=== PATIENT | male | born 1970 | race Caucasian/White ===

== ENCOUNTER 2018-11-18 14:13 | Day surgery (SDC) | payer BC, SELFPAY ==
[2018-11-18 14:53] VITALS: BP 128/82; PULSE 77; RESP 16; TEMP 37; O2SAT 99; BMI 25.4
[2018-11-18] MEDS: Cefazolin 2 GM in 0.9% Normal Saline 100 ML IV (17:15)
--- NOTE | 2018-11-18 17:17 | DCINST_ITS ---
Discharge Diet: Light diet - advance as tolerated Discharge Activity: Return to Normal Activity Call your doctor if your incision/area has: Sudden Increased Bleeding, Increased Pain/ Swelling, Increased Redness, Foul Smelling Discharge Call your doctor if you observe: Fever of 101 or Higher, Uncontrolled pain Suture Line Care: Avoid Pulling/Pushing, Avoid Pinching/Bending Allergies/Adverse Reactions: Allergies No Known Allergies Allergy (Verified 11/18/18 14:52) Medications to take at Discharge Ciprofloxacin [Cipro] 500 mg PO BID #6 tab 11/18/18 Hydrocodone/Acetaminophen [[place] 5-325 Tablet] 1 ea PO Q6H PRN PRN #20 tab 11/18/18 The following prescriptions were given: Ciprofloxacin [Cipro] 500 mg PO BID #6 tab Prescription Printed Hydrocodone/Acetaminophen [[place] 5-325 Tablet] 1 ea PO Q6H PRN PRN #20 tab PRN Reason: Pain Prescription Printed Primary Care Physician: Bob Dominique MD [Primary Care Provider] - Test Results: Test results from this visit will be discussed in further detail at your follow- up appointment, if applicable. Please Follow Up With: Dallin Mayers MD When: in 2 weeks, please call to make an appointment.
--- NOTE | 2018-11-18 17:37 | OP.PCM_ITS ---
Report of Operation Date of Procedure: 11/18/18 Pre-Operative Diagnosis: Right ureteral calculi with obstruction hydronephrosis Post-Operative Diagnosis: The same Surgery/Procedure Performed:: Cystoscopy, right retrograde, right stent placement interpretation fluoroscopic images, urine sent for culture. Description of Surgical Findings:: 48-year-old male who normally passes stones quite easily recently has had a stone in the right kidney is not passed for quite some time since the office for evaluation of then having some pain on the right side CAT scan was done that demonstrated a stone in the right kidney in the right proximal ureter right hydronephrosis. He did not appear ill or septic or sick but we decided to proceed with ureteroscopy and laser lithotripsy of the stone since he is not been able to pass it on his own he understands that he may need a stent if there is an injury to the ureter trauma perforation infection or any issues that require stent he requested not to have a stent but he understands it might be certain issues that would require a stent. 48-year-old male taken back to the operating room after smooth induction of anesthesia he is placed in dorsolithotomy position I went into the bladder with a 21 Portuguese rigid cystourethroscope he had a prior ureteral advancement surgery when he was a child he could tell that the both ureters were angulated very unusual fashion towards the mid trigone area probably from the ureteral reimplantation as a child, tried to cannulate the right ureteral orifice with a Glidewire but it was too difficult straight angle very gently try this a few times but could not get in so then I had to use a angle-tip 0.35 Glidewire with this I was able to fortunately get into the ureter advanced angle-tip wire up to the kidney once a wire and passed a stone that immediately I had pus coming down from the kidney purulent urine, I collected this urine was sent off as a culture could be sterile possibly given the fact that he had purulent infected looking urine decided that could not proceed with any treatment of the stone and will place a stent at this point. So over the wire advance a stent is a 6 Portuguese by 28 cm stent advanced a stent when he reached a stone that was quite difficult to get this then passed a stone a little bit of force of the views but then once able to get the stent past the stone that I pulled the wire the stent: Kidney bladder good position during the bladder well our plan is to bring him back for ESWL and blasto stones and then remove the stent at a later setting. Ago until his the findings of the reason why we could not proceed with laser the stone today. Type of Anesthesia:: General Drains: stent. - Admit VTE Documentation VTE Present on Admission: No VTE Mechan Device Prophylaxis: SCD's
[2018-11-18 17:49] VITALS: BP 127/98; BP 128/82; PULSE 82; RESP 16; TEMP 36.7; O2SAT 98
[2018-11-18 18:00] VITALS: BP 128/82; BP 129/96; PULSE 75; RESP 16; O2SAT 99
[2018-11-18] MEDS: Ketorolac 15 MG/ML Vial IV (18:04)
[2018-11-18 18:12] VITALS: BP 127/93; BP 128/82; PULSE 70; RESP 16; TEMP 36.7; O2SAT 97
[2018-11-18 18:42] VITALS: BP 128/82
== END 2018-11-18 18:44 | disposition home or self-care (01) ==
LOC: SDC 14:14 → AC 14:18
PROVIDERS: Family Provider Family Medicine; PCP Family Medicine; Referring Provider Urology; Visit Provider Urology
PROC: (CPT 52353; principal; 2018-11-18 16:10)
DX: N13.2 Hydronephrosis with renal and ureteral calculous obstruction (principal); Z87.442 Personal history of urinary calculi
CPT/HCPCS: 52332; 76000; 87070; 87075; 87205; J7120; C1769; J2405

== ENCOUNTER 2018-11-25 12:29 | Day surgery (SDC) | payer BC, SELFPAY ==
[2018-11-25 12:50] VITALS: BP 127/84; PULSE 55; RESP 16; TEMP 36.7; O2SAT 98; BMI 24.4
[2018-11-25] MEDS: Cefazolin 2 GM in 0.9% Normal Saline 100 ML IV (14:50)
--- NOTE | 2018-11-25 14:52 | DCINST_ITS ---
Discharge Diet: Light diet - advance as tolerated Discharge Activity: Return to Normal Activity Call your doctor if your incision/area has: Sudden Increased Bleeding Call your doctor if you observe: Fever of 101 or Higher Suture Line Care: Avoid Pulling/Pushing, Avoid Pinching/Bending Allergies/Adverse Reactions: Allergies No Known Allergies Allergy (Verified 11/25/18 12:49) Medications to take at Discharge NK 11/25/18 Primary Care Physician: Bob Dominique MD [Primary Care Provider] - Test Results: Test results from this visit will be discussed in further detail at your follow- up appointment, if applicable. Please Follow Up With: Dallin Mayers MD When: in 2 weeks, please call to make an appointment.
--- NOTE | 2018-11-25 16:01 | PCM.OPRPT ---
Report of Operation Date of Procedure: 11/25/18 Pre-Operative Diagnosis: right proximal ureteral calculi right renal calculi Post-Operative Diagnosis: Same Surgery/Procedure Performed:: Cystoscopy and stent removal right ESWL 2 ureter and kidney stone. Description of Surgical Findings:: 48-year-old male underwent stent placement last week presents today for shockwave lithotripsy he is placed supine on the table we then proceeded with shockwave lithotripsy first of the proximal stone around 3500 shockwaves were delivered to the stone in the proximal ureter we were then up to the kidney delivered another 8-700 shockwaves to the kidney this will broke up really quickly the one in the ureter did fragment several times performed a cystoscopy and stent removal look back up in the kidney still has some fragments in the proximal ureter with another 500 shockwaves was given to the stones in the ureter we went at a rate of 90 power ranged between 7 and 9 depending the location. At the end of the procedure the stone the broken up quite well but not completely cleared we will remove the stent hopefully can pass the stone was seen in a few weeks with a KUB. Type of Anesthesia:: General Drains: removed. - Admit VTE Documentation VTE Present on Admission: No VTE Mechan Device Prophylaxis: SCD's
[2018-11-25 16:12] VITALS: BP 120/93; BP 127/84; PULSE 97; RESP 18; TEMP 36.1; O2SAT 95
[2018-11-25 16:15] VITALS: BP 127/84; BP 127/91; PULSE 87; RESP 18; O2SAT 97
[2018-11-25 16:30] VITALS: BP 124/84; BP 127/84; PULSE 81; RESP 18; TEMP 36.3; O2SAT 100
[2018-11-25 18:01] VITALS: BP 127/84; BP 135/79; PULSE 80; RESP 16; TEMP 36.4; O2SAT 100
== END 2018-11-25 18:03 | disposition home or self-care (01) ==
LOC: SDC 12:30 → AC 12:39
PROVIDERS: Family Provider Family Medicine; PCP Family Medicine; Referring Provider Urology; Visit Provider Urology
PROC: (CPT 50590; principal; 2018-11-25 14:15)
DX: N20.2 Calculus of kidney with calculus of ureter (principal); R31.9 Hematuria, unspecified; Z87.442 Personal history of urinary calculi
CPT/HCPCS: 50590; J7120; J2405

== ENCOUNTER → 2018-12-13 15:04 | Outpatient (CLI) | payer BC, SELFPAY ==
[2018-11-25 12:50] VITALS: BMI 24.4
--- NOTE | 2018-12-13 15:25 | RAD_ITS ---
STUDY: X-RAY - ABDOMEN/PELVIS REASON FOR EXAM: Male, 48 years old. Kidney stone TECHNIQUE: Two AP supine views of the abdomen and pelvis. COMPARISON: Prior comparison studies are not available for review at this time. FINDINGS: There is a gassy appearance of the colon and small bowel. There is no demonstrated free abdominal air. The liver kidneys and spleen are mostly obscured on this study. There is abundant gas within the colon. On one image there is a suggestion that there may be a 3 mm stone overlying the left kidney versus artifact. Normal soft tissue structures. Normal visualized osseous structures. RAD/Abdomen Single View IMPRESSION: The kidneys are mostly obscured on this study. There is a suggestion of possible 3 mm stone in the left kidney possible 3 mm stone right kidney this is allowing for overlying gas within the colon and small bowel. Electronically Signed: Zo Loza MD at 17:03 EDT Tel , Service support ,
== END ==
PROVIDERS: Family Provider Family Medicine; PCP Family Medicine; Referring Provider Urology; Visit Provider Urology
DX: N20.0 Calculus of kidney (principal)
CPT/HCPCS: 74018

== ENCOUNTER → 2019-12-12 14:57 | Outpatient (CLI) | payer BC, SELFPAY ==
--- NOTE | 2019-12-12 15:00 | RAD_ITS ---
STUDY: X-RAY - ABDOMEN/PELVIS REASON FOR EXAM: Male, 49 years old. F/U FOR HX OF KIDNEY STONES. MOST RECENT WAS A YEAR AGO ON BOTH SIDES. TECHNIQUE: AP supine and upright views of the abdomen and pelvis. COMPARISON: None. FINDINGS: Normal visualized lung bases. There is an unremarkable bowel gas pattern. There is no demonstrated free abdominal air. The visualized liver, spleen and kidneys are grossly normal in size and morphology. No demonstrate calcifications overlying either renal shadow, or along the expected course of either ureter. However, one could be obscured by the overlying bowel gas and stool Normal soft tissue structures. There are diffuse degenerative changes of the visualized lumbar spine. RAD/Abdomen Single View IMPRESSION: No acute findings, retained stool Electronically Signed: Stephen Hines MD at 15:24 EDT , Service support ,
== END ==
PROVIDERS: PCP Family Medicine; Referring Provider Nurse Practitioner Adult Health; Visit Provider Nurse Practitioner Adult Health
DX: N20.9 Urinary calculus, unspecified (principal)
CPT/HCPCS: 74018

== ENCOUNTER 2020-08-09 15:19 | Outpatient (RCR) | payer BC, SELFPAY | END 2020-10-22 23:59 | LOC: IMMUN 15:19 | PROVIDERS: Visit Provider Family Medicine | DX: Z23 Encounter for immunization (principal) | CPT/HCPCS: 0001A; 0002A; 91300 ==

== ENCOUNTER 2024-05-04 02:15 | Emergency (ER) | payer BC, SELFPAY ==
[2024-05-04 02:16] VITALS: BP 148/97; PULSE 73; RESP 16; TEMP 36.4; O2SAT 99; BMI 23.8
[2024-05-04 02:18] VITALS: BP 148/97; PULSE 73; RESP 16; TEMP 36.4; O2SAT 99
--- NOTE | 2024-05-04 02:21 | CT_ITS ---
INDICATION: left flank pain EXAMINATION: CT ABDOMEN AND PELVIS WITHOUT CONTRAST - CT Abdomen And Pelvis W/O Contrast Injection TECHNIQUE: Helically acquired images were obtained of the abdomen and pelvis without oral or IV contrast. A radiation dose optimization technique was used for this scan. IV Contrast dosage and agent: None. Oral contrast: None. RADIATION DOSAGE (If Supplied By Facility): CTDIvol = ( 6.88 ) mGy, DLP = ( 383.25 ) mGycm COMPARISON: No relevant prior comparison study available FINDINGS: LOWER CHEST: Lung bases are clear. No cardiomegaly or pericardial effusion. LIVER: The liver is normal in size, shape, and attenuation. No focal mass. GALLBLADDER AND BILIARY TREE: The gallbladder is normally distended. No gallstones. No gallbladder wall thickening or edema. No intra- or extrahepatic biliary ductal dilation. PANCREAS: No focal cystic or solid mass. SPLEEN: Normal size without focal cystic or solid mass. ADRENAL GLANDS: No nodules. KIDNEYS AND URETERS: Normal renal size and position. Mild left hydroureteronephrosis. There is a 0.6 cm mid ureteral calculus at the L3-L4 level. Additional nonobstructing bilateral renal calculi. On the left at least 3 calculi are seen, measuring up to 0.4 cm at the midpole. On the right at least 4 calculi are present measuring up to 0.5 cm at the upper pole. PERITONEUM: No ascites or free air. No other fluid collection. BOWEL: The stomach is unremarkable. Normal caliber small bowel. No obstruction. No colonic wall thickening or inflammatory changes. Appendix not seen. Colonic diverticulosis without diverticulitis. LYMPH NODES: No enlarged mesenteric or retroperitoneal lymph nodes. VESSELS: Aorta is non-dilated. URINARY BLADDER: Unremarkable. REPRODUCTIVE ORGANS: No pelvic masses. ABDOMINAL WALL: No discrete abdominal or pelvic wall hernia. BONES: No acute or suspicious osseous abnormality. CT/Abdomen/Pelvis without Cont IMPRESSION: Mild left hydroureteronephrosis with a 0.6 cm mid ureteral obstructing calculus. Additional bilateral nonobstructing renal calculi. Electronically Signed: Ulises Valera MD at 4:04 EST ,
--- NOTE | 2024-05-04 02:25 | ED.VIS.GI ---
HPI HPI - GI History of Present Illness Chief Complaint: Flank Pain Informant: patient Narrative Narrative: Patient with sudden onset of pain in the left flank radiating down into the left lower quadrant an hour or so ago feels similar to kidney stone pain he has had in the past. Pain is colicky. Nausea but no vomiting. No problems urinating or gross hematuria. Has had lithotripsy and procedures to remove stones in the past. No syncope or other systemic symptoms prior to this. Drink a lot of water and took acetaminophen prior to coming. PFSH PFSH Medical History Kidney stones Home Medications ?Medication ?Instructions ?Recorded ?Last Taken ?Type ondansetron 8 mg disintegrating 8 mg PO Q8H PRN nausea and 05/04/24 Unknown Rx tablet vomiting #20 tabs oxycodone-acetaminophen 5 mg-325 1 tab PO Q6H PRN PRN Pain 3 days 05/04/24 Unknown Rx mg tablet #12 TABLETS Allergy/AdvReac Type Severity Reaction Status Date / Time No Known Allergies Allergy Verified 05/04/24 02:16 Surgical History S/P ACL repair History of appendectomy H/O lithotripsy Social History Smoking Status: Never smoker ROS ROS ED Constitutional Constitutional ED: Denies chills or fever(s) Eyes Eyes: Denies change in vision or diplopia ENT ENT ED: Denies rhinorrhea or sore throat Cardiovascular Cardiovascular: Denies chest pain or palpitations Respiratory/Chest Respiratory/Chest: Denies cough or dyspnea Gastrointestinal Gastrointestinal: Reports abdominal pain and nausea; Denies diarrhea or vomiting Genitourinary Genitourinary ED: Reports flank pain; Denies dysuria or hematuria Musculoskeletal Musculoskeletal: Denies back pain or neck pain Integumentary Denies abscess or rash Neurologic Neurologic: Denies headache(s), paresthesias or weakness Psychiatric Psychiatric: Denies anxiety or suicidal thoughts EXAM Physical Exam Const Vital Signs: 05/04/24 02:16 05/04/24 02:18 05/04/24 03:30 Temperature 97.5 F L 97.5 F L 97.8 F Temperature Source Oral Oral Oral Pulse Rate 73 73 70 Respiratory Rate 16 16 18 Blood Pressure 148/97 H 148/97 H 136/91 H Blood Pressure Mean 114 114 106 Pulse Ox 99 99 96 Oxygen Delivery Method Room Air Room Air Room Air 05/04/24 04:00 05/04/24 04:08 Temperature 98.1 F 98.1 F Temperature Source Oral Pulse Rate 68 67 Respiratory Rate 18 18 Blood Pressure 127/86 H 127/86 H Blood Pressure Mean 99 99 Pulse Ox 96 97 Oxygen Delivery Method Room Air Positive well nourished and well developed General Appearance ED: well developed and NAD HEENT Reports moist mucous membranes normocephalic and atraumatic Eyes PERRL and EOMs intact bilaterally Neck full ROM and supple Resp normal respiratory effort and clear to auscultation bilaterally Cardio regular rate, regular rhythm and no murmurs GI non-tender and non-distended Auscultation: normoactive bowel sounds Palpation: soft Back/Spine no CVA tenderness General Back: other FROM Extremity normal to inspection General Extremety ED: Negative for edema, pulses abnormal or tenderness General Extremity: Negative for edema or pulses abnormal Neuro oriented x3, CN's II-XII intact bilaterally and no sensory deficits noted Sensorium / Orientation: awake and alert Motor Exam: strength 5/5 throughout Skin no rashes or lesions noted and no wounds MDM MDM MDM Narrative Medical decision making narrative: Patient doing much better after Toradol, Zofran, morphine. Urine shows no sign of infection. There are calcium oxalate crystals present. Given his history of needing procedures to get stone out, obtained a CT to obtain more details about the stone he has now. I reviewed the images and the report which I agree with, there is a mid ureteral stone that is approximately 6 mm in diameter. Several other nephroliths bilaterally also noted which I discussed with him. Flomax not indicated at this time given its position. Patient symptoms are well-controlled here with single dosing of the above medications and he is stable for outpatient expectant management and follow-up as needed, we discussed reasons to return he is comfortable with that plan given prescriptions for analgesics and antiemetics. Lab Data Attestation: I reviewed the patient's lab results. Labs: Laboratory Results - last 24 hr 05/04/24 03:10 Urine Color Yellow Urine Clarity Clear Urine pH 6.0 Ur Specific [place] 1.015 Urine Protein 15 H Urine Glucose (UA) Normal Urine Ketones 5 H Urine Occult Blood 150 H Urine Nitrite Negative Urine Bilirubin Negative Urine Urobilinogen Normal Ur Leukocyte Esterase 25 H Urine RBC 10-25 SEEN Urine WBC 0-5 SEEN Ur Squamous Epith Cells 0-5 SEEN Calcium Oxalate Crystal 3+ Urine Bacteria 0 SEEN Urine Mucus 0 SEEN Radiography Diagnostic Testing: Clinical Impression(s) from Imaging Studies Abdomen/Pelvis CT 05/04/24 02:21 IMPRESSION: Mild left hydroureteronephrosis with a 0.6 cm mid ureteral obstructing calculus. Additional bilateral nonobstructing renal calculi. Electronically Signed: Ulises Valera MD at 4:04 EST Reading Location ID and State: [facility] / [place] Tel , Service support , Discharge Plan Triage Chief Complaint: Flank Pain ED Provider: Kristian Styles Dx/Rx/DC Orders Clinical Impression: Ureteral colic, Ureterolithiasis, Bilateral nephrolithiasis Instructions: ED Kidney Stone with Pain Prescriptions: New ondansetron 8 mg tablet,disintegrating 8 mg PO Q8H PRN (Reason: nausea and vomiting) Qty: 20 0RF oxycodone-acetaminophen 5-325 mg tablet 1 tab PO Q6H PRN PRN (Reason: Pain) 3 Days Qty: 12 0RF Primary Care Provider: Bob Dominique Referrals: Dallin Mayers MD [Med Staff - Active Staff] - 1 Week if not improving Bob Dominique MD [Primary Care Provider] - Activity Restrictions/Additional Instructions: For uncontrollable symptoms despite the prescriptions, return to the ER Print Language: Indonesian Disposition Disposition: Home, Self Care
[2024-05-04] MEDS: Ondansetron 4 MG/2 ML Vial IV (02:28)
[2024-05-04] MEDS: Morphine 4 MG/ML Syringe IV (02:28)
[2024-05-04] MEDS: Ketorolac 30 MG/ML Syringe IV (02:28)
[2024-05-04 03:15] LABS: Bacteria 0 SEEN /hpf (None Seen); Mucous, Urine 0 SEEN /hpf (<or=2+)
[2024-05-04 03:16] LABS: Color, Urine Yellow (Yellow); Glucose, Dipstick Normal (Normal); Ketone-Dipstick 5 mg/dl (Negative); Leukocyte Esterase-Dipstick 25 /ul (Negative); Nitrite-Dipstick Negative (Negative); Occult Blood-Urine 150 /ul (Negative); Protein-Dipstick 15 mg/dl (Negative); Specific Gravity, Urine 1.015 (1.002-1.030); Urine Bilirubin Dipstick Negative (Negative); Urine Clarity Clear (Clear); Urine Urobilinogen Normal (Normal)
[2024-05-04 03:30] VITALS: BP 136/91; PULSE 70; RESP 18; TEMP 36.6; O2SAT 96
[2024-05-04 03:51] LABS: Red Blood Cells-Urine 10-25 SEEN /hpf (0-5); White Blood Cells 0-5 SEEN /hpf (0-5)
[2024-05-04 03:52] LABS: Calcium Oxalate Crystals Ur 3+ /hpf (<or=2+); Squamous Epithelial Cells - UA 0-5 SEEN /hpf (0-5)
[2024-05-04 04:00] VITALS: BP 127/86; PULSE 68; RESP 18; TEMP 36.7; O2SAT 96
[2024-05-04 04:08] VITALS: BP 127/86; PULSE 67; RESP 18; TEMP 36.7; O2SAT 97
[2024-05-04] MEDS: oxyCODONE 5 MG Tablet PO (04:16)
== END 2024-05-04 04:33 | disposition home or self-care (01) ==
PROVIDERS: Emergency Provider Emergency Medicine; PCP Family Medicine; Visit Provider Emergency Medicine
DX: N13.2 Hydronephrosis with renal and ureteral calculous obstruction (principal); N23 Unspecified renal colic
CPT/HCPCS: 74176; 81001; 96374; 96375; 99283; A4216; J2405

== ENCOUNTER → 2025-02-26 | Outpatient (CLI) | payer OTHER, SELFPAY ==
--- NOTE | 2025-02-26 10:55 | RAD_ITS ---
PROCEDURE: ABDOMEN SINGLE VIEW 02/26/2025 REASON FOR EXAM: KIDNEY STONE. Recently passed a stone. Gets frequent stones. No pain today. TECHNIQUE: Procedure Code: RADABD Modality: DX Procedure: ABDOMEN SINGLE VIEW COMPARISON: None. FINDINGS: LUNG BASES: Lung bases clear where seen. BOWEL: The bowel gas pattern is unremarkable. No bowel obstruction. PERITONEUM/SOFT TISSUES: No appreciable free air. Few calcifications projected over the left kidney, the largest is 3.3 mm. BONES: No acute osseous abnormality. RAD/Abdomen Single View IMPRESSION: Left-sided nephrolithiasis. Reading Location: [id number]
== END | disposition home or self-care (01) ==
LOC: RAD 10:50
PROVIDERS: PCP Family Medicine; Referring Provider Urology; Visit Provider Urology
DX: N20.2 Calculus of kidney with calculus of ureter (principal)
CPT/HCPCS: 74018

== ENCOUNTER → 2025-03-07 | Outpatient (CLI) | payer OTHER, SELFPAY ==
--- NOTE | 2025-03-07 07:49 | EKG12_ITS ---
Test Reason : PRE OP Blood Pressure : */* mmHG Vent. Rate : 67 BPM Atrial Rate : 67 BPM P-R Int : 166 ms QRS Dur : 86 ms QT Int : 406 ms P-R-T Axes : 59 85 71 degrees QTcB Int : 429 ms Normal sinus rhythm Normal ECG Confirmed by Robin Doe ([id number]), senior technical editor TERENCE WHITT ([id number]) on 03/07/2025 1:26:12 PM Referred By: Dallin Mayers Confirmed By: Robin Doe
--- OUTSIDE RECORDS SUMMARY | 2025-03-07 08:06 | XMS RPT_ITS | CCD ---
Author Organization [facility] Care Team Providers Care Dry Mixer Name Role Phone Jacques Avery MD Primary Care Provider PARTH STONE Attending Unavailable SALLIE BRADFORD Primary Care Unavailable Jacques Avery MD Primary Care Provider Jacques Avery MD Primary Care Provider [phone] Monique REGISTERED REPRESENTATIVE.Gilbert ROBLEDO Unavailable Esperanza Perez PA-C Unavailable Jacques Avery MD Primary Care Provider Monique REGISTERED REPRESENTATIVE.QUALITY ASSURANCE ASSISTANTGilbert Unavailable Esperanza Perez PA-C [facility]available [facility] Primary [facility] Unavailable Kristian Styles Attending Unavailable Dallin Mayers Attending Unavailable RianaDallin minaya Referring Unavailable ElderBob moreira Primary Care Unavailable RianaDallin minaya Attending Unavailable RianaDallin Referring Unavailable Elderbroriki, Bob Primary Care Unavailable JACQUES AVERY Primary Care Unavailable JACQUES AVERY Primary Care Unavailable GILBERT LEMONS Attending Unavailable JACQUES AVERY Primary Care Unavailable ESPERANZA PEREZ Referring Unavailable JACQUES AVERY Primary Care Unavailable JACQUES AVERY Primary Care Unavailable JACQUES AVERY Primary Care Unavailable ESPERANZA PEREZ Attending Unavailable JACQUES AVERY Primary Care Unavailable ESPERANZA PEREZ Attending Unavailable JACQUES AVERY Primary Care Unavailable Allergies Allergy Classification Reported Allergen(s) Allergy Type Date of Onset Reaction(s) Facility (4 sources) beta-Blocking agent Propensity to adverse reactions to drug 1 Contraindicatio n-[facility] Work Phone: (20 sources) Seasonal allergy; Translations: [SEASONAL ALLERGIES] Allergy to substance 3 Other: See Comments [facility] (3 sources) beta-Blocking agent Propensity to adverse reactions to drug 1 Contraindicatio n-[facility] Work Phone: (1 source) ALLERGIES NOT ON FILE; Translations: [ALLERGIES NOT ON FILE] Propensity to adverse reactions (disorder) [facility] 3 Repository Medications Current Medications Medication Drug Class(es) Dates Sig (Normalized) Sig (Original) [id number] 200 actuat albuterol 0.09 mg/actuat metered dose inhaler (20 sources) beta2-Adrenergic Agonist Start: 02-15-2024 End: 12-05-2024 take 2 puff(s) by inhalation every four hours as needed for wheezing albuterol HFA (VENTOLIN HFA) 90 mcg/actuation inhaler Indications: Acute cough Inhale 2 Puffs as instructed every 4 hours as needed for wheezing/shortness of breath. 1 Each 08/11/2024 12/05/2024 Discontinued Start: 02-02-2022 End: 12-31-2023 take 2 puff(s) by inhalation every four hours as needed for wheezing albuterol HFA (VENTOLIN HFA) 90 mcg/actuation inhaler Inhale 2 Puffs as instructed every 4 hours as needed for wheezing/shortness of breath. 1 Each 0 02/02/2022 12/31/2023 Discontinued Comment on above: Inhale 2 Puffs as in structed every 4 hours as needed for wheezing/shortness of breath. amoxicillin 875 mg / clavulanate 125 mg oral tablet (1 source) Penicillin-class Antibacterial Start: 025 End: 025 take 1 tablet by mouth twice daily amoxicillin-clavula jorgito potassium (AUGMENTIN) 875-125 mg per tablet Indications: Bacterial sinusitis Take 1 tablet by mouth two times a day for 5 days. 10 tablet 07/23/2024 07/28/2024 Active azithromycin 250 mg oral tablet (1 source) Macrolide Antimicrobial Start: 024 End: azithromycin (ZITHROMAX Z-DARRYL) 250 mg tablet Take 2 tablets day one, then, 1 tablet daily until gone. 6 tablet 0 12/31/2023 01/05/2024 Active benzonatate 100 mg oral capsule (20 sources) Non-narcotic Antitussive Start: End: take 1 capsule by mouth three times daily as needed for cough benzonatate (TESSALON PERLE) 100 mg capsule Indications: Acute cough Take 1 capsule by mouth three times a day as needed for cough. 20 capsule 08/11/2024 12/05/2024 Discontinued Start: 02-02-2022 End: 12-31-2023 take 1 capsule by mouth every eight hours as needed benzonatate (TESSALON PERLE) 100 mg capsule Take 1 capsule by mouth three times daily as needed for cough. 20 capsule 0 02/02/2022 12/31/2023 Discontinued Comment on above: Take 1 capsule by [facility] three times daily as needed for cough. cyclobenzaprine hydrochloride 10 mg oral tablet (4 sources) Muscle Relaxant Start: 2024 take 1 tablet by mouth every eight hours as needed cyclobenzaprine (FLEXERIL) 10 mg tablet Take 1 tablet by mouth three times a day as needed for muscle spasm. 15 tablet 12/05/2024 Active [id number] 0.3 ml EPINEPHrine 1 mg/ml auto-injector (5 sources) alpha-Adrenergic Agonist, beta-Adrenergic Agonist, Catecholamine Start: 2020 End: 2021 EPINEPHrine (EPIPEN 2-DARRYL) 0.3 mg/0.3 mL auto-injector Inject 0.3 mL intramuscularly as needed. For allergic reaction.Seek emergent medical care immediately after use.Disp:1 2-pakw/system trainer 1 Each 2 02/12/2021 02/02/2022 Discontinued Comment on above: Inject 0.3 mL intram uscularly as needed. For allergic reaction.Seek emergent medical care immediately after use.Disp:1 2-pakw/system trainer methylPREDNISolone (3 sources) Corticosteroid Start: 2024 End: 2024 methylPREDNISolone (MEDROL, DARRYL,) 4 mg Dose-Pack Follow dosing instructions, take with food. 21 tablet 12/25/2024 12/31/2024 Active Start: 02-02-2022 End: 02-08-2022 methylPREDNISolone (MEDROL, DARRYL,) 4 mg Dose-Pack Follow dosing instructions, take with food. 21 tablet 0 02/02/2022 02/08/2022 Active Comment on above: Follow dosing instru ctions, take with food. naproxen 500 mg oral tablet (4 sources) Nonsteroidal Anti-inflammatory Drug Start: 12-05-2024 take 1 tablet by mouth every twelve hours as needed naproxen (NAPROSYN) 500 mg tablet Take 1 tablet by mouth two times a day as needed (for pain/inflammation) . Take with food. 30 tablet 12/05/2024 Active Completed/Discontinued Medications Medication Drug Class(es) Dates Sig (Normalized) Sig (Original) fluticasone propionate 0.05 mg/actuat metered dose nasal spray (17 sources) Corticosteroid Start: 01-13-2021 End: 12-31-2023 take 2 spray(s) by mouth once daily fluticasone (FLONASE) 50 mcg/actuation nasal spray Use 2 Sprays in each nostril once daily. Rinse mouth after use. 1 Bottle 2 01/13/2021 12/31/2023 Discontinued Comment on above: Use 2 Sprays in each nostril once daily. Rinse mouth after use. sertraline 50 mg oral tablet (17 sources) Serotonin Reuptake Inhibitor Start: 09-22-2021 End: 12-31-2023 sertraline (ZOLOFT) 50 mg tablet Take 1/2 tablet daily x6 days then go up to 1 tablet daily. 30 tablet 2 09/22/2021 12/31/2023 Discontinued Start: 01-13-2021 sertraline (ZO LOFT) 50 mg tablet Take 1/2 tablet daily x6 days then go up to 1 tablet daily. 30 tablet 2 01/13/2021 Active Comment on above: Take 1/2 tablet iftikhar y x6 days then go up to 1 tablet daily. sod sulf-pot chloride-mag sulf (SUTAB) 1.479-0.188- 0.225 gram tab (1 source) Start: 02-09-2022 End: 02-11-2022 sod sulf-pot chloride-mag sulf (SUTAB) 1.479-0.188- 0.225 gram tab Indications: Screening for colon cancer Take 12 tablets by mouth as directed for 2 days. Follow instructions that have been given to you by your provider's office. (Part 1, take 12 tablets. Part 2, take 12 tablets). 24 tablet 0 02/09/2022 02/11/2022 Comment on above: Take 12 tablets by tamiko heidi as directed for 2 days. Follow instructions that have been given to you by your provider's office. (Part 1, take 12 tablets. Part 2, take 12 tablets). Problems Active Problems Problem Classification Problem Date Documented Da te Episodic/Chronic Anxiety disorders (20 sources) Acute stress disorder; Translations: [Acute stress reaction] Onset: 02-11-2021 02-11-2021 Chronic Asthma (20 sources) Reactive airway disease; Translations: [Unspecified asthma, uncomplicated] Onset: 10-15-2012 05-12-2021 Chronic Calculus of urinary tract (20 sources) Kidney stone; Translations: [Calculus of kidney] Onset: 04-29-2006 03-18-2009 Episodic E Codes: Natural/environment (1 source) Dog bite - wound; Translations: [Bitten by dog, initial encounter] 10-05-2023 Episodic Immunizations and screening for infectious disease (1 source) Viral screening status; Translations: [Encounter for screening for other viral diseases] 01-06-2024 Episodic Other connective tissue disease (2 sources) Plantar fasciitis; Translations: [Plantar fascial fibromatosis] 12-25-2024 Episodic Other connective tissue disease (1 source) Plantar fascial fibromatosis; Translations: [Plantar fasciitis] Onset: 12-25-2024 Episodic Other lower respiratory disease (2 sources) Cough; 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] Episodic Other screening for suspected conditions (not mental disorders or infectious disease) (6 sources) Patient encounter status; Translations: [Encounter for screening for malignant neoplasm of colon] Episodic Other skin disorders (1 source) Keloid scar; Translations: [Hypertrophic scar] 11-24-2024 Episodic Other upper respiratory disease (20 sources) Seasonal allergy; Translations: [Other seasonal allergic rhinitis] Onset: 08-09-2015 08-09-2015 Chronic Other upper respiratory disease (20 sources) Allergic rhinitis due to animals; Translations: [Allergic rhinitis due to animal (cat) (dog) hair and dander] Onset: 02-12-2021 02-12-2021 Chronic Other upper respiratory disease (20 sources) Allergic rhinitis due to pollen; Translations: [Allergic rhinitis due to pollen] Onset: 02-12-2021 02-12-2021 Chronic Other upper respiratory infections (1 source) Bacterial sinusitis; Translations: [Chronic sinusitis, unspecified] 07-23-2024 Chronic Other upper respiratory infections (1 source) Acute upper respiratory infection; Translations: [Acute upper respiratory infection, unspecified] 12-31-2023 Episodic Screening and history of mental health and substance abuse codes (1 source) Encounter for screening for depression; Translations: [Screening for depression] Onset: 12-05-2024 Episodic Spondylosis; intervertebral disc disorders; other back problems (3 sources) Low back pain; Translations: [Lumbar back pain] 12-05-2024 Episodic Sprains and strains (3 sources) Low back strain; Translations: [Strain of muscle, fascia and tendon of lower back, subsequent encounter] Onset: 12-25-2024 12-25-2024 Episodic Unclassified (1 source) Lumbar back pain; Translations: [Lumbar back pain] Onset: 12-05-2024 Past or Other Problems Problem Classification Problem Date Documented Da te Episodic/Chronic Abdominal pain (1 source) Unspecified abdominal pain; Translations: [Unspecified abdominal pain] Onset: 06-02-2024 Episodic Diabetes mellitus without complication (20 sources) High hemoglobin A1c level; Translations: [Other abnormal glucose] Onset: 01-13-2021 01-13-2021 Episodic Other skin disorders (1 source) Hypertrophic scar; Translations: [Keloid scar] Onset: 11-24-2024 Episodic Other upper respiratory disease (20 sources) Deviated nasal septum; Translations: [Deviated nasal septum] Onset: 12-28-2016 12-28-2016 Episodic Results Test Name Value Interpretation Reference Range Facility Abdomen Single Viewon 2024 Abdomen Single View [facility] Imaging Services [address] [place] [id number] Abdomen Single View MR#: [id number] Acct: [id number] Name: MATTHEW VIVAR Rep #: [id number] : 1970 M 54 From: Penny Tomlinson MD PCP: Dr. Bob Dominique MD Status: REG CLI Study: Abdomen Single View Date of Exam: 02/26/25 Exam# [id number] Ordering Dr: Dallin Mayers MD PROCEDURE: ABDOMEN SINGLE VIEW 02/26/2025 REASON FOR EXAM: KIDNEY STONE. Recently passed a stone. Gets frequent stones. No pain today. TECHNIQUE: Procedure Code: RADABD Modality: DX Procedure: ABDOMEN SINGLE VIEW COMPARISON: None. FINDINGS: LUNG BASES: Lung bases clear where seen. BOWEL: The bowel gas pattern is unremarkable. No bowel obstruction. PERITONEUM/SOFT TISSUES: No appreciable free air. Few calcifications projected over the left kidney, the largest is 3.3 mm. BONES: No acute osseous abnormality. RAD/Abdomen Single View IMPRESSION: Left-sided nephrolithiasis. Reading Location: [facility] CC: Dr. Dallin Mayers MD; Dr. Bob Dominique MD Staff Trainer: Signed Normal [facility] CNOVon 12-25-2024 [facility] Office Visit (FAMPWS ) ----- GHAZALAMATTHEW Riley ([id number]) 1970 M Date Time Provider Department 12/25/24 7:40 AM ESPERANZA PEREZ FAMPWS During your visit today, we recorded the following information about you: Temperature Pulse Respiration Blood pressure 96.4 degrees 70/minute 12/minute 120/86 Weight 78.9 kg Esperanza Perez PA-C 12/25/2024 8:15 AM Signed Chief Complaint Patient presents with: Follow Up HPI Matthew Vivar is a 54 year old male who presents here today for recheck. Back Pain: - Persistent back pain, described as "ebbing and flowing." - Saw me on 12/05/2024 for similiar symptoms - Worsened after a recent trip to [place]; unable to sit up in bed without rolling over. - Pain exacerbated after moving a dresser, felt a "pop" in the back. - Initially managed with naproxen and a muscle relaxant, but reports minimal relief. - Alternated naproxen with Tylenol and engaged in stretching exercises, noting improvement. - Pain improved with activity, such as hiking; worsened with prolonged rest. - Able to play pickleball vigorously last night, resulting in mild soreness this morning. - Denies radicular pain or paresthesia in the lower extremities. - Recent x-ray showed mild osteophytes; no significant spinal changes. Nephrolithiasis: - Passed a small stone (1-2 mm) during the trip to [place]. - Uncertain if some pain was related to nephrolithiasis. - History of passing stones 2-4 mm in size, usually asymptomatic. Plantar Fasciitis: - Left foot plantar fasciitis, initially improving but currently pretty sore. Past medical history, appointments, medications, allergies reviewed. Previous Medical History PAST MEDICAL HISTORY[1] Previous Surgical History PAST SURGICAL HISTORY Procedure Laterality Date APPENDECTOMY HX COLONOSCOPY 03/20/2022 repeat in 10 years PAST SURGICAL HISTORY OF 1992 2000 2003 rt. and left knee reconstruction PAST SURGICAL HISTORY OF 05/17/1977 reconstruction of ureters PAST SURGICAL HISTORY OF 05/17/1987 appendix PAST SURGICAL HISTORY OF ~2009,2010, 2018 lithotripsy Family History FAMILY HISTORY[2] Patient Allergies ALLERGIES[3] Current Medications Meds Previous to this Encounter[4] Social History SOCIAL HISTORY[5] Review of Symptoms REVIEW OF SYSTEMS Musculoskeletal: (+) low back pain, (+) morning back stiffness, (+) left foot pain Neurological: (-) radiating leg pain SEE HPI EXAM: BP 120/86 Pulse 70 Temp (!) 35.8 ?C (96.4 ?F) Resp 12 Wt 78.9 kg (174 lb) SpO2 98% BMI 24.04 kg/m? General Appearance: Well appearing, alert, in no acute distress, well-hydrated, well nourished.. Health Maintenance List Pneumococcal Vaccine: 50+(1 of 1 - PCV) Never done Influenza Vaccine(1) due on 01/15/2025 Depression Screening due on 12/05/2025 Diabetes Screening due on 01/05/2027 Lipid Screening due on 01/05/2029 Colorectal Cancer Screening due on 03/20/2032 DTaP,Tdap,Td Vaccine(4 - Td or Tdap) due on 10/04/2033 Hepatitis B Vaccine Completed Hepatitis C Screening Completed Shingrix Vaccine Completed HIV Screening Discontinued Data reviewed RESULT: Counting reference: Lumbosacral junction. For the purposes of this report, L4-5 is considered the level of the iliac crest and assume there are 5 lumbar-type vertebrae. Anatomic variant: None. Vertebral body heights and sagittal alignment are maintained. Disc spaces are preserved with tiny ventral endplate osteophytes at several levels. Sacroiliac joints are intact. Assessment and Plan 1. Lumbar strain, subsequent encounter (S39.097D) - Acute exacerbation following recent travel and physical activity; symptoms improving with movement and stretching. - X-ray showed very mild osteophytes, no significant spinal changes. - No radicular symptoms on exam. - Start medrol pack; discussed potential side effects (increased appetite, insomnia, adrenal effects, hyperglycemia) and rationale for short-term use. - Refer to physical therapy for back and core strengthening; home exercises encouraged. - MRI may be considered if symptoms persist after PT. 2. Plantar fasciitis (M72.2) - Left foot pain worsening; to be addressed concurrently in PT. - Start steroid taper as above. 3. Personal history of urinary calculi (Z87.442) - Recent passage of a small stone (1-2 mm) while in [place]; no acute concerns at this time. Esperanza Perez PA-C Recording using [employer] software for draft documentation of the visit was discussed with the patient/authorized group sales representative; all questions welcomed and answered. Patient/authorized group sales representative agreed to proceed [1] Past Medical History: 12/28/2016: Deviated septum Comment: To the right 01/13/2021: Elevated hemoglobin A1c 10/2012: Reactive airway disease (HCC) Comment: small airway response to bronchodilator on (more content not included)... Normal [facility] CNOVon 12-05-2024 [facility] Office Visit (FAMPWS ) ----- MATTHEW VIVAR ([id number]) 1970 M Date Time Provider Department 12/05/24 7:20 AM ESPERANZA PEREZ During your visit today, we recorded the following information about you: Temperature Pulse Respiration Blood pressure 97 degrees 71/minute 16/minute 106/86 Weight 78.9 kg Esperanza Perez PA-C 12/05/2024 7:51 AM Signed Chief Complaint Patient presents with: Pain, Back HPI Matthew Vivar is a 54 year old male who presents here today for Above Complaints.. Right Lower Back Pain: - Dull, aching pain in the right lower back x1 week. - Onset after playing softball and pickleball; no known trauma. - Pain is most noticeable at night when lying down and in the morning upon waking. - Aggravated by sitting up from a lying position. - Alleviated somewhat by stretching and yoga. - Pain is persistent but not severe; does not significantly improve with ibuprofen 400 mg or Aleve 440 mg. - Denies radiation of pain, numbness, or tingling in the legs. - No urinary symptoms. - History of cervical disc bulge; concerned about possible lumbar disc involvement. - Upcoming trip to [place] on Wednesday; concerned about managing pain during travel. Past medical history, appointments, medications, allergies reviewed. Previous Medical History PAST MEDICAL HISTORY Diagnosis Date Deviated septum 12/28/2016 To the right Elevated hemoglobin A1c 01/13/2021 Reactive airway disease (HCC) 10/2012 small airway response to bronchodilator on PFT Renal calculi Seasonal allergies 08/09/2015 Previous Surgical History PAST SURGICAL HISTORY Procedure Laterality Date APPENDECTOMY HX COLONOSCOPY 03/20/2022 repeat in 10 years PAST SURGICAL HISTORY OF 1992 2000 2003 rt. and left knee reconstruction PAST SURGICAL HISTORY OF 05/17/1977 reconstruction of ureters PAST SURGICAL HISTORY OF 05/17/1987 appendix PAST SURGICAL HISTORY OF ~2009,2010, 2018 lithotripsy Family History FAMILY HISTORY Problem Relation Age of Onset Lipids Mother Hypertension Father other (Parkinsons Disease [Other]) Father No Known Problems Sister Cancer Maternal Grandmother gastric Ischemic Heart Disease Maternal Grandfather Colon Cancer Paternal Grandmother age 70's. spread to liver Parkinson?s Disease Paternal Grandfather Breast Cancer Paternal Aunt Diabetes No Family History Stroke No Family History Bleeding disorder No Family History Patient Allergies ALLERGIES Allergen Reactions Seasonal Allergies Other: See Comments cats trees (July, August and September) molds (July through March) ragweed (December, January and February) Current Medications Current Outpatient Medications on File Prior to Visit Medication Sig albuterol HFA (VENTOLIN HFA) 90 mcg/actuation inhaler Inhale 2 Puffs as instructed every 4 hours as needed for wheezing/shortness of breath. benzonatate (TESSALON PERLE) 100 mg capsule Take 1 capsule by mouth three times a day as needed for cough. No current facility-administered medications on file prior to visit. Social History Social History Tobacco Use Smoking status: Never Smokeless tobacco: Never Vaping Use Vaping status: Never Used Substance Use Topics Alcohol use: Yes Comment: once a week Drug use: No Review of Symptoms REVIEW OF SYSTEMS SEE HPI EXAM: BP 106/86 (BP Site: Right Arm, BP Position: Sitting, BP Cuff Size: Regular Adult) Pulse 71 Temp 36.1 ?C (97 ?F) Resp 16 Wt 78.9 kg (174 lb) SpO2 98% BMI 24.04 kg/m? GENERAL: NAD, alert and oriented. EXTREMITIES: Normal, no deformities, no skin discoloration, no edema. BACK: Mild tightness noted with flexion and extension, no significant pain elicited. no pain to palp of spine or SI joint. neg SLR. pain of right side muscularture. NEURO: Awake, alert and oriented x3, cranial nerves II-XII grossly intact, normal gait, no involuntary motions. Health Maintenance List Depression Screening Never done Pneumococcal Vaccine: 50+(1 of 1 - PCV) Never done Influenza Vaccine(1) due on 01/15/2025 Diabetes Screening due on 01/05/2027 Lipid Screening due on 01/05/2029 Colorectal Cancer Screening due on 03/20/2032 DTaP,Tdap,Td Vaccine(4 - Td or Tdap) due on 10/04/2033 Hepatitis B Vaccine Completed Hepatitis C Screening Completed Shingrix Vaccine Completed Covid-19 Vaccine Completed HIV Screening Discontinued Data reviewed N/a Assessment and Plan 1. Lumbar back pain (M54.50) - Suspect lumbar strain - Ordered lumbar spine X-ray to evaluate for potential degenerative changes or other structural abnormalities. Patient informed that results may take 3-4 days. - Prescribed Naproxen 500 mg PO BID with food. - Prescribed a muscle relaxant to be taken at bedtime, with the option to take half a tablet during the day if needed. Discussed potential side effe (more content not included)... Normal [facility] XR LUMBAR 3V AP/LAT/L5-S1on 12-05-2024 XR LUMBAR 3V AP/LAT/L5-S1 * * *Final Report* * * DATE OF EXAM: Dec 05 2024 8:18AM [id number] - XR LUMBAR 3V AP/LAT/L5-S1 / PROCEDURE REASON: Lumbar back pain * * * * Physician Interpretation * * * * EXAMINATION / TECHNIQUE: XR LUMBAR 3V AP/LAT/L5-S1 HISTORY: Acute right sided low back pain, no known injury, Lumbar back pain COMPARISON: CT abdomen/pelvis dated 11/10/2018. RESULT: Counting reference: Lumbosacral junction. For the purposes of this report, L4-5 is considered the level of the iliac crest and assume there are 5 lumbar-type vertebrae. Anatomic variant: None. Vertebral body heights and sagittal alignment are maintained. Disc spaces are preserved with tiny ventral endplate osteophytes at several levels. Sacroiliac joints are intact. IMPRESSION: Minimal degenerative changes. Staff Trainer: PSCB Transcribe Date/Time: Dec 10 2024 9:57A Dictated by : NAKIA UMAÑA MD This examination was interpreted and the report reviewed and electronically signed by: NAKIA UMAÑA MD on Dec 10 2024 9:57AM EST [id number] Normal [facility] CNOVon 11-24-2024 [facility] Office Visit (FAMWS ) ----- MATTHEW VIVAR ([id number]) 1970 M Date Time Provider Department 11/24/24 8:40 AM GILBERT LEMONS During your visit today, we recorded the following information about you: Pulse Blood pressure Weight 60/minute 113/77 78 kg Gilbert Lemons APRN.QUALITY ASSURANCE ASSISTANT 11/24/2024 8:42 AM Signed Chief Complaint Patient presents with: Derm Problem: Check mole on back HPI Matthew Vivar is a 54 year old male who presents here today for Above Complaints.. Patient presents for concerning area on low left back. Patient reports his said he has a small raised area to his left lower back. Past medical history, appointments, medications, allergies reviewed. Previous Medical History PAST MEDICAL HISTORY Diagnosis Date Deviated septum 12/28/2016 To the right Elevated hemoglobin A1c 01/13/2021 Reactive airway disease 10/2012 small airway response to bronchodilator on PFT Renal calculi Seasonal allergies 08/09/2015 Previous Surgical History PAST SURGICAL HISTORY Procedure Laterality Date APPENDECTOMY HX COLONOSCOPY 03/20/2022 repeat in 10 years PAST SURGICAL HISTORY OF 1992 2000 2003 rt. and left knee reconstruction PAST SURGICAL HISTORY OF 05/17/1977 reconstruction of ureters PAST SURGICAL HISTORY OF 05/17/1987 appendix PAST SURGICAL HISTORY OF ~2009,2010, 2017 lithotripsy Family History FAMILY HISTORY Problem Relation Age of Onset Lipids Mother Hypertension Father other (Parkinsons Disease [Other]) Father No Known Problems Sister Cancer Maternal Grandmother gastric Ischemic Heart Disease Maternal Grandfather Colon Cancer Paternal Grandmother age 70's. spread to liver Parkinson?s Disease Paternal Grandfather Breast Cancer Paternal Aunt Diabetes No Family History Stroke No Family History Bleeding disorder No Family History Patient Allergies ALLERGIES Allergen Reactions Seasonal Allergies Other: See Comments cats trees (July, August and September) molds (July through March) ragweed (December, January and February) Current Medications Current Outpatient Medications on File Prior to Visit Medication Sig albuterol HFA (VENTOLIN HFA) 90 mcg/actuation inhaler Inhale 2 Puffs as instructed every 4 hours as needed for wheezing/shortness of breath. benzonatate (TESSALON PERLE) 100 mg capsule Take 1 capsule by mouth three times a day as needed for cough. No current facility-administered medications on file prior to visit. Social History Social History Tobacco Use Smoking status: Never Smokeless tobacco: Never Vaping Use Vaping status: Never Used Substance Use Topics Alcohol use: Yes Comment: once a week Drug use: No Review of Symptoms REVIEW OF SYSTEMS SEE HPI EXAM: BP 113/77 Pulse 60 Wt 78 kg (171 lb 15.3 oz) BMI 23.76 kg/m? General Appearance: Well appearing, alert, in no acute distress, well-hydrated, well nourished.. Skin: Positives: Keloid: back. Health Maintenance List Depression Screening Never done Pneumococcal Vaccine: 50+(1 of 1 - PCV) Never done Influenza Vaccine(1) due on 01/15/2025 Diabetes Screening due on 01/05/2027 Lipid Screening due on 01/05/2029 Colorectal Cancer Screening due on 03/20/2032 DTaP,Tdap,Td Vaccine(4 - Td or Tdap) due on 10/04/2033 Hepatitis B Vaccine Completed Hepatitis C Screening Completed Shingrix Vaccine Completed Covid-19 Vaccine Completed HIV Screening Discontinued ASSESSMENT/PLAN: 1. Keloid scar - ICD9: 701.4, ICD10: L91.0 -left lower back Gilbert Lemons APRN.QUALITY ASSURANCE ASSISTANT Allergies As of Date: 11/24/2024 Noted Allergy Reaction SEASONAL ALLERGIES 12/12/2012 14 - Other: See Comments Comments: cats trees (July, August and September) molds (July through March) ragweed (December, January and February) Date Reviewed: 11/24/2024 Reviewed by: Ana Garcia MA - Fully Assessed Reason for Visit: Derm Problem [33] Cmt: Check mole on back Primary Visit Diagnosis:Keloid scar [L91.0] Prescriptions as of 11/24/2024 - albuterol HFA (VENTOLIN HFA) 90 mcg/actuation inhaler Inhale 2 Puffs as instructed every 4 hours as needed for wheezing/shortness of breath. - benzonatate (TESSALON PERLE) 100 mg capsule Take 1 capsule by mouth three times a day as needed for cough. Problem List As Of Date 11/24/2024 Noted Resolved Calculus of Kidney [N20.0] 04/29/2006 Reactive airway disease [J45.909] 10/15/2012 Seasonal allergies [J30.2] 08/09/2015 Deviated septum [J34.2] 12/28/2016 History of renal stone [Z87.442] 11/09/2018 Elevated hemoglobin A1c [R73.09] 01/13/2021 Stress reaction [F43.0] 02/11/2021 Well adult exam [Z00.00] 02/11/2021 Allergic rhinitis due to cats [J30.81] 02/12/2021 Seasonal allergic rhinitis due to pollen [J30.1]02/12/2021 Disposition: Return if symptoms worsen or fail to improve. Follow-up and Disposition History for Encounter (more content not included)... Normal [facility] CNOVon 11-10-2024 CNOV Office Visit (NEUBSM ) ----- MATTHEW VIVAR ([id number]) 1970 M Date Time Provider Department 11/10/24 5:30 PM [facility] ([facility]) NEUBSM During your visit today, we recorded the following information about you: Shelbi Cruz APRN.QUALITY ASSURANCE ASSISTANT 11/10/2024 5:44 PM Signed DATE: November 10, 2024 PT. NAME: Matthew Vivar [facility]#: [id number] IRB [id number]. [facility] ([facility]) Centrifugal Operator: Carlee De La Cruz MD, , Von Karimi MD, [employer] Worker: Barbra Francis and Email: Time: 1701 EKG/ECG was performed on patient. Patient tolerated procedure well. BP: 123/84 BP Site: right arm BP Position: sitting Cuff size: regular Pulse: 67 Resp: 18 SPO2: 97 Weight: 173.8lb Height: 6'0 Have you received the Shingles Vaccine? Yes Age of first vaccination? 51 Year first vaccination was administered: 2021 Number of subsequent vaccinations: 1 Result of Physical Exam Body System Eyes: Normal Ears, Nose, Mouth and Throat: Normal Cardiovascular: Normal Respiratory: Normal Musculoskeletal: Normal Integumentary: Normal Handedness: Right hand Results of Mental Status Assessment Mental Assessments Attention: Abnormality Present: No Memory Working Memory: Abnormality Present: No Recent (Episodic) Memory: Abnormality Present: No Remote (Semantic) Memory: Abnormality Present: No Language Spontaneous Speech: Abnormality Present: No Comprehension: Abnormality Present: No Naming: Abnormality Present: No Repetition: Abnormality Present: No Reading: Abnormality Present: No Affect: Abnormality Present: No Craninal Nerve Assessment Visual Anderson: Normal EOM: Normal Nystagmus: Physiologic Pupils: Equal and reactive Ptosis: Absent Trigeminal: Normal CN VII: Normal CN VIII: Normal CN IX: Normal CN X: Normal CN XI: Normal CN XII: Normal Assessment of Motor and Bulk and Tones Motor Assessments Muscle bulk-global: Normal Muscle tone-global: Normal Motor Strength Assessment Shoulder flexion: Right 5 Left 5 Shoulder external rotation: Right 5 Left 5 Shoulder abduction: Right 5 Left 5 Elbow flexion: Right 5 Left 5 Elbow extension: Right 5 Left 5 Wrist flexion: Right 5 Left 5 Wrist extension: Right 5 Left 5 Finger flexion/sales agent casualty insurance: Right 5 Left 5 Flexor pollicis longus: Right 5 Left 5 Abductor pollicis brevis: Right 5 Left 5 Hip flexion: Right 5 Left 5 Hip extension: Right 5 Left 5 Hip abduction: Right 5 Left 5 Hip adduction: Right 5 Left 5 Knee flexion: Right 5 Left 5 Knee extension: Right 5 Left 5 Ankle eversion: Right 5 Left 5 Ankle inversion: Right 5 Left 5 Ankle plantar flexion: Right 5 Left 5 Ankle dorsiflexion: Right 5 Left 5 Extensor halluces longus: Right 5 Left 5 Flexor digitorum longus: Right 5 Left 5 Reflexes - MRC Grading Method Triceps: Right 2 Left 2 Biceps: Right 2 Left 2 Brachioradialis: Right 2 Left 2 Patellar: Right 2+ Left 2+ Achilles: Right 2+ Left 2+ Plantar: Right Downgoing Left Downgoing Weakness?: No Tremor: Yes Type of Tremor: Intention Tremor location: upper extremity Tremor Laterality: Both How long has the tremor been present? 30 year(s) Tremor diagnosis given? No Family history of tremor? Yes Tremor responds to alcohol? No REM sleep behavior disorder? No Change in smell? Yes Constipation? No Tremor Additional Details: Slight postural tremor noted to bilateral hands. Has had tremor for multiple years. Cerebellar/Coordination Assessment Hqnwsi-hw-Fdze: Abnormality present: No, Psja-dd-Lymo: Abnormality present: No, Finger Tapping - Abnormality present: No Fist Open/Close - Abnormality present: No Pronation/Supination of the Hand - Abnormality present: No Toe Tapping - Abnormality present: No Heel Tapping - Abnormality present: No Gait Gait-global assessment: Normal Toe Walk: Normal Heel Walk: Normal Tandem Walk: Normal Romberg: Pass Sensory/Sensation Sensory System-globlal assessment: Normal Shelbi Cruz APRN.QUALITY ASSURANCE ASSISTANT Allergies As of Date: 11/10/2024 Noted Allergy Reaction SEASONAL ALLERGIES 12/12/2012 14 - Other: See Comments Comments: cats trees (July, August and September) molds (July through March) ragweed (December, January and February) Date Reviewed: 07/23/2024 Reviewed by: Shea Damico MA - Fully Assessed Primary Visit Diagnosis:Examination of participant in clinical trial [Z00.6] Prescriptions as of 11/10/2024 - albuterol HFA (VENTOLIN HFA) 90 mcg/actuation inhaler Inhale 2 Puffs as instructed every 4 hours as needed for wheezing/shortness of breath. - benzonatate (TESSALON PERLE) 100 mg capsule Take 1 capsule by mouth three times a day as needed for cough. Problem List As Of Date (more content not included)... Normal [facility] CNOVon 07-23-2024 CNOV Office Visit (WSTR ) ----- VIVARMATTHEW MARQUEZ ([id number]) 1970 M Date Time Provider Department 07/23/24 12:15 PM GILBERT LEMONS [facility] During your visit today, we recorded the following information about you: Temperature Pulse Respiration Blood pressure 96.9 degrees 74/minute 16/minute 128/80 Weight 79.2 kg Gilbert Lemons APRN.CNP 07/23/2024 12:21 PM Signed [facility] Subjective Matthew Vivar is a 54 year old male. Presents for 7 day history of sinus congestion and pressure. Patient presents with: Sinus Problem: sinus pressure, drainage x 1 week 7 day history of sinus pain, pressure and drainage. Reports this am he coughed up a large amount of dark yellow sputum. The history is provided by the patient. Sinus Problem This is a new problem. The current episode started 1 to 4 weeks ago. The problem occurs constantly. The problem has been unchanged. Associated symptoms include congestion and fatigue. Pertinent negatives include no chest pain or coughing. Nothing aggravates the symptoms. The treatment provided no relief. Review of Systems Constitutional: Positive for fatigue. HENT: Positive for congestion, rhinorrhea, sinus pressure and sinus pain. Respiratory: Negative for cough and shortness of breath. Cardiovascular: Negative for chest pain. Objective BP 128/80 Pulse 74 Temp 36.1 ?C (96.9 ?F) Resp 16 Wt 79.2 kg (174 lb 9.7 oz) SpO2 97% BMI 24.12 kg/m? Physical Exam Constitutional: General: He is not in acute distress. Appearance: Normal appearance. He is normal weight. HENT: Head: Normocephalic. Nose: Congestion and rhinorrhea present. Mouth/Throat: Mouth: Mucous membranes are moist. Pharynx: No posterior oropharyngeal erythema. Cardiovascular: Rate and Rhythm: Normal rate and regular rhythm. Pulmonary: Effort: Pulmonary effort is normal. Breath sounds: Normal breath sounds. Musculoskeletal: Cervical back: Neck supple. No tenderness. Neurological: Mental Status: He is alert. ASSESSMENT/PLAN: 1. Bacterial sinusitis - ICD9: 473.9, 041.9, ICD10: J32.9, B96.89 - Will begin treatment with Amoxicillin for 7 days - The patient should also be given OTC decongestants prn, OTC cough and cold meds as needed, warm salt water gargles, throat lozenges and/or OTC throat spray as needed, and nasal saline gtts and suction prn for the first 5-7 days of treatment. - Supportive care with plenty of fluids, rest, and analgesia prn. - Follow up in 3-5 days if symptoms persist or worsen. - AMOXICILLIN 875 MG-POTASSIUM CLAVULANATE 125 MG TABLET Gilbert Lemons, REGISTERED REPRESENTATIVE.QUALITY ASSURANCE ASSISTANT Differential Diagnoses - Bacterial Sinusitis is more likely for the following reason(s): suggested by HANDP - Viral illness is less likely for the following reason(s): HANDP not suggestive Disposition The patient was discharged. Allergies As of Date: 07/23/2024 Noted Allergy Reaction SEASONAL ALLERGIES 12/12/2012 14 - Other: See Comments Comments: cats trees (July, August and September) molds (July through March) ragweed (December, January and February) Date Reviewed: 07/23/2024 Reviewed by: Shea Damico MA - Fully Assessed Reason for Visit: Sinus Problem [99] Cmt: sinus pressure, drainage x 1 week Primary Visit Diagnosis:Bacterial sinusitis [J32.9, B96.89] Order(s):amoxicillin-clav ulanate potassium (AUGMENTIN) 875-125 mg per tabletTake 1 tablet by mouth two times a day for 5 days.Disp: 10 tabletRfl: 0 Prescriptions as of 07/23/2024 - amoxicillin-clavulanate potassium (AUGMENTIN) 875-125 mg per tablet Take 1 tablet by mouth two times a day for 5 days. - benzonatate (TESSALON PERLE) 100 mg capsule Take 1 capsule by mouth three times a day as needed for cough. - albuterol HFA (VENTOLIN HFA) 90 mcg/actuation inhaler Inhale 2 Puffs as instructed every 4 hours as needed for wheezing/shortness of breath. Problem List As Of Date 07/23/2024 Noted Resolved Calculus of Kidney [N20.0] 04/29/2006 Reactive airway disease [J45.909] 10/15/2012 Seasonal allergies [J30.2] 08/09/2015 Deviated septum [J34.2] 12/28/2016 History of renal stone [Z87.442] 11/09/2018 Elevated hemoglobin A1c [R73.09] 01/13/2021 Stress reaction [F43.0] 02/11/2021 Well adult exam [Z00.00] 02/11/2021 Allergic rhinitis due to cats [J30.81] 02/12/2021 Seasonal allergic rhinitis due to pollen [J30.1]02/12/2021 Prescriptions ordered this encounter Disp Refills Start End AMOXICILLIN 875 MG-POTASSIUM CLAVULA* 10 t* 0 07/23/2024 07/28/2024 Route: ORAL Sig: Take 1 tablet by mouth two times a day for 5 days. Disposition: Return if symptoms worsen or fail to improve. Follow-up and Disposition History for Encounter Date Provider Department Center 07/23/2024 [id number] LEMONS [facility] Encounter Status:Closed by GILBERT LEMONS on 07/23/24 [facility] 07-07-2024 [facility] Telephone ([id number]) ----- MATTHEW VIVAR ([id number]) 1970 M Date Time Provider Department 07/07/24 AB GALICIA NE50MN During your visit today, we recorded the following information about you: Ab Galicia, Research Coordinator 07/07/2024 2:01 PM Signed IRB [id number]. Multidisciplinary lifestyle Interventions for Neurological Disorders during the Silent Phase (MINDS) Centrifugal Operator: Alo Rodrigez MD , Carlee De La Cruz MD, , Von Karimi MD, [employer] Worker: Ab Galicia, Research Coordinator and Email: [email or web address] Left voicemail message to discuss the MINDS Study. Provided phone number, for Matthew Vivar to contact Ab Galicia, Research Coordinator, to further discuss the study. Ab Galicia, Research Coordinator Allergies As of Date: 07/07/2024 Noted Allergy Reaction SEASONAL ALLERGIES 12/12/2012 14 - Other: See Comments Comments: cats trees (July, August and September) molds (July through March) ragweed (December, January and February) Date Reviewed: 01/06/2024 Reviewed by: Sharon Friedman MA - Fully Assessed Reason for Visit: Research [[id number]] Cmt: IRB [id number] Prescriptions as of 07/07/2024 - benzonatate (TESSALON PERLE) 100 mg capsule Take 1 capsule by mouth three times a day as needed for cough. - albuterol HFA (VENTOLIN HFA) 90 mcg/actuation inhaler Inhale 2 Puffs as instructed every 4 hours as needed for wheezing/shortness of breath. Problem List As Of Date 07/07/2024 Noted Resolved Calculus of Kidney [N20.0] 04/29/2006 Reactive airway disease [J45.909] 10/15/2012 Seasonal allergies [J30.2] 08/09/2015 Deviated septum [J34.2] 12/28/2016 History of renal stone [Z87.442] 11/09/2018 Elevated hemoglobin A1c [R73.09] 01/13/2021 Stress reaction [F43.0] 02/11/2021 Well adult exam [Z00.00] 02/11/2021 Allergic rhinitis due to cats [J30.81] 02/12/2021 Seasonal allergic rhinitis due to pollen [J30.1]02/12/2021 Encounter Status:Closed by AB GALICIA on 07/07/24 [facility] 06-30-2024 CNPN Telephone (NE50MN) ----- MATTHEW VIVAR ([id number]) 1970 M Date Time Provider Department 06/30/24 AB GALICIA NE50MN During your visit today, we recorded the following information about you: Ab Galicia, Research Coordinator 06/30/2024 2:06 PM Signed IRB [id number]. Multidisciplinary lifestyle Interventions for Neurological Disorders during the Silent Phase (MINDS) Centrifugal Operator: Alo Rodrigez MD , Carlee De La Cruz MD, , Von Kairmi MD, [employer] Worker: Ab Galicia Research Coordinator and Email: [email or web address] Left voicemail message to discuss the MINDS Study. Provided phone number, for Matthew Vivar to contact Ab Galicia Research Coordinator, to further discuss the study. Ab Lioi, Research Coordinator Allergies As of Date: 06/30/2024 Noted Allergy Reaction SEASONAL ALLERGIES 12/12/2012 14 - Other: See Comments Comments: cats trees (July, August and September) molds (July through March) ragweed (December, January and February) Date Reviewed: 01/06/2024 Reviewed by: Sharon Friedman MA - Fully Assessed Reason for Visit: Research [[id number]] Cmt: IRB [id number] Prescriptions as of 06/30/2024 - benzonatate (TESSALON PERLE) 100 mg capsule Take 1 capsule by mouth three times a day as needed for cough. - albuterol HFA (VENTOLIN HFA) 90 mcg/actuation inhaler Inhale 2 Puffs as instructed every 4 hours as needed for wheezing/shortness of breath. Problem List As Of Date 06/30/2024 Noted Resolved Calculus of Kidney [N20.0] 04/29/2006 Reactive airway disease [J45.909] 10/15/2012 Seasonal allergies [J30.2] 08/09/2015 Deviated septum [J34.2] 12/28/2016 History of renal stone [Z87.442] 11/09/2018 Elevated hemoglobin A1c [R73.09] 01/13/2021 Stress reaction [F43.0] 02/11/2021 Well adult exam [Z00.00] 02/11/2021 Allergic rhinitis due to cats [J30.81] 02/12/2021 Seasonal allergic rhinitis due to pollen [J30.1]02/12/2021 Encounter Status:Closed by AB GALICIA on 06/30/24 [facility] 06-21-2024 [facility] Telephone ([id number]) ----- MATTHEW VIVAR ([id number]) 1970 M Date Time Provider Department 06/21/24 AB GALICIA NE50MN During your visit today, we recorded the following information about you: Ab Galicia, Research Coordinator 06/21/2024 10:56 AM Signed IRB [id number]. Multidisciplinary lifestyle Interventions for Neurological Disorders during the Silent Phase (MINDS) Centrifugal Operator: Alo Rodrigez MD , Carlee De La Cruz MD, , Von Karimi MD, [employer] Worker: Ab Galicia Research Coordinator and Email: [email or web address] Left voicemail message to discuss the MINDS Study. Provided phone number, for Matthew Vivar to contact Ab Galicia, Research Coordinator, to further discuss the study. Ab Galicia Research Coordinator Allergies As of Date: 06/21/2024 Noted Allergy Reaction SEASONAL ALLERGIES 12/12/2012 14 - Other: See Comments Comments: cats trees (July, August and September) molds (July through March) ragweed (December, January and February) Date Reviewed: 01/06/2024 Reviewed by: Sharon Friedman MA - Fully Assessed Reason for Visit: Research [[id number]] Cmt: IRB [id number] Prescriptions as of 06/21/2024 - benzonatate (TESSALON PERLE) 100 mg capsule Take 1 capsule by mouth three times a day as needed for cough. - albuterol HFA (VENTOLIN HFA) 90 mcg/actuation inhaler Inhale 2 Puffs as instructed every 4 hours as needed for wheezing/shortness of breath. Problem List As Of Date 06/21/2024 Noted Resolved Calculus of Kidney [N20.0] 04/29/2006 Reactive airway disease [J45.909] 10/15/2012 Seasonal allergies [J30.2] 08/09/2015 Deviated septum [J34.2] 12/28/2016 History of renal stone [Z87.442] 11/09/2018 Elevated hemoglobin A1c [R73.09] 01/13/2021 Stress reaction [F43.0] 02/11/2021 Well adult exam [Z00.00] 02/11/2021 Allergic rhinitis due to cats [J30.81] 02/12/2021 Seasonal allergic rhinitis due to pollen [J30.1]02/12/2021 Encounter Status:Closed by AB GALICIA on 06/21/24 [facility] GHAZALAMATTHEW ([id number]) 1970 M Date Time Provider Department 06/12/24 AB GALICIA NE50MN During your visit today, we recorded the following information about you: Ab Galicia, Research Coordinator 06/12/2024 2:54 PM Signed IRB [id number]. Multidisciplinary lifestyle Interventions for Neurological Disorders during the Silent Phase (MINDS) Centrifugal Operator: Alo Rodrigez MD , Carlee De La Cruz MD, , Von Karimi MD, [employer] Worker: Ab Galicia Research Coordinator and Email: [email or web address] Ab Galicia Research Coordinator called Matthew Riley Ghazala to introduce the MINDS Study IRB 221. Matthew S Ghazala expressed interest in the study and requested more information. Ab Galicia Research Coordinator completed the pre-screen questionnaire with Matthew Osvaldo Ghazala. At this time, candidate is eligible and agreed to receive the PDF copy of the informed consent for review by email. Ab Galicia Research Coordinator will follow up with Matthew Osvaldo Ghazala in a few days to see if they have any questions and may be interested in enrolling. Date of pre-screen: June 12, 2024 Candidate: Matthew Vivar : 1970 Eligibility Criteria Answer Is the participant enrolled in the CC (IRB [id number])? (must be yes) Yes Was the participant referred to the MINDS team by a member of the CCBS team because the patient is demonstrating signs of increased risk for transition into a neurological disorder based on Table 1 (attached) of the MINDS study enrollment criteria? (must be yes) Yes Does the participant have the ability to independently provide informed consent? (must be yes) Yes Is the participant willing and able to participate in multidisciplinary lifestyle interventions? (must be yes) Yes This study will require 2 additional visits to [place] in the next year. Travel expenses are not covered by the study, however parking and the assessments completed for the study are included. Are you willing and able to travel to participate in the study? (must be yes) Yes Does the participant have reliable internet access and the ability to participate in online video streaming? (must be yes) Yes Has the participant engaged in a formal yoga, dietary, music therapy, speech therapy, or any other intervention program that specifically focuses on healthy lifestyle factors to improve brain or cognitive function within the past 4 weeks? (must be no) No Is the participant currently or less than 6 weeks ? (must be no) No Does the participant have significant hearing loss? (must be no) No Is the participant blind? (must be no) No Allergies As of Date: 06/12/2024 Noted Allergy Reaction SEASONAL ALLERGIES 12/12/2012 14 - Other: See Comments Comments: cats trees (July, August and September) molds (July through March) ragweed (December, January and February) Date Reviewed: 01/06/2024 Reviewed by: Sharon Friedman MA - Fully Assessed Reason for Visit: Research [[id number]] Cmt: IRB [id number] Prescriptions as of 06/12/2024 - benzonatate (TESSALON PERLE) 100 mg capsule Take 1 capsule by mouth three times a day as needed for cough. - albuterol HFA (VENTOLIN HFA) 90 mcg/actuation inhaler Inhale 2 Puffs as instructed every 4 hours as needed for wheezing/shortness of breath. Problem List As Of Date 06/12/2024 Noted Resolved Calculus of Kidney [N20.0] 04/29/2006 Reactive airway disease [J45.909] 10/15/2012 Seasonal allergies [J30.2] 08/09/2015 Deviated septum [J34.2] 12/28/2016 History of renal stone [Z87.442] 11/09/2018 Elevated hemoglobin A1c [R73.09] 01/13/2021 Stress reaction [F43.0] 02/11/2021 Well adult exam [Z00.00] 02/11/2021 Allergic rhinitis due to cats [J30.81] 02/12/2021 Seasonal allergic rhinitis due to pollen [J30.1]02/12/2021 Encounter Status:Closed by AB GALICIA on 06/12/24 [facility] 06-07-2024 [facility] Telephone ([id number]) ----- MATTHEW VIVAR ([id number]) 1970 M Date Time Provider Department 06/07/24 AB GALICIA NE50MN During your visit today, we recorded the following information about you: Ab Galicia, Research Coordinator 06/07/2024 2:27 PM Signed IRB [id number]. Multidisciplinary lifestyle Interventions for Neurological Disorders during the Silent Phase (MINDS) Centrifugal Operator: Alo Rodrigez MD , Carlee De La Cruz MD, , Von Karimi MD, [employer] Worker: Ab Galicia Research Junito and Email: [email or web address] Left voicemail message to introduce the MINDS Study. Provided phone number, for Matthew Vivar to contact Ab Galicia Research Coordinator, to further discuss the study. Ab Galicia Research Junito Allergies As of Date: 06/07/2024 Noted Allergy Reaction SEASONAL ALLERGIES 12/12/2012 14 - Other: See Comments Comments: cats trees (July, August and September) molds (July through March) ragweed (December, January and February) Date Reviewed: 01/06/2024 Reviewed by: Sharon Friedman MA - Fully Assessed Reason for Visit: Research [[id number]] Cmt: IRB [id number] Prescriptions as of 06/07/2024 - benzonatate (TESSALON PERLE) 100 mg capsule Take 1 capsule by mouth three times a day as needed for cough. - albuterol HFA (VENTOLIN HFA) 90 mcg/actuation inhaler Inhale 2 Puffs as instructed every 4 hours as needed for wheezing/shortness of breath. Problem List As Of Date 06/07/2024 Noted Resolved Calculus of Kidney [N20.0] 04/29/2006 Reactive airway disease [J45.909] 10/15/2012 Seasonal allergies [J30.2] 08/09/2015 Deviated septum [J34.2] 12/28/2016 History of renal stone [Z87.442] 11/09/2018 Elevated hemoglobin A1c [R73.09] 01/13/2021 Stress reaction [F43.0] 02/11/2021 Well adult exam [Z00.00] 02/11/2021 Allergic rhinitis due to cats [J30.81] 02/12/2021 Seasonal allergic rhinitis due to pollen [J30.1]02/12/2021 Encounter Status:Closed by AB GALICIA on 06/07/24 Normal [facility] Abdomen/Pelvis without Conto n 05-04-2024 Abdomen/Pelvis without Cont [facility] Imaging Services [address] [place] [address] [id number] Abdomen/Pelvis without Cont MR#: [id number] Acct: [id number] Name: MATTHEW VIVAR Rep #: [id number] : 1970 M 54 From: Ulises trent MD PCP: Dr. Bob Dominique MD Status: REG ER Study: Abdomen/Pelvis without Cont Date of Exam: 04/16 02/07 Exam# [id number] Ordering Dr: Kristian Styles MD [id number] INDICATION: left flank pain EXAMINATION: CT ABDOMEN AND PELVIS WITHOUT CONTRAST - CT Abdomen And Pelvis W/O Contrast Injection TECHNIQUE: Helically acquired images were obtained of the abdomen and pelvis without oral or IV contrast. A radiation dose optimization technique was used for this scan. IV Contrast dosage and agent: None. Oral contrast: None. RADIATION DOSAGE (If Supplied By Facility): CTDIvol = ( 6.88 ) mGy, DLP = ( 383.25 ) mGycm COMPARISON: No relevant prior comparison study available FINDINGS: LOWER CHEST: Lung bases are clear. No cardiomegaly or pericardial effusion. LIVER: The liver is normal in size, shape, and attenuation. No focal mass. GALLBLADDER AND BILIARY TREE: The gallbladder is normally distended. No gallstones. No gallbladder wall thickening or edema. No intra- or extrahepatic biliary ductal dilation. PANCREAS: No focal cystic or solid mass. SPLEEN: Normal size without focal cystic or solid mass. ADRENAL GLANDS: No nodules. KIDNEYS AND URETERS: Normal renal size and position. Mild left hydroureteronephrosis. There is a 0.6 cm mid ureteral calculus at the L3-L4 level. Additional nonobstructing bilateral renal calculi. On the left at least 3 calculi are seen, measuring up to 0.4 cm at the midpole. On the right at least 4 calculi are present measuring up to 0.5 cm at the upper pole. PERITONEUM: No ascites or free air. No other fluid collection. BOWEL: The stomach is unremarkable. Normal caliber small bowel. No obstruction. No colonic wall thickening or inflammatory changes. Appendix not seen. Colonic diverticulosis without diverticulitis. LYMPH NODES: No enlarged mesenteric or retroperitoneal lymph nodes. VESSELS: Aorta is non-dilated. URINARY BLADDER: Unremarkable. REPRODUCTIVE ORGANS: No pelvic masses. ABDOMINAL WALL: No discrete abdominal or pelvic wall hernia. BONES: No acute or suspicious osseous abnormality. CT/Abdomen/Pelvis without Cont IMPRESSION: Mild left hydroureteronephrosis with a 0.6 cm mid ureteral obstructing calculus. Additional bilateral nonobstructing renal calculi. Electronically Signed: Ulises Valera MD at 4:04 EST , CC: Dr. Kristian Styles MD; Dr. Bob Dominique MD Staff Trainer: Signed Normal [facility] Emergency Department Summary on 05-04-2024 Emergency Department Summary [facility] Medical Records Department [address] [place] [address] Emergency Department Summary 05/04/24 MR#: [id number] Acct: [id number] Name: MATTHEW VIVAR Rep #: [id number] : 1970 54 From: Kristian Styles MD PCP: Dr. Bob Dominique MD Status:REG ER Location: ED HPI HPI - GI History of Present Illness Chief Complaint: Flank Pain Informant: patient Narrative Narrative: Patient with sudden onset of pain in the left flank radiating down into the left lower quadrant an hour or so ago feels similar to kidney stone pain he has had in the past. Pain is colicky. Nausea but no vomiting. No problems urinating or gross hematuria. Has had lithotripsy and procedures to remove stones in the past. No syncope or other systemic symptoms prior to this. Drink a lot of water and took acetaminophen prior to coming. PFSH PFSH Medical History Kidney stones Home Medications ???Medication ???Instructions ???Recorded ???Last Taken ???Type ondansetron 8 mg disintegrating 8 mg PO Q8H PRN nausea and 05/04/24 Unknown Rx tablet vomiting #20 tabs oxycodone-acetaminophen 5 mg-325 1 tab PO Q6H PRN PRN Pain 3 days 05/04/24 Unknown Rx mg tablet #12 TABLETS Allergy/AdvReac Type Severity Reaction Status Date / Time No Known Allergies Allergy Verified 05/04/24 02:16 Surgical History S/P ACL repair History of appendectomy H/O lithotripsy Social History Smoking Status: Never smoker ROS ROS ED Constitutional Constitutional ED: Denies chills or fever(s) Eyes Eyes: Denies change in vision or diplopia ENT ENT ED: Denies rhinorrhea or sore throat Cardiovascular Cardiovascular: Denies chest pain or palpitations Respiratory/Chest Respiratory/Chest: Denies cough or dyspnea Gastrointestinal Gastrointestinal: Reports abdominal pain and nausea; Denies diarrhea or vomiting Genitourinary Genitourinary ED: Reports flank pain; Denies dysuria or hematuria Musculoskeletal Musculoskeletal: Denies back pain or neck pain Integumentary Denies abscess or rash Neurologic Neurologic: Denies headache(s), paresthesias or weakness Psychiatric Psychiatric: Denies anxiety or suicidal thoughts EXAM Physical Exam Const Vital Signs: 05/04/24 02:16 05/04/24 02:18 05/04/24 03:30 Temperature 97.5 F L 97.5 F L 97.8 F Temperature Source Oral Oral Oral Pulse Rate 73 73 70 Respiratory Rate 16 16 18 Blood Pressure 148/97 H 148/97 H 136/91 H Blood Pressure Mean 114 114 106 Pulse Ox 99 99 96 Oxygen Delivery Method Room Air Room Air Room Air 05/04/24 04:00 05/04/24 04:08 Temperature 98.1 F 98.1 F Temperature Source Oral Pulse Rate 68 67 Respiratory Rate 18 18 Blood Pressure 127/86 H 127/86 H Blood Pressure Mean 99 99 Pulse Ox 96 97 Oxygen Delivery Method Room Air Positive well nourished and well developed General Appearance ED: well developed and NAD HEENT Reports moist mucous membranes normocephalic and atraumatic Eyes PERRL and EOMs intact bilaterally Neck full ROM and supple Resp normal respiratory effort and clear to auscultation bilaterally Cardio regular rate, regular rhythm and no murmurs GI non-tender and non-distended Auscultation: normoactive bowel sounds Palpation: soft Back/Spine no CVA tenderness General Back: other FROM Extremity normal to inspection General Extremety ED: Negative for edema, pulses abnormal or tenderness General Extremity: Negative for edema or pulses abnormal Neuro oriented x3, CN's II-XII intact bilaterally and no sensory deficits noted Sensorium / Orientation: awake and alert Motor Exam: strength 5/5 throughout Skin no rashes or lesions noted and no wounds MDM MDM MDM Narrative Medical decision making narrative: Patient doing much better after Toradol, Zofran, morphine. Urine shows no sign of infection. There are calcium oxalate crystals present. Given his history of needing procedures to get stone out, obtained a CT to obtain more details about the stone he has now. I reviewed the images and the report which I agree with, there is a mid ureteral stone that is approximately 6 mm in diameter. Several other nephroliths bilaterally also noted which I discussed with him. Flomax not indicated at this time given its position. Patient symptoms are well-controlled here with single dosing of the above medications and he is stable for outpatient expectant management and follow-up as needed, we discussed reasons to return he is comfortable with that plan given prescriptions for analgesics and antiemetics. Lab Data Attestation: I reviewed the patient's lab (more content not included)... Normal [facility] Urinalysis, Completeon 05-04 CA OX CRYSTAL 3+ /hpf Normal [facility] Comment on above: Order Comment: CLEAN CATCH Performed By: #### L 400.0001 #### [facility] [address] [place], [address] EPI,SQUAMOUS 0-5 SEEN Normal 0-5 [facility] Comment on above: Order Comment: CLEAN CATCH Performed By: #### L 400.0001 #### [facility] [address] [place], [address] RBC 10-25 SEEN Normal 0-5 [facility] Comment on above: Order Comment: CLEAN CATCH Performed By: #### L 400.0001 #### [facility] [address] [place], [address] WBC 0-5 SEEN Normal 0-5 [facility] Comment on above: Order Comment: CLEAN CATCH Performed By: #### L 400.0001 #### [facility] [address] [place], [address] BACTERIA 0 SEEN Normal None Seen [facility] Comment on above: Order Comment: CLEAN CATCH Performed By: #### L [id number] #### [facility] [address] [place], [address] Mucus Ql (Urine sed) 0 SEEN Normal [facility] Comment on above: Order Comment: CLEAN CATCH Performed By: #### L [id number] #### [facility] [address] [place], [address] LIPID PANEL, NONFASTINGon Cholesterol [Mass/Vol] 154 mg/dL NINF - 200 mg/dL [facility] Comment on above: <200 mg/dL, Desirabl e 200-239 mg/dL, Borderline high >239 mg/dL, High HDL Cholesterol, Nonfasting 31 mg/dL Low 39 - PINF mg/dL [facility] Comment on above: 40-59 mg/dL, Accepta ble >59 mg/dL, High: Negative risk factor for coronary heart disease <40 mg/dL, Low: Positive risk factor for coronary heart disease Interpretation and review of laboratory results Abnormal [facility] LDL Cholesterol, Nonfasting 103 mg/dL High NINF - 100 mg/dL [facility] Comment on above: <100 mg/dL, Optimal 100-129 mg/dL, Near optimal/above optimal 130-159 mg/dL, Borderline high 160-189 mg/dL, High >189 mg/dL, Very high Secondary prevention optimal LDL Cholesterol levels are recommended to be < 70 mg/dL LDL/HDL Ratio, Nonfasting 3.32 mg/dL High NINF - 2.54 mg/dL [facility] Comment on above: Reference: 1. National Cholesterol Education Program ATP III Guideline At-A-Glance Quick Desk Reference: National Heart, Lung, and Blood [place]. National Institutes of Health. 2001: NIH Publication No. 01-3305. 2. An International Atherosclerosis Society position paper: global recommendations for the management of dyslipidemia: executive summary, Atherosclerosis. 2014: 232(2):410-413. Non HDL Cholesterol, Nonfasting 123 mg/dL NINF - 130 mg/dL [facility] Comment on above: <130 mg/dL, Optimal 130-159 mg/dL, Near optimal/above optimal 160-189 mg/dL, Borderline high 190-219 mg/dL, High >219 mg/dL, Very high Secondary prevention optimal non HDL Cholesterol levels are recommended to be <100 mg/dL Total Chol/HDL Ratio, Nonfasting 4.97 mg/dL NINF - 5.10 mg/dL [facility] Triglycerides, Nonfasting 98 mg/dL NINF - 150 mg/dL [facility] Comment on above: <150 mg/dL, Normal 150-199 mg/dL, Borderline high 200-499 mg/dL, High >499 mg/dL, Very high VLDL Cholesterol, Nonfasting 20 mg/dL NINF - 30 mg/dL [facility] CBC W Auto Differential pane l (Bld)on 01-06-2024 Basophils (Bld) [#/Vol] 0.07 10*3/uL [facility] Basophils/100 WBC (Bld) 0.9 % [facility] Differential cell count method Nom (Bld) Auto [facility] Eosinophils (Bld) [#/Vol] 0.11 10*3/uL [facility] Eosinophils/100 WBC (Bld) 1.4 % [facility] Erythrocyte distribution width (RBC) [Ratio] 12.5 % 11.5 - 15.0 % [facility] Hematocrit (Bld) [Volume fraction] 43.6 % 39.0 - 51.0 % [facility] Hemoglobin (Bld) [Mass/Vol] 14.7 g/dL 13.0 - 17.0 g/dL [facility] Immature granulocytes (Bld) [#/Vol] 0.15 10*3/uL High [facility] Immature granulocytes/100 WBC (Bld) 1.9 % [facility] Interpretation and review of laboratory results Abnormal [facility] Lymphocytes (Bld) [#/Vol] 2.04 10*3/uL [facility] Lymphocytes/100 WBC (Bld) 26.1 % [facility] MCH (RBC) [Entitic mass] 31.6 pg 26.0 - 34.0 pg [facility] MCHC (RBC) [Mass/Vol] 33.7 g/dL 30.5 - 36.0 g/dL [facility] MCV (RBC) [Entitic vol] 93.8 fL 80.0 - 100.0 fL [facility] Monocytes (Bld) [#/Vol] 0.67 10*3/uL [facility] Monocytes/100 WBC (Bld) 8.6 % [facility] Neutrophils (Bld) [#/Vol] 4.79 10*3/uL [facility] Neutrophils/100 WBC (Bld) 61.1 % [facility] Nucleated RBC (Bld) [#/Vol] [facility] Nucleated RBC/100 WBC (Bld) [Ratio] 0.0 % /100 WBC [facility] Platelet mean volume (Bld) [Entitic vol] 9.1 fL 9.0 - 12.7 fL [facility] Platelets (Bld) [#/Vol] 411 10*3/uL High [facility] RBC (Bld) [#/Vol] 4.65 10*6/uL 4.20 - 6.0 0 m/uL [facility] WBC (Bld) [#/Vol] 7.83 10*3/uL [facility] Vital Signs Date Time Vital Sign Value Performing Clinician Faci lity 12-25-2024 07:43-0400 Body mass index (BMI) [Ratio] 24.04 kg/m2 Esperanza GORDON-C Work Phone: [facility] 12-25-2024 07:43-0400 Body temperature 96.4 [degF] Esperanza GORDON-C Work Phone: [facility] 12-25-2024 07:43-0400 Body weight 78.93 kg Esperanza GORDON-C Work Phone: [facility] 12-25-2024 07:43-0400 Diastolic blood pressure 86 mm[Hg] Esperanza GORDON-C Work Phone: [facility] 12-25-2024 07:43-0400 Heart rate 70 /min Esperanza GORDON-C Work Phone: [facility] 12-25-2024 07:43-0400 Respiratory rate 12 /min Esperanza GORDON-C Work Phone: [facility] 12-25-2024 07:43-0400 SaO2% (BldA) [Mass fraction] 98 % Esperanza GORDON-C Work Phone: [facility] 12-25-2024 07:43-0400 Systolic blood pressure 120 mm[Hg] Esperanza GORDON-C Work Phone: [facility] 12-05-2024 07:18-0400 Body mass index (BMI) [Ratio] 24.04 kg/m2 Esperanza GORDON-C Work Phone: [facility] 12-05-2024 07:18-0400 Body temperature 97 [degF] Esperanza Perez PA-C Work Phone: [facility] 12-05-2024 07:18-0400 Body weight 78.93 kg Esperanza Perez PA-C Work Phone: [facility] 12-05-2024 07:18-0400 Diastolic blood pressure 86 mm[Hg] Esperanza Perez PA-C Work Phone: [facility] 12-05-2024 07:18-0400 Heart rate 71 /min Esperanza Perez PA-C Work Phone: [facility] 12-05-2024 07:18-0400 Respiratory rate 16 /min Esperanza Perez PA-C Work Phone: [facility] 12-05-2024 07:18-0400 SaO2% (BldA) [Mass fraction] 98 % Esperanza Perez PA-C Work Phone: [facility] 12-05-2024 07:18-0400 Systolic blood pressure 106 mm[Hg] Esperanza Perez PA-C Work Phone: [facility] 11-24-2024 08:32-0400 Body mass index (BMI) [Ratio] 23.76 kg/m2 Gilbert Lemons APRN.QUALITY ASSURANCE ASSISTANT Work Phone: [facility] 11-24-2024 08:32-0400 Body weight 78 kg Gilbert Lemons APRN.QUALITY ASSURANCE ASSISTANT Work Phone: [facility] 11-24-2024 08:32-0400 Diastolic blood pressure 77 mm[Hg] Gilbert Lemons APRN.QUALITY ASSURANCE ASSISTANT Work Phone: [facility] 11-24-2024 08:32-0400 Heart rate 60 /min Gilbert Lemons APRN.QUALITY ASSURANCE ASSISTANT Work Phone: [facility] 11-24-2024 08:32-0400 Systolic blood pressure 113 mm[Hg] Gilbert Lemons APRN.QUALITY ASSURANCE ASSISTANT Work Phone: [facility] 07-23-2024 12:10-0400 Body mass index (BMI) [Ratio] 24.12 kg/m2 Gilbert Lemons APRN.QUALITY ASSURANCE ASSISTANT Work Phone: [facility] 07-23-2024 12:10-0400 Body temperature 96.91 [degF] Gilbert Lemons APRN.QUALITY ASSURANCE ASSISTANT Work Phone: [facility] 07-23-2024 12:10-0400 Body weight 79.2 kg Gilbert Lemons APRN.QUALITY ASSURANCE ASSISTANT Work Phone: [facility] 07-23-2024 12:10-0400 Diastolic blood pressure 80 mm[Hg] Gilbert Lemons APRN.QUALITY ASSURANCE ASSISTANT Work Phone: [facility] 07-23-2024 12:10-0400 Heart rate 74 /min Gilbert Lemons APRN.QUALITY ASSURANCE ASSISTANT Work Phone: [facility] 07-23-2024 12:10-0400 Respiratory rate 16 /min Gilbert Lemons APRN.QUALITY ASSURANCE ASSISTANT Work Phone: [facility] 07-23-2024 12:10-0400 SaO2% (BldA) [Mass fraction] 97 % Gilbert Lemons APRN.QUALITY ASSURANCE ASSISTANT Work Phone: [facility] 07-23-2024 12:10-0400 Systolic blood pressure 128 mm[Hg] Gilbert Lemons APRN.QUALITY ASSURANCE ASSISTANT Work Phone: [facility] 01-06-2024 12:49-0400 Body height 181.2 cm Esperanza Perez PA-C Work Phone: [facility] 01-06-2024 12:49-0400 Body mass index (BMI) [Ratio] 23.39 kg/m2 Esperanza GORDON-C Work Phone: [facility] 01-06-2024 12:49-0400 Body temperature 97.3 [degF] Esperanza GORDON-C Work Phone: [facility] 01-06-2024 12:49-0400 Body weight 76.8 kg Esperanza GORDON-C Work Phone: [facility] 01-06-2024 12:49-0400 Diastolic blood pressure 78 mm[Hg] Esperanza Perez PA-C Work Phone: [facility] 01-06-2024 12:49-0400 Heart rate 70 /min Esperanza Perez PA-C Work Phone: [facility] 01-06-2024 12:49-0400 Respiratory rate 16 /min Esperanza Perez PA-C Work Phone: [facility] 01-06-2024 12:49-0400 SaO2% (BldA) [Mass fraction] 98 % Esperanza Perez PA-C Work Phone: [facility] 01-06-2024 12:49-0400 Systolic blood pressure 116 mm[Hg] Esperanza Perez PA-C Work Phone: [facility] 12-31-2023 13:15-0400 Body mass index (BMI) [Ratio] 23.33 kg/m2 Esperanza Perez PA-C Work Phone: [facility] 12-31-2023 13:15-0400 Body temperature 97.5 [degF] Esperanza Perez PA-C Work Phone: [facility] 12-31-2023 13:15-0400 Body weight 78.02 kg Esperanza Perez PA-C Work Phone: [facility] 12-31-2023 13:15-0400 Diastolic blood pressure 72 mm[Hg] Esperanza Perez PA-C Work Phone: [facility] 12-31-2023 13:15-0400 Heart rate 83 /min Esperanza Perez PA-C Work Phone: [facility] 12-31-2023 13:15-0400 Respiratory rate 18 /min Esperanza Perez PA-C Work Phone: [facility] 12-31-2023 13:15-0400 SaO2% (BldA) [Mass fraction] 96 % Esperanza Perez PA-C Work Phone: [facility] 12-31-2023 13:15-0400 Systolic blood pressure 96 mm[Hg] Esperanza Perez PA-C Work Phone: [facility] 10-05-2023 19:22-0400 Body mass index (BMI) [Ratio] 23.89 kg/m2 Bessie Velasco REGISTERED REPRESENTATIVE.QUALITY ASSURANCE ASSISTANT Work Phone: [facility] 10-05-2023 19:22-0400 Body temperature 96.91 [degF] Bessie Velasco REGISTERED REPRESENTATIVE.QUALITY ASSURANCE ASSISTANT Work Phone: [facility] 10-05-2023 19:22-0400 Body weight 79.9 kg Bessie Velasco REGISTERED REPRESENTATIVE.QUALITY ASSURANCE ASSISTANT Work Phone: [facility] 10-05-2023 19:22-0400 Diastolic blood pressure 66 mm[Hg] Bessie Velasco REGISTERED REPRESENTATIVE.QUALITY ASSURANCE ASSISTANT Work Phone: [facility] 10-05-2023 19:22-0400 Heart rate 74 /min Bessie Velasco REGISTERED REPRESENTATIVE.QUALITY ASSURANCE ASSISTANT Work Phone: [facility] 10-05-2023 19:22-0400 Respiratory rate 16 /min Bessie Velasco REGISTERED REPRESENTATIVE.QUALITY ASSURANCE ASSISTANT Work Phone: [facility] 10-05-2023 19:22-0400 SaO2% (BldA) [Mass fraction] 97 % Bessie Velasco REGISTERED REPRESENTATIVE.QUALITY ASSURANCE ASSISTANT Work Phone: [facility] 10-05-2023 19:22-0400 Systolic blood pressure 102 mm[Hg] Bessie Velasco REGISTERED REPRESENTATIVE.QUALITY ASSURANCE ASSISTANT Work Phone: [facility] 02-09-2022 08:41-0400 Body height 182.9 cm Michelle Cerna MD Work Phone: [facility] 02-09-2022 08:41-0400 Body temperature 97.3 [degF] Michelle Cerna MD Work Phone: [facility] 02-09-2022 08:41-0400 Body weight 79.83 kg Michelle Cerna MD Work Phone: [facility] 02-09-2022 08:41-0400 Diastolic blood pressure 82 mm[Hg] Michelle Cerna MD Work Phone: [facility] 02-09-2022 08:41-0400 Heart rate 74 /min Michelle Cerna MD Work Phone: [facility] 02-09-2022 08:41-0400 SaO2% (BldA) [Mass fraction] 100 % Michelle Cerna MD Work Phone: [facility] 02-09-2022 08:41-0400 Systolic blood pressure 108 mm[Hg] Michelle Cerna MD Work Phone: [facility] 09-19-2021 11:14-0400 Body height 182.9 cm Neur [facility] 09-19-2021 11:14-0400 Body weight 77.11 kg Neur [facility] 09-19-2021 11:14-0400 Diastolic blood pressure 90 mm[Hg] Neur [facility] 09-19-2021 11:14-0400 Heart rate 72 /min Neur [facility] 09-19-2021 11:14-0400 Respiratory rate 18 /min Neur [facility] 09-19-2021 11:14-0400 SaO2% (BldA) [Mass fraction] 98 % Neur [facility] 09-19-2021 11:14-0400 Systolic blood pressure 128 mm[Hg] Neur [facility] Encounters Encounter Date Encounter Type Care Provider Facility Start: 03-07-2025 ambulatory [facility] lity:[facility] Start: 02-28-2025 Encounter for other preprocedural examination Dallin Christina [facility] Start: [facility] Start: 12-25-2024 End: 12-25-2024 Office outpatient visit 15 minutes Esperanza Perez PA-C Work Phone: [facility] [place] Comment on above: Lumbar strain, subse quent encounter (Primary Dx); Plantar fasciitis; Personal history of urinary calculi Start: 12-25-2024 End: 12-25-2024 ambulatory ESPERANZA PEREZ Facility:[facility] Start: 12-11-2024 End: 12-11-2024 Follow-up encounter Esperanza Perez PA-C Work Phone: [facility] Start: 12-05-2024 End: 12-05-2024 Subsequent hospital visit by physician Lucien [facility] Work Phone: Radiology Comment on above: Lumbar back pain [M5 4.50] Start: 12-05-2024 End: 12-05-2024 Office outpatient visit 15 minutes Esperanza Perez PA-C Work Phone: [facility] Comment on above: Lumbar back pain (Pr imary Dx); Screening for depression Start: 12-05-2024 End: 12-05-2024 ambulatory ESPERANZA PEREZ Facility:[facility] Start: 11-24-2024 End: 11-24-2024 Patient encounter procedure Gilbert Lemons APRN.QUALITY ASSURANCE ASSISTANT Work Phone: [facility] Comment on above: Keloid scar (Primary Dx) Start: 11-24-2024 End: 11-24-2024 ambulatory GILBERT LEMONS Facility:[facility] Start: 11-10-2024 End: 11-10-2024 Patient encounter procedure [facility] ([facility] Research Comment on above: Examination of parti cipant in clinical trial (Primary Dx) Start: 11-10-2024 Patient encounter procedure JACQUES AVERY [facility] Start: 11-10-2024 End: 12-09-2024 ambulatory Niles Peterson Research Coordinator Research Comment on above: Informed Consent (IR B [id number]) Start: 11-10-2024 End: 11-10-2024 Chart abstracting Micheal Valdes Research Coordinator Work Phone: Research Comment on above: Informed Consent (IR B [id number]) Start: 08-11-2024 End: 08-11-2024 ambulatory JACQUES AVERY Facility:[facility] Start: 08-11-2024 End: 08-11-2024 Telemedicine consultation with patient Rosa Nolen REGISTERED REPRESENTATIVE.QUALITY ASSURANCE ASSISTANT Work Phone: Telemedicine Comment on above: Acute cough (Primary Dx) Start: 07-23-2024 End: 07-23-2024 ambulatory JACQUES AVERY Facility:[facility] Start: 07-23-2024 End: 07-23-2024 Patient encounter procedure Gilbert Lemons APRN.CNP Work Phone: [facility] Comment on above: Bacterial sinusitis (Primary Dx) Start: 07-07-2024 End: 07-07-2024 Telephone encounter Ab Galicia Research Coordinator Neurology Comment on above: Research (IRB [id number] ) Start: 06-30-2024 End: 06-30-2024 Telephone encounter Ab Galicia Research Coordinator Neurology Comment on above: Research (IRB [id number] ) Start: 06-21-2024 End: 06-21-2024 Telephone encounter Ab Galicia Research Coordinator Neurology Comment on above: Research (IRB [id number] ) Start: 06-12-2024 End: 06-12-2024 Telephone encounter Ab Galicia Research Coordinator Neurology Comment on above: Research (IRB [id number] ) Start: 06-07-2024 End: 06-07-2024 Telephone encounter Ab Galicia Research Coordinator Neurology Comment on above: Research (IRB [id number] ) Start: 05-24-2024 End: 05-24-2024 Chart abstracting Jacques Avery MD Work Phone: [facility] Comment on above: Outside Urology Start: 05-04-2024 End: 05-04-2024 Emergency department patient visit [facility] Facility:[facility] Start: 02-14-2024 End: 02-15-2024 ambulatory Esperanza Perez PA-C Work Phone: [facility] Comment on above: Continued Cough Start: 01-30-2024 End: 01-30-2024 ambulatory Wayne Rivera Research Coordinator Neurology Comment on above: Research ([id number]) Start: 01-30-2024 End: 01-30-2024 Patient encounter procedure Kandice Wood PA-C Work Phone: Neurology Comment on above: Examination of parti cipant in clinical trial (Primary Dx) Start: 01-07-2024 End: 01-07-2024 Telephone encounter Esperanza Perez PA-C [facility] Comment on above: Results Start: 01-06-2024 End: 01-06-2024 Patient encounter procedure Esperanza BANEGASC Work Phone: [facility] [place] Comment on above: Well adult exam (Flaquita oral Dx); Elevated hemoglobin A1c; Encounter for lipid screening for cardiovascular disease; Need for hepatitis C screening test Start: 01-06-2024 End: 01-06-2024 Patient encounter status Esperanza BANEGASC Work Phone: [facility] Work Phone: Start: 12-31-2023 End: 12-31-2023 Patient encounter procedure Esperanza GORDON-C Work Phone: [facility] [place] Comment on above: URI, acute (Primary Dx) Start: 11-05-2023 Telephone encounter Florecita najera REGISTERED REPRESENTATIVE.QUALITY ASSURANCE ASSISTANT Work Phone: Neurology Comment on above: Appointment (IRB [id number]) Start: 10-05-2023 End: 10-05-2023 Patient encounter procedure Bessie Velasco REGISTERED REPRESENTATIVE.QUALITY ASSURANCE ASSISTANT Work Phone: [facility] Comment on above: Encounter for immuni zation (Primary Dx); Dog bite, initial encounter Start: 08-10-2023 End: 08-10-2023 ambulatory [facility] Ambulatory Start: 03-04-2023 ambulatory Esperanza martinez PA-C Work Phone: [facility] [place] Comment on above: Renewal Prescription - Sertraline Start: 02-04-2023 Telephone encounter Gracie brooke PA-C Work Phone: Neurology Comment on above: Patient Update (IRB [id number]) Start: 09-18-2022 Chart abstracting David broussard Research Coordinator Neurology Comment on above: Research; Phlebotomy (IRB [id number]) Start: 09-18-2022 End: 09-18-2022 Patient encounter procedure Neur Research Brain Study [place] [facility] Comment on above: Examination of parti cipant in clinical trial (Primary Dx) Start: 09-03-2022 Chart abstracting Carla Brower Research Coordinator Neurology Comment on above: Informed Consent (IR B [id number]) Start: 08-28-2022 Telephone encounter Barbra gold Research Coordinator Neurology Comment on above: Appointment (IRB [id number]) Start: 02-09-2022 End: 02-09-2022 Patient encounter procedure Michelle Cerna MD Work Phone: General Surgery Comment on above: Screening for colon cancer Start: 02-03-2022 Telephone encounter Jacques Avery MD Work Phone: General Surgery Comment on above: Opened In Error Start: 02-02-2022 End: 02-02-2022 ambulatory Esperanzanilton Perez PA-C Work Phone: [facility] [place] Comment on above: Mild intermittent re active airway disease without complication (Primary Dx); Post-COVID chronic cough; Screening for colon cancer Start: 02-02-2022 End: 02-02-2022 Telemedicine consultation with patient Esperanza Perez PA-C Work Phone: [facility] [place] Start: 09-24-2021 Refill Esperanza Dicksonins on PA-C Work Phone: [facility] [place] Comment on above: Refill Request Start: 09-19-2021 Chart abstracting Terry Iraheta Research Coordinator Neurology Comment on above: Informed Consent (IR B [id number]) Start: 09-19-2021 End: 09-19-2021 Patient encounter procedure Neur Research Brain Study [facility] Comment on above: Examination of parti cipant in clinical trial Start: 02-11-2021 Patient encounter status Terry Iraheta Research Coordinator [facility] Work Phone: Procedures Date Procedure Procedure Detail Performing Clinician Start: 12-05-2024 Adult depression screening assessment Esperanza Perez PA-C Work Phone: Start: 01-06-2024 Lipid 1996 panel - S ashia or Plasma Esperanza Perez PA-C Work Phone: Start: 03-20-2022 Colonoscopy Barbra gold Research Coordinator Start: 01-03-2021 Lipid 1996 panel - S ashia or Plasma Gracie Blanton PA-C Work Phone: Start: 11-09-2018 Adult depression screening assessment Terry Iraheta Research Coordinator Plan of Treatment Date Care Activity Detail Author Start: 10-04-2033 Urine microalbumin profile DTaP,Tdap,Td Vaccine (4 - Td or Tdap) [facility] Start: 03-20-2032 Colonoscopy COLONOSCOPY [facility] Start: 03-20-2032 COLORECTAL CANCER SCREENING COLORECTAL CANCER SCREENING [facility] Start: 03-20-2032 Screening for malign ant neoplasm of colon [facility] Start: 01-05-2029 Lipid panel Lipid Screening [facility] Start: 01-05-2027 Diabetes Screening Diabetes Screenin g [facility] Start: 01-03-2026 Lipid 1996 panel - Serum or Plasma Lipid Screening [facility] Start: 01-03-2026 Lipid panel Lipid Screening [facility] Start: 01-03-2026 LIPID SCREEN LIPID SCREEN [facility] Start: 12-05-2025 Depression Screening Depression Scre ening [facility] Start: 01-15-2025 Influenza vaccination Influenza Vacc ine (#1) [facility] Start: 01-05-2025 End: 01-05-2025 Patient encounter procedure 01/05/2025 10:20 AM EDT Office [facility] [place] [address] [place], [place] [id number] Jacques Avery MD [address] [place] [id number] annual physical [facility] [place] Comment on above: annual physical Start: 01-04-2025 End: 01-04-2025 Patient encounter procedure 01/04/2025 8:00 AM EDT Office [facility] [place] [address] [place], [place] [id number] Esperanza Perez PA-C [address] [place], [place] [id number] annual physical [facility] [place] Comment on above: annual physical Start: 11-10-2024 End: 11-10-2024 Patient encounter procedure Neurology Comment on above: #3 Year 4 36 Start: 07-08-2024 End: 10-07-2024 LIPID PANEL, NONFASTING LIPID PANEL, NONFASTING Lab Routine Encounter for lipid screening for cardiovascular disease Expected: 07/08/2024, Expires: 10/07/2024 [facility] Comment on above: Expected: 07/08/2024 , Expires: 10/07/2024 Start: 01-30-2024 End: 01-30-2024 Patient encounter procedure 01/30/2024 1:45 PM EDT Office Visit Neurology [address] [place] [address] [facility] Comment on above: [facility] Start: 01-16-2024 Covid-19 Vaccine () Covid-19 Vaccine () [facility] Start: 01-16-2024 Influenza vaccination Influenza Vacc ine (#1) [facility] Start: 01-06-2024 End: 04-06-2024 Comprehensive metabolic 2000 panel - Serum or Plasma [facility] Comment on above: Expected: 01/06/2024 , Expires: 04/06/2024 Start: 01-06-2024 Depression Screening Depression Scre ening [facility] Comment on above: Postponed from 03/02 (Declined at this time) Start: 01-06-2024 End: 04-06-2024 Hemoglobin A1c in Blood [facility] Work Phone: Comment on above: Expected: 01/06/2024 , Expires: 04/06/2024 Start: 01-06-2024 End: 04-06-2024 Hepatitis C virus Ab [Presence] in Serum [facility] Comment on above: Expected: 01/06/2024 , Expires: 04/06/2024 Start: 01-06-2024 End: 01-06-2024 Patient encounter procedure 01/06/2024 1:00 PM EDT Office Visit [facility] [place] [address] [place] [phone] Esperanza Perez PA-C [address] [place] [phone] physical [facility] [place] Comment on above: physical Start: 01-04-2024 DIABETES SCREEN DIABETES SCREEN [facility] Start: 01-04-2024 Diabetes Screening Diabetes Screenin g [facility] Start: 05-17-2023 Behavioral Health Screening Behavioral Health Screening [facility] Start: 01-15-2023 Covid-19 Vaccine () Covid-19 Vaccine () [facility] Start: 01-15-2023 Influenza vaccination Influenza Vacc ine (#1) [facility] Start: 07-06-2022 Urine microalbumin profile [facility] Start: 05-17-2022 [facility]MENT [facility] Start: 01-15-2022 Influenza vaccination INFLUENZA (#1) [facility] Start: 12-06-2021 SHINGRIX VACCINE (2 of 2) SHINGRIX VACCINE (2 of 2) [facility] Start: 05-17-2021 DEPRESSION ASSESSMENT [facility] Start: 2021 Pneumococcal Vaccine : 50+ (1 of 1 - PCV) Pneumococcal Vaccine: 50+ (1 of 1 - PCV) [facility] Start: 2021 SHINGRIX VACCINE (1 of 2) SHINGRIX VACCINE (1 of 2) [facility] Start: 11-10-2019 Adult depression screening assessment DEPRESSION SCREENING [facility] Start: 2016 COLOGUARD (FIT-DNA) COLOGUARD (FIT-D NA) [facility] Start: 2016 Colonoscopy COLONOSCOPY [facility] Start: 2016 COLORECTAL CANCER SCREENING COLORECTAL CANCER SCREENING [facility] Start: [address] COLONOGRAPHY [facility] Start: 2016 FECAL OCCULT BLOOD FECAL OCCULT BLOO D [facility] Start: 2016 Screening for malign ant neoplasm of colon [facility] Start: 2016 SIGMOIDOSCOPY SIGMOIDOSCOPY [facility] Start: 1989 Depression Screening Depression Scre ening [facility] Start: 1989 HEPATITIS C SCREENING HEPATITIS C [facility] Start: 1989 Hepatitis C screening Hepatitis C [facility] Start: 1989 HIV SCREENING HIV SCREENING [facility] Start: 1989 HIV screening HIV Screening [facility] End: 02-09-2023 Screening colonoscopy COLONOSCOPY SCREENING Endoscopy Routine Screening for colon cancer 1 Occurrences starting 02/09/2022 until 02/09/2023 [facility] Work Phone: Comment on above: 1 Occurrences starti ng 02/09/2022 until 02/09/2023 End: 01-04-2026 XR Lumbar spine 3 Views XR LUMBAR GENERAL 3V AP/LAT/L5-S1 Radiology Routine Lumbar back pain 1 Occurrences starting 12/05/2024 until 01/04/2026 [facility] Work Phone: Comment on above: 1 Occurrences starti ng 12/05/2024 until 01/04/2026 XR Lumbar spine 3 Views XR LUMBA R GENERAL 3V AP/LAT/L5-S1 Radiology Routine Lumbar back pain 12/05/2024 8:18 AM EDT [facility] Immunizations Immunization Date Immunization Notes Care Provider Jesse serna 02-12-2024 influenza virus vaccine, unspecified formulation Gilbert Lemons REGISTERED REPRESENTATIVE.QUALITY ASSURANCE ASSISTANT Work Phone: [facility] 10-05-2023 tetanus toxoid, redu elana diphtheria toxoid, and acellular pertussis vaccine, adsorbed Bessie Velasco REGISTERED REPRESENTATIVE.QUALITY ASSURANCE ASSISTANT Work Phone: [facility] 02-20-2023 influenza virus vaccine, unspecified formulation Esperanza Perez PA-C Work Phone: [facility] 02-12-2022 influenza virus vaccine, unspecified formulation Barbra Melendez Research Coordinator [facility] 02-12-2022 zoster vaccine recombinant Barbra Melendez Research Coordinator [facility] 10-11-2021 COVID-19 original vaccine, age 12+ yr, monovalent (PFIZER-BIONTECH - FLORES TOP) Barbra Melendez Research Coordinator [facility] 10-11-2021 COVID-19 vaccine, ag e 12+ yr (PFIZER-BIONTECH - PURPLE TOP) Esperanza Perez PA-C Work Phone: [facility] 10-11-2021 zoster vaccine recombinant Esperanza Perez PA-C Work Phone: [facility] 03-03-2021 COVID-19 vaccine, ag e 12+ yr (PFIZER-BIONTECH - PURPLE TOP) Terry Iraheta Research Coordinator [facility] 01-18-2021 influenza, injectabl e, quadrivalent, contains preservative Terry Iraheta Research Coordinator [facility] 05-28-2014 hepatitis A vaccine, adult dosage Terry Iraheta Research Coordinator [facility] Work Phone: 05-28-2014 hepatitis B vaccine, adult dosage Terry Iraheta Research Coordinator [facility] Work Phone: 03-07-2014 influenza virus vaccine, unspecified formulation Terry Iraheta Research Coordinator [facility] 10-17-2012 hepatitis B vaccine, adult dosage Terry Iraheta Research Coordinator [facility] Work Phone: 09-16-2012 hepatitis B vaccine, adult dosage Esperanza Perez PA-C Work Phone: [facility] 07-06-2012 hepatitis A vaccine, adult dosage Esperanza Perez PA-C Work Phone: [facility] 07-06-2012 hepatitis A vaccine, unspecified formulation Terry Iraheta [facility] Work Phone: 07-06-2012 hepatitis B vaccine, adult dosage Terry Iraheta [facility] Work Phone: 07-06-2012 measles, mumps and rubella virus vaccine Terry Iraheta [facility] Work Phone: 07-06-2012 poliovirus vaccine, inactivated Terry Iraheta [facility] Work Phone: 07-06-2012 tetanus toxoid, redu elana diphtheria toxoid, and acellular pertussis vaccine, adsorbed Terry Iraheta [facility] Work Phone: 07-06-2012 typhoid vaccine, unspecified formulation Terry Iraheta [facility] Work Phone: 07-06-2012 typhoid capsular polysaccharide vaccine Esperanza Perez PA-C Work Phone: [facility] 03-10-2011 influenza virus vaccine, unspecified formulation Terry Iraheta Research Coordinator [facility] Work Phone: 02-14-2010 influenza virus vaccine, unspecified formulation Terry Iraheta Research Coordinator [facility] 02-09-2009 influenza virus vaccine, unspecified formulation Terry Iraheta Research Coordinator [facility] Work Phone: 03-23-2008 influenza virus vaccine, unspecified formulation Terry Iraheta Research Coordinator [facility] Work Phone: 01-25-2008 tetanus toxoid, redu elana diphtheria toxoid, and acellular pertussis vaccine, adsorbed Terry Iraheta Research Coordinator [facility] Work Phone: Payers Date Payer Category Payer Private Health Insurance [facility] [employer] PL[employer] [id number] 2024 Private Health Insurance [facility] [id number] 2024 Self-pay 2016 Blue Cross Blue Shield [id number] [address] [facility] [id number] 2016-Present [phone] [address] [place] [address] PPO [id number] 2016 Unknown ANTHEM BLUE ACCE SS PPO [id number] 2016-Present [phone] [address] [place] [address] PPO [id number] 2016 Unknown [id number] Unknown [id number] Unknown [id number] Unknown [id number] Social History Date Type Detail Facility Start: 09-23-2017 End: 02-09-2022 Tobacco smoking status NHIS Never smoked tobacco [facility] Start: 02-12-2021 End: 12-25-2024 Alcohol intake Current drinker of alcohol (finding) [facility] Start: 02-11-2021 History SDOH Alcohol Comment once a week [facility] Start: 1970 Sex Assigned At Not on file [facility] Start: 09-09-2021 End: 02-09-2022 Exposure to SARS-CoV-2 (event) Not sure [facility] Start: 09-23-2017 End: 02-09-2022 Tobacco use and exposure Smokeless tobacco non-user [facility] Start: 02-02-2022 History SDOH Alcohol Frequency 4 [facility] Start: 02-02-2022 History SDOH Alcohol Std Drinks 1 [facility] Start: 02-02-2022 History SDOH Physica l Activity MPS 3 [facility] Start: 02-02-2022 History SDOH Stress 2 [facility] Start: 02-02-2022 End: 09-18-2022 History of Social function [facility] Start: 02-02-2022 End: 09-18-2022 Alcohol Use Disorder Identification Test - Consumption [AUDIT-C] [facility] How often to you hav e a drink containing alcohol? 2-3 time sa week [facility] How many standard dr inks containing alcohol do you have on a typical day? 1 or 2 [facility] How often do you hav e 6 or more drinks on 1 occasion? Never [facility] Start: 04-17-2012 Adult Depression Scr eening Assessment 0 [facility] Do you feel stress - tense, restless, nervous, or anxious, or unable to sleep at night because your mind is troubled all the time - these days [OSQ] Only a little [facility] In the past 12 month s, was there a time when you were not able to pay the mortgage or rent on time? No [facility] Do you belong to any clubs or organizations such as voodoo groups, unions, fraternal or athletic groups, or school groups? Yes [facility] Are you now , , , , never or living with a partner? [facility] How often to you hav e a drink containing alcohol? 2-4 times a month [facility] (I/We) worried wheth er (my/our) food would run out before (I/we) got money to buy more. Never true [facility] Functional Status Date Assessment Result Facility 06-25-2014 Are you deaf, or do you have serious difficulty hearing No 06/25/2014 6:49 PM SHELBI OSORIO No [facility] 06-25-2014 Are you blind, or do you have serious difficulty seeing, even when wearing glasses No 06/25/2014 6:49 PM SHELBI OSORIO [facility] 06-25-2014 Do you have serious difficulty walking or climbing stairs No 06/25/2014 6:49 PM SHELBI OSORIO [facility] 06-25-2014 Do you have difficul ty dressing or bathing No 06/25/2014 6:49 PM SHELBI OSORIO [facility] 06-25-2014 Because of a physica l, mental, or emotional condition, do you have difficulty doing errands alone such as visiting a physician's office or shopping No 06/25/2014 6:49 PM SHELBI OSORIO [facility] Mental Status Date Assessment Result Facility 06-25-2014 Because of a physica l, mental, or emotional condition, do you have serious difficulty concentrating, remembering, or making decisions No 06/25/2014 6:49 PM SHELBI OSORIO [facility] Clinical Notes 09-19-2021 to 02-26-2025 Esperanza Perez PA-C - 12/25/2024 7:56 AM EDTTelephone Encounter - Katelyn Yu LPN - 12/11/2024 12:04 PM EDTTelephone Encounter - Katelyn Yu LPN - 12/11/2024 12:04 PM EDT Note Date & Type Note Facility 02-26-2025 Note HNO ID: [id number] Author: MELISSA FISHER MA Service: ? Author Type: Revenue Cycle Specialist Type: Progress Notes Filed: 02/28/2025 08:25 Note Text: Scan on 02/26/2025 11:35 AM by Provider, CRISTIANE Orr: Dr. Mayers Scan on 02/27/2025 7:38 PM by Provider, CRISTIANE Orr: Abdomen [facility] 12-25-2024 Note HNO ID: [id number] Author: ESPERANZA PEREZ PA-C Service: ? Author Type: Physician Sealant Mixer Type: Progress Notes Filed: 12/25/2024 08:15 Note Text: Chief Complaint Patient presents with: Follow Up HPI Matthew Vivar is a 54 year old male who presents here today for recheck. Back Pain: - Persistent back pain, described as "ebbing and flowing." - Saw me on 12/05/2024 for similiar symptoms - Worsened after a recent trip to [place]; unable to sit up in bed without rolling over. - Pain exacerbated after moving a dresser, felt a "pop" in the back. - Initially managed with naproxen and a muscle relaxant, but reports minimal relief. - Alternated naproxen with Tylenol and engaged in stretching exercises, noting improvement. - Pain improved with activity, such as hiking; worsened with prolonged rest. - Able to play pickleball vigorously last night, resulting in mild soreness this morning. - Denies radicular pain or paresthesia in the lower extremities. - Recent x-ray showed mild osteophytes; no significant spinal changes. Nephrolithiasis: - Passed a small stone (1-2 mm) during the trip to [place]. - Uncertain if some pain was related to nephrolithiasis. - History of passing stones 2-4 mm in size, usually asymptomatic. Plantar Fasciitis: - Left foot plantar fasciitis, initially improving but currently pretty sore. Past medical history, appointments, medications, allergies reviewed. Previous Medical History PAST MEDICAL HISTORY[1] Previous Surgical History PAST SURGICAL HISTORY Procedure Laterality Date APPENDECTOMY HX COLONOSCOPY 03/20/2022 repeat in 10 years PAST SURGICAL HISTORY OF 1992 2000 2003 rt. and left knee reconstruction PAST SURGICAL HISTORY OF 05/17/1977 reconstruction of ureters PAST SURGICAL HISTORY OF 05/17/1987 appendix PAST SURGICAL HISTORY OF ~2009,2010, 2018 lithotripsy Family History FAMILY HISTORY[2] Patient Allergies ALLERGIES[3] Current Medications Meds Previous to this Encounter[4] Social History SOCIAL HISTORY[5] Review of Symptoms REVIEW OF SYSTEMS Musculoskeletal: (+) low back pain, (+) morning back stiffness, (+) left foot pain Neurological: (-) radiating leg pain SEE HPI EXAM: BP 120/86 Pulse 70 Temp (!) 35.8 ?C (96.4 ?F) Resp 12 Wt 78.9 kg (174 lb) SpO2 98% BMI 24.04 kg/m? General Appearance: Well appearing, alert, in no acute distress, well-hydrated, well nourished.. Health Maintenance List Pneumococcal Vaccine: 50+(1 of 1 - PCV) Never done Influenza Vaccine(1) due on 01/15/2025 Depression Screening due on 12/05/2025 Diabetes Screening due on 01/05/2027 Lipid Screening due on 01/05/2029 Colorectal Cancer Screening due on 03/20/2032 DTaP,Tdap,Td Vaccine(4 - Td or Tdap) due on 10/04/2033 Hepatitis B Vaccine Completed Hepatitis C Screening Completed Shingrix Vaccine Completed HIV Screening Discontinued Data reviewed RESULT: Counting reference: Lumbosacral junction. For the purposes of this report, L4-5 is considered the level of the iliac crest and assume there are 5 lumbar-type vertebrae. Anatomic variant: None. Vertebral body heights and sagittal alignment are maintained. Disc spaces are preserved with tiny ventral endplate osteophytes at several levels. Sacroiliac joints are intact. Assessment and Plan 1. Lumbar strain, subsequent encounter (S39.819D) - Acute exacerbation following recent travel and physical activity; symptoms improving with movement and stretching. - X-ray showed very mild osteophytes, no significant spinal changes. - No radicular symptoms on exam. - Start medrol pack; discussed potential side effects (increased appetite, insomnia, adrenal effects, hyperglycemia) and rationale for short-term use. - Refer to physical therapy for back and core strengthening; home exercises encouraged. - MRI may be considered if symptoms persist after PT. 2. Plantar fasciitis (M72.2) - Left foot pain worsening; to be addressed concurrently in PT. - Start steroid taper as above. 3. Personal history of urinary calculi (Z87.442) - Recent passage of a small stone (1-2 mm) while in [place]; no acute concerns at this time. Esperanza Perez PA-C Recording using [employer] software for draft documentation of the visit was discussed with the patient/authorized group sales representative; all questions welcomed and answered. Patient/authorized group sales representative agreed to proceed [1] Past Medical History: 12/28/2016: Deviated septum Comment: To the right 01/13/2021: Elevated hemoglobin A1c 10/2012: Reactive airway disease (HCC) Comment: small airway response to bronchodilator on PFT No date: Renal calculi 08/09/2015: Seasonal allergies [2] Review of patient's family history indicates: Problem: Lipids Relation: Mother Age of Onset: (Not Specified) Problem: Hypertension Relation: Father Age of Onset: (Not Specified) Problem: other (Parkinsons Disease (more content not included)... [facility] 12-25-2024 History of Present illness Narrative Chief Complaint Patient presents with: Follow Up HPI Matthew Vivar is a 54 year old male who presents here today for recheck. Back Pain: - Persistent back pain, described as "ebbing and flowing." - Saw me on 12/05/2024 for similiar symptoms - Worsened after a recent trip to [place]; unable to sit up in bed without rolling over. - Pain exacerbated after moving a dresser, felt a "pop" in the back. - Initially managed with naproxen and a muscle relaxant, but reports minimal relief. - Alternated naproxen with Tylenol and engaged in stretching exercises, noting improvement. - Pain improved with activity, such as hiking; worsened with prolonged rest. - Able to play pickleball vigorously last night, resulting in mild soreness this morning. - Denies radicular pain or paresthesia in the lower extremities. - Recent x-ray showed mild osteophytes; no significant spinal changes. Nephrolithiasis: - Passed a small stone (1-2 mm) during the trip to [place]. - Uncertain if some pain was related to nephrolithiasis. - History of passing stones 2-4 mm in size, usually asymptomatic. Plantar Fasciitis: - Left foot plantar fasciitis, initially improving but currently pretty sore. Past medical history, appointments, medications, allergies reviewed. Previous Medical History PAST MEDICAL HISTORY[1] Previous Surgical History PAST SURGICAL HISTORY Procedure Laterality Date APPENDECTOMY HX COLONOSCOPY 03/20/2022 repeat in 10 years PAST SURGICAL HISTORY OF 1992 2000 2003 rt. and left knee reconstruction PAST SURGICAL HISTORY OF 05/17/1977 reconstruction of ureters PAST SURGICAL HISTORY OF 05/17/1987 appendix PAST SURGICAL HISTORY OF ~2009,2010, 2018 lithotripsy Family History FAMILY HISTORY[2] Patient Allergies ALLERGIES[3] Current Medications Meds Previous to this Encounter[4] Social History SOCIAL HISTORY[5] Review of Symptoms REVIEW OF SYSTEMS Musculoskeletal: (+) low back pain, (+) morning back stiffness, (+) left foot pain Neurological: (-) radiating leg pain SEE HPI EXAM: BP 120/86 Pulse 70 Temp (!) 35.8 C (96.4 F) Resp 12 Wt 78.9 kg (174 lb) SpO2 98% BMI 24.04 kg/m General Appearance: Well appearing, alert, in no acute distress, well-hydrated, well nourished.. Health Maintenance List Pneumococcal Vaccine: 50+(1 of 1 - PCV) Never done Influenza Vaccine(1) due on 01/15/2025 Depression Screening due on 12/05/2025 Diabetes Screening due on 01/05/2027 Lipid Screening due on 01/05/2029 Colorectal Cancer Screening due on 03/20/2032 DTaP,Tdap,Td Vaccine(4 - Td or Tdap) due on 10/04/2033 Hepatitis B Vaccine Completed Hepatitis C Screening Completed Shingrix Vaccine Completed HIV Screening Discontinued Data reviewed RESULT: Counting reference: Lumbosacral junction. For the purposes of this report, L4-5 is considered the level of the iliac crest and assume there are 5 lumbar-type vertebrae. Anatomic variant: None. Vertebral body heights and sagittal alignment are maintained. Disc spaces are preserved with tiny ventral endplate osteophytes at several levels. Sacroiliac joints are intact. Assessment and Plan 1. Lumbar strain, subsequent encounter (S39.012D) - Acute exacerbation following recent travel and physical activity; symptoms improving with movement and stretching. - X-ray showed very mild osteophytes, no significant spinal changes. - No radicular symptoms on exam. - Start medrol pack; discussed potential side effects (increased appetite, insomnia, adrenal effects, hyperglycemia) and rationale for short-term use. - Refer to physical therapy for back and core strengthening; home exercises encouraged. - MRI may be considered if symptoms persist after PT. 2. Plantar fasciitis (M72.2) - Left foot pain worsening; to be addressed concurrently in PT. - Start steroid taper as above. 3. Personal history of urinary calculi (Z87.442) - Recent passage of a small stone (1-2 mm) while in [place]; no acute concerns at this time. Esperanza Perez PA-C Recording using [employer] software for draft documentation of the visit was discussed with the patient/authorized group sales representative; all questions welcomed and answered. Patient/authorized group sales representative agreed to proceed [1] Past Medical History: 12/28/2016: Deviated septum Comment: To the right 01/13/2021: Elevated hemoglobin A1c 10/2012: Reactive airway disease (HCC) Comment: small airway response to bronchodilator on PFT No date: Renal calculi 08/09/2015: Seasonal allergies [2] Review of patient's family history indicates: Problem: Lipids Relation: Mother Age of Onset: (Not Specified) Problem: Hypertension Relation: Father Age of Onset: (Not Specified) Problem: other (Parkinsons Disease [Other]) Relation: Father Age of Onset: (Not Specified) Problem: No Known Problems Relation: Sister Age of Onset: (Not Specified) Problem: Cancer Relation: Maternal Grandmother Age of Onset: (Not Specified) Comment: gastric Problem: Ischemic Heart Disease Relation: Maternal Grandfather Age of Onset: (Not Specified) Problem: Colon Cancer Relation: Paternal Grandmother Age of Onset: (Not Specified) Comment: age 70's. spread to liver Problem: Parkinson s Disease Relation: Paternal Grandfather Age of Onset: (Not Specified) Problem: Breast Cancer Relation: Paternal Aunt Age of Onset: (Not Specified) Problem: Diabetes Relation: No Family History Age of Onset: (Not Specified) Problem: Stroke Relation: No Family History Age of Onset: (Not Specified) Problem: Bleeding disorder Relation: No Family History Age of Onset: (Not Specified) [3] Allergies Allergen Reactions Seasonal Allergies Other: See Comments cats trees (July, August and September) molds (July through March) ragweed (December, January and February) [4] Current Outpatient Medications on File Prior to Visit Medication Sig cyclobenzaprine (FLEXERIL) 10 mg tablet Take 1 tablet by mouth three times a day as needed for muscle spasm. naproxen (NAPROSYN) 500 mg tablet Take 1 tablet by mouth two times a day as needed (for pain/inflammation). Take with food. No current facility-administered medications on file prior to visit. [5] Social History Tobacco Use Smoking status: Never Smokeless tobacco: Never Vaping Use Vaping status: Never Used Substance Use Topics Alcohol use: Yes Comment: once a week Drug use: No documented in this encounter [facility] 12-11-2024 Telephone encounter Note Patient notified of results and provider's instructions. Patient verbalizes understanding. Katelyn Yu LPN [facility] 12-11-2024 Miscellaneous Notes Patient notified of results and provider's instructions. Patient verbalizes understanding. Katelyn Yu LPN Let patient know that his xray showed minimal degenerate changes. Continue as we discussed. Esperanza Perez PA-C documented in this encounter [facility] 12-11-2024 Telephone encounter Note Let patient know that his xray showed minimal degenerate changes. Continue as we discussed. Esperanza Perez PA-C [facility] 12-05-2024 History of Present illness Narrative Radiology Service Progress Note PATIENT NAME: Matthew Vivar DATE OF SERVICE: December 05, 2024 TIME: 8:06 AM PATIENT IDENTITY VERIFICATION COMPLETED USING TWO (2) IDENTIFIERS: Name and Date of confirmed by patient verbally. FALL SCREENING: Has the patient had 2 falls in the last year or 1 fall with injury or currently using an Ambulatory Assistive Device (Walker, Cane, Wheelchair, Crutches, etc.)? No PATIENT GENDER DATA: Assigned male at PATIENT RELEVANT IMPLANT DATA REVIEWED: Yes PATIENT PRESENTS WITH AN IMPLANTABLE OR ATTACHED CLINICAL ANALYST: No RADIOLOGY DEPARTMENT: General X-ray: Exam(s) Completed: Spine X-Ray(s): Lumbar AP / LAT / L5-S1 PERIPHERAL IV DATA: Not applicable SIGNED BY: RT Doni(Erika) December 05, 2024 8:06 AM documented in this encounter [facility] 12-05-2024 Note HNO ID: [id number] Author: SHELLY STEPHEN RT (R) Service: ? Author Type: Learning Disabilities Teacher Type: Progress Notes Filed: 12/05/2024 08:17 Note Text: Radiology Service Progress Note PATIENT NAME: Matthew Vivar DATE OF SERVICE: December 05, 2024 TIME: 8:06 AM PATIENT IDENTITY VERIFICATION COMPLETED USING TWO (2) IDENTIFIERS: Name and Date of confirmed by patient verbally. FALL SCREENING: Has the patient had 2 falls in the last year or 1 fall with injury or currently using an Ambulatory Assistive Device (Walker, Cane, Wheelchair, Crutches, etc.)? No PATIENT GENDER DATA: Assigned male at PATIENT RELEVANT IMPLANT DATA REVIEWED: Yes PATIENT PRESENTS WITH AN IMPLANTABLE OR ATTACHED CLINICAL ANALYST: No RADIOLOGY DEPARTMENT: General X-ray: Exam(s) Completed: Spine X-Ray(s): Lumbar AP / LAT / L5-S1 PERIPHERAL IV DATA: Not applicable SIGNED BY: RT Doni(Erika) December 05, 2024 8:06 AM [facility] 12-05-2024 History of Present illness Narrative Chief Complaint Patient presents with: Pain, Back HPI Matthew Vivar is a 54 year old male who presents here today for Above Complaints.. Right Lower Back Pain: - Dull, aching pain in the right lower back x1 week. - Onset after playing softball and pickleball; no known trauma. - Pain is most noticeable at night when lying down and in the morning upon waking. - Aggravated by sitting up from a lying position. - Alleviated somewhat by stretching and yoga. - Pain is persistent but not severe; does not significantly improve with ibuprofen 400 mg or Aleve 440 mg. - Denies radiation of pain, numbness, or tingling in the legs. - No urinary symptoms. - History of cervical disc bulge; concerned about possible lumbar disc involvement. - Upcoming trip to [place] on Wednesday; concerned about managing pain during travel. Past medical history, appointments, medications, allergies reviewed. Previous Medical History PAST MEDICAL HISTORY Diagnosis Date Deviated septum 12/28/2016 To the right Elevated hemoglobin A1c 01/13/2021 Reactive airway disease (HCC) 10/2012 small airway response to bronchodilator on PFT Renal calculi Seasonal allergies 08/09/2015 Previous Surgical History PAST SURGICAL HISTORY Procedure Laterality Date APPENDECTOMY HX COLONOSCOPY 03/20/2022 repeat in 10 years PAST SURGICAL HISTORY OF 1992 2000 2003 rt. and left knee reconstruction PAST SURGICAL HISTORY OF 05/17/1977 reconstruction of ureters PAST SURGICAL HISTORY OF 05/17/1987 appendix PAST SURGICAL HISTORY OF ~2009,2010, 2017 lithotripsy Family History FAMILY HISTORY Problem Relation Age of Onset Lipids Mother Hypertension Father other (Parkinsons Disease [Other]) Father No Known Problems Sister Cancer Maternal Grandmother gastric Ischemic Heart Disease Maternal Grandfather Colon Cancer Paternal Grandmother age 70's. spread to liver Parkinson s Disease Paternal Grandfather Breast Cancer Paternal Aunt Diabetes No Family History Stroke No Family History Bleeding disorder No Family History Patient Allergies ALLERGIES Allergen Reactions Seasonal Allergies Other: See Comments cats trees (July, August and September) molds (July through March) ragweed (December, January and February) Current Medications Current Outpatient Medications on File Prior to Visit Medication Sig albuterol HFA (VENTOLIN HFA) 90 mcg/actuation inhaler Inhale 2 Puffs as instructed every 4 hours as needed for wheezing/shortness of breath. benzonatate (TESSALON PERLE) 100 mg capsule Take 1 capsule by mouth three times a day as needed for cough. No current facility-administered medications on file prior to visit. Social History Social History Tobacco Use Smoking status: Never Smokeless tobacco: Never Vaping Use Vaping status: Never Used Substance Use Topics Alcohol use: Yes Comment: once a week Drug use: No Review of Symptoms REVIEW OF SYSTEMS SEE HPI EXAM: BP 106/86 (BP Site: Right Arm, BP Position: Sitting, BP Cuff Size: Regular Adult) Pulse 71 Temp 36.1 C (97 F) Resp 16 Wt 78.9 kg (174 lb) SpO2 98% BMI 24.04 kg/m GENERAL: NAD, alert and oriented. EXTREMITIES: Normal, no deformities, no skin discoloration, no edema. BACK: Mild tightness noted with flexion and extension, no significant pain elicited. no pain to palp of spine or SI joint. neg SLR. pain of right side muscularture. NEURO: Awake, alert and oriented x3, cranial nerves II-XII grossly intact, normal gait, no involuntary motions. Health Maintenance List Depression Screening Never done Pneumococcal Vaccine: 50+(1 of 1 - PCV) Never done Influenza Vaccine(1) due on 01/15/2025 Diabetes Screening due on 01/05/2027 Lipid Screening due on 01/05/2029 Colorectal Cancer Screening due on 03/20/2032 DTaP,Tdap,Td Vaccine(4 - Td or Tdap) due on 10/04/2033 Hepatitis B Vaccine Completed Hepatitis C Screening Completed Shingrix Vaccine Completed Covid-19 Vaccine Completed HIV Screening Discontinued Data reviewed N/a Assessment and Plan 1. Lumbar back pain (M54.50) - Suspect lumbar strain - Ordered lumbar spine X-ray to evaluate for potential degenerative changes or other structural abnormalities. Patient informed that results may take 3-4 days. - Prescribed Naproxen 500 mg PO BID with food. - Prescribed a muscle relaxant to be taken at bedtime, with the option to take half a tablet during the day if needed. Discussed potential side effects, including drowsiness. - Advised continuation of stretching exercises and yoga to alleviate muscle tension. - Discussed the possibility of initiating structured physical therapy upon return from the upcoming trip to [place] if symptoms persist. 2. Screening for depression (Z13.31) Esperanza Perez PA-C Recording using [employer] software for draft documentation of the visit was discussed with the patient/authorized group sales representative; all questions welcomed and answered. Patient/authorized group sales representative agreed to proceed documented in this encounter [facility] 12-05-2024 Note HNO ID: [id number] Author: ESPERANZA PEREZ PA-C Service: ? Author Type: Physician Sealant Mixer Type: Progress Notes Filed: 12/05/2024 07:51 Note Text: Chief Complaint Patient presents with: Pain, Back HPI Matthew Vivar is a 54 year old male who presents here today for Above Complaints.. Right Lower Back Pain: - Dull, aching pain in the right lower back x1 week. - Onset after playing softball and pickleball; no known trauma. - Pain is most noticeable at night when lying down and in the morning upon waking. - Aggravated by sitting up from a lying position. - Alleviated somewhat by stretching and yoga. - Pain is persistent but not severe; does not significantly improve with ibuprofen 400 mg or Aleve 440 mg. - Denies radiation of pain, numbness, or tingling in the legs. - No urinary symptoms. - History of cervical disc bulge; concerned about possible lumbar disc involvement. - Upcoming trip to [place] on Wednesday; concerned about managing pain during travel. Past medical history, appointments, medications, allergies reviewed. Previous Medical History PAST MEDICAL HISTORY Diagnosis Date Deviated septum 12/28/2016 To the right Elevated hemoglobin A1c 01/13/2021 Reactive airway disease (HCC) 10/2012 small airway response to bronchodilator on PFT Renal calculi Seasonal allergies 08/09/2015 Previous Surgical History PAST SURGICAL HISTORY Procedure Laterality Date APPENDECTOMY HX COLONOSCOPY 03/20/2022 repeat in 10 years PAST SURGICAL HISTORY OF 1992 2000 2003 rt. and left knee reconstruction PAST SURGICAL HISTORY OF 05/17/1977 reconstruction of ureters PAST SURGICAL HISTORY OF 05/17/1987 appendix PAST SURGICAL HISTORY OF ~2009,2011, 2018 lithotripsy Family History FAMILY HISTORY Problem Relation Age of Onset Lipids Mother Hypertension Father other (Parkinsons Disease [Other]) Father No Known Problems Sister Cancer Maternal Grandmother gastric Ischemic Heart Disease Maternal Grandfather Colon Cancer Paternal Grandmother age 70's. spread to liver Parkinson?s Disease Paternal Grandfather Breast Cancer Paternal Aunt Diabetes No Family History Stroke No Family History Bleeding disorder No Family History Patient Allergies ALLERGIES Allergen Reactions Seasonal Allergies Other: See Comments cats trees (July, August and September) molds (July through March) ragweed (December, January and February) Current Medications Current Outpatient Medications on File Prior to Visit Medication Sig albuterol HFA (VENTOLIN HFA) 90 mcg/actuation inhaler Inhale 2 Puffs as instructed every 4 hours as needed for wheezing/shortness of breath. benzonatate (TESSALON PERLE) 100 mg capsule Take 1 capsule by mouth three times a day as needed for cough. No current facility-administered medications on file prior to visit. Social History Social History Tobacco Use Smoking status: Never Smokeless tobacco: Never Vaping Use Vaping status: Never Used Substance Use Topics Alcohol use: Yes Comment: once a week Drug use: No Review of Symptoms REVIEW OF SYSTEMS SEE HPI EXAM: BP 106/86 (BP Site: Right Arm, BP Position: Sitting, BP Cuff Size: Regular Adult) Pulse 71 Temp 36.1 ?C (97 ?F) Resp 16 Wt 78.9 kg (174 lb) SpO2 98% BMI 24.04 kg/m? GENERAL: NAD, alert and oriented. EXTREMITIES: Normal, no deformities, no skin discoloration, no edema. BACK: Mild tightness noted with flexion and extension, no significant pain elicited. no pain to palp of spine or SI joint. neg SLR. pain of right side muscularture. NEURO: Awake, alert and oriented x3, cranial nerves II-XII grossly intact, normal gait, no involuntary motions. Health Maintenance List Depression Screening Never done Pneumococcal Vaccine: 50+(1 of 1 - PCV) Never done Influenza Vaccine(1) due on 01/15/2025 Diabetes Screening due on 01/05/2027 Lipid Screening due on 01/05/2029 Colorectal Cancer Screening due on 03/20/2032 DTaP,Tdap,Td Vaccine(4 - Td or Tdap) due on 10/04/2033 Hepatitis B Vaccine Completed Hepatitis C Screening Completed Shingrix Vaccine Completed Covid-19 Vaccine Completed HIV Screening Discontinued Data reviewed N/a Assessment and Plan 1. Lumbar back pain (M54.50) - Suspect lumbar strain - Ordered lumbar spine X-ray to evaluate for potential degenerative changes or other structural abnormalities. Patient informed that results may take 3-4 days. - Prescribed Naproxen 500 mg PO BID with food. - Prescribed a muscle relaxant to be taken at bedtime, with the option to take half a tablet during the day if needed. Discussed potential side effects, including drowsiness. - Advised continuation of stretching exercises and yoga to alleviate muscle tension. - Discussed the possibility of initiating structured physical therapy upon return from the upcoming trip to [place] if symptoms persist. 2. Screening for depression (Z13. (more content not included)... [facility] 11-24-2024 Note HNO ID: [id number] Author: GILBERT LEMONS APRN.MEENA Service: ? Author Type: Nurse Practitioner Type: Progress Notes Filed: 11/24/2024 08:42 Note Text: Chief Complaint Patient presents with: Derm Problem: Check mole on back HPI Matthew Vivar is a 54 year old male who presents here today for Above Complaints.. Patient presents for concerning area on low left back. Patient reports his said he has a small raised area to his left lower back. Past medical history, appointments, medications, allergies reviewed. Previous Medical History PAST MEDICAL HISTORY Diagnosis Date Deviated septum 12/28/2016 To the right Elevated hemoglobin A1c 01/13/2021 Reactive airway disease 10/2012 small airway response to bronchodilator on PFT Renal calculi Seasonal allergies 08/09/2015 Previous Surgical History PAST SURGICAL HISTORY Procedure Laterality Date APPENDECTOMY HX COLONOSCOPY 03/20/2022 repeat in 10 years PAST SURGICAL HISTORY OF 1992 2000 2003 rt. and left knee reconstruction PAST SURGICAL HISTORY OF 05/17/1977 reconstruction of ureters PAST SURGICAL HISTORY OF 05/17/1987 appendix PAST SURGICAL HISTORY OF ~2009,2010, 2017 lithotripsy Family History FAMILY HISTORY Problem Relation Age of Onset Lipids Mother Hypertension Father other (Parkinsons Disease [Other]) Father No Known Problems Sister Cancer Maternal Grandmother gastric Ischemic Heart Disease Maternal Grandfather Colon Cancer Paternal Grandmother age 70's. spread to liver Parkinson?s Disease Paternal Grandfather Breast Cancer Paternal Aunt Diabetes No Family History Stroke No Family History Bleeding disorder No Family History Patient Allergies ALLERGIES Allergen Reactions Seasonal Allergies Other: See Comments cats trees (July, August and September) molds (July through March) ragweed (December, January and February) Current Medications Current Outpatient Medications on File Prior to Visit Medication Sig albuterol HFA (VENTOLIN HFA) 90 mcg/actuation inhaler Inhale 2 Puffs as instructed every 4 hours as needed for wheezing/shortness of breath. benzonatate (TESSALON PERLE) 100 mg capsule Take 1 capsule by mouth three times a day as needed for cough. No current facility-administered medications on file prior to visit. Social History Social History Tobacco Use Smoking status: Never Smokeless tobacco: Never Vaping Use Vaping status: Never Used Substance Use Topics Alcohol use: Yes Comment: once a week Drug use: No Review of Symptoms REVIEW OF SYSTEMS SEE HPI EXAM: BP 113/77 Pulse 60 Wt 78 kg (171 lb 15.3 oz) BMI 23.76 kg/m? General Appearance: Well appearing, alert, in no acute distress, well-hydrated, well nourished.. Skin: Positives: Keloid: back. Health Maintenance List Depression Screening Never done Pneumococcal Vaccine: 50+(1 of 1 - PCV) Never done Influenza Vaccine(1) due on 01/15/2025 Diabetes Screening due on 01/05/2027 Lipid Screening due on 01/05/2029 Colorectal Cancer Screening due on 03/20/2032 DTaP,Tdap,Td Vaccine(4 - Td or Tdap) due on 10/04/2033 Hepatitis B Vaccine Completed Hepatitis C Screening Completed Shingrix Vaccine Completed Covid-19 Vaccine Completed HIV Screening Discontinued ASSESSMENT/PLAN: 1. Keloid scar - ICD9: 701.4, ICD10: L91.0 -left lower back Gilbert Lemons APRN.[facility] 11-24-2024 History of Present illness Narrative Chief Complaint Patient presents with: Derm Problem: Check mole on back HPI Matthew Vivar is a 54 year old male who presents here today for Above Complaints.. Patient presents for concerning area on low left back. Patient reports his said he has a small raised area to his left lower back. Past medical history, appointments, medications, allergies reviewed. Previous Medical History PAST MEDICAL HISTORY Diagnosis Date Deviated septum 12/28/2016 To the right Elevated hemoglobin A1c 01/13/2021 Reactive airway disease 10/2012 small airway response to bronchodilator on PFT Renal calculi Seasonal allergies 08/09/2015 Previous Surgical History PAST SURGICAL HISTORY Procedure Laterality Date APPENDECTOMY HX COLONOSCOPY 03/20/2022 repeat in 10 years PAST SURGICAL HISTORY OF 1992 2000 2003 rt. and left knee reconstruction PAST SURGICAL HISTORY OF 05/17/1977 reconstruction of ureters PAST SURGICAL HISTORY OF 05/17/1987 appendix PAST SURGICAL HISTORY OF ~2009,2010, 2018 lithotripsy Family History FAMILY HISTORY Problem Relation Age of Onset Lipids Mother Hypertension Father other (Parkinsons Disease [Other]) Father No Known Problems Sister Cancer Maternal Grandmother gastric Ischemic Heart Disease Maternal Grandfather Colon Cancer Paternal Grandmother age 70's. spread to liver Parkinson s Disease Paternal Grandfather Breast Cancer Paternal Aunt Diabetes No Family History Stroke No Family History Bleeding disorder No Family History Patient Allergies ALLERGIES Allergen Reactions Seasonal Allergies Other: See Comments cats trees (July, August and September) molds (July through March) ragweed (December, January and February) Current Medications Current Outpatient Medications on File Prior to Visit Medication Sig albuterol HFA (VENTOLIN HFA) 90 mcg/actuation inhaler Inhale 2 Puffs as instructed every 4 hours as needed for wheezing/shortness of breath. benzonatate (TESSALON PERLE) 100 mg capsule Take 1 capsule by mouth three times a day as needed for cough. No current facility-administered medications on file prior to visit. Social History Social History Tobacco Use Smoking status: Never Smokeless tobacco: Never Vaping Use Vaping status: Never Used Substance Use Topics Alcohol use: Yes Comment: once a week Drug use: No Review of Symptoms REVIEW OF SYSTEMS SEE HPI EXAM: BP 113/77 Pulse 60 Wt 78 kg (171 lb 15.3 oz) BMI 23.76 kg/m General Appearance: Well appearing, alert, in no acute distress, well-hydrated, well nourished.. Skin: Positives: Keloid: back. Health Maintenance List Depression Screening Never done Pneumococcal Vaccine: 50+(1 of 1 - PCV) Never done Influenza Vaccine(1) due on 01/15/2025 Diabetes Screening due on 01/05/2027 Lipid Screening due on 01/05/2029 Colorectal Cancer Screening due on 03/20/2032 DTaP,Tdap,Td Vaccine(4 - Td or Tdap) due on 10/04/2033 Hepatitis B Vaccine Completed Hepatitis C Screening Completed Shingrix Vaccine Completed Covid-19 Vaccine Completed HIV Screening Discontinued ASSESSMENT/PLAN: 1. Keloid scar - ICD9: 701.4, ICD10: L91.0 -left lower back Gilbert Lemons APRN.QUALITY ASSURANCE ASSISTANT documented in this encounter [facility] 11-10-2024 History of Present illness Narrative DATE:November 10, 2024 PT. NAME: Matthew Vivar [facility]#: [id number] IRB #: [id number] A. PROTOCOL: [facility] Brain Study Centrifugal Operator: Carlee De La Cruz MD, , Von Karimi MD, [employer] civil [employer] draftsperson for study related questions: Barbra Francis Subject continues to give consent for participation and for procedures related to study YES. Patient Identification was verified by asking the patient's Name and Date Of : YES Time: 17:30 Blood drawn with vacutainer and labs drawn per protocol. Butterfly removed after blood draw and secured with sterile gauze. Patient tolerated procedure well. Niles Peterson Research Coordinator documented in this encounter [facility] 11-10-2024 Note HNO ID: [id number] Author: NILES PETERSON Research Coordinator Service: ? Author Type: Research Type: Progress Notes Filed: 12/09/2024 18:22 Note Text: DATE:November 10, 2024 PT. NAME: Matthew Vivar [facility]#: [id number] IRB #: [id number]. PROTOCOL: [facility] Brain Study Centrifugal Operator: Carlee De La Cruz MD, , Von Karimi MD, [employer] draftsperson for study related questions: Barbra Francis Subject continues to give consent for participation and for procedures related to study YES. Patient Identification was verified by asking the patient's Name and Date Of : YES Time: 17:30 Blood drawn with vacutainer and labs drawn per protocol. Butterfly removed after blood draw and secured with sterile gauze. Patient tolerated procedure well. Niles Peterson, Research Coordinator [facility] 11-10-2024 Note HNO ID: [id number] Author: SHELBI CRUZ APRN.QUALITY ASSURANCE ASSISTANT Service: ? Author Type: Nurse Practitioner Type: Progress Notes Filed: 11/10/2024 17:44 Note Text: DATE: November 10, 2024 PT. NAME: Matthew Vivar [facility]#: [id number] IRB [id number]. [facility] ([facility]) Centrifugal Operator: Carlee De La Cruz MD, , Von Karimi MD, [employer] Worker: Barbra Francis and Email:[email or web address] Time: 1701 EKG/ECG was performed on patient. Patient tolerated procedure well. BP: 123/84 BP Site: right arm BP Position: sitting Cuff size: regular Pulse: 67 Resp: 18 SPO2: 97 Weight: 173.8lb Height: 6'0 Have you received the Shingles Vaccine? Yes Age of first vaccination? 51 Year first vaccination was administered: 2021 Number of subsequent vaccinations: 1 Result of Physical Exam Body System Eyes: Normal Ears, Nose, Mouth and Throat: Normal Cardiovascular: Normal Respiratory: Normal Musculoskeletal: Normal Integumentary: Normal Handedness: Right hand Results of Mental Status Assessment Mental Assessments Attention: Abnormality Present: No Memory Working Memory: Abnormality Present: No Recent (Episodic) Memory: Abnormality Present: No Remote (Semantic) Memory: Abnormality Present: No Language Spontaneous Speech: Abnormality Present: No Comprehension: Abnormality Present: No Naming: Abnormality Present: No Repetition: Abnormality Present: No Reading: Abnormality Present: No Affect: Abnormality Present: No Craninal Nerve Assessment Visual Anderson: Normal EOM: Normal Nystagmus: Physiologic Pupils: Equal and reactive Ptosis: Absent Trigeminal: Normal CN VII: Normal CN VIII: Normal CN IX: Normal CN X: Normal CN XI: Normal CN XII: Normal Assessment of Motor and Bulk and Tones Motor Assessments Muscle bulk-global: Normal Muscle tone-global: Normal Motor Strength Assessment Shoulder flexion: Right 5 Left 5 Shoulder external rotation: Right 5 Left 5 Shoulder abduction: Right 5 Left 5 Elbow flexion: Right 5 Left 5 Elbow extension: Right 5 Left 5 Wrist flexion: Right 5 Left 5 Wrist extension: Right 5 Left 5 Finger flexion/sales agent casualty insurance: Right 5 Left 5 Flexor pollicis longus: Right 5 Left 5 Abductor pollicis brevis: Right 5 Left 5 Hip flexion: Right 5 Left 5 Hip extension: Right 5 Left 5 Hip abduction: Right 5 Left 5 Hip adduction: Right 5 Left 5 Knee flexion: Right 5 Left 5 Knee extension: Right 5 Left 5 Ankle eversion: Right 5 Left 5 Ankle inversion: Right 5 Left 5 Ankle plantar flexion: Right 5 Left 5 Ankle dorsiflexion: Right 5 Left 5 Extensor halluces longus: Right 5 Left 5 Flexor digitorum longus: Right 5 Left 5 Reflexes - MRC Grading Method Triceps: Right 2 Left 2 Biceps: Right 2 Left 2 Brachioradialis: Right 2 Left 2 Patellar: Right 2+ Left 2+ Achilles: Right 2+ Left 2+ Plantar: Right Downgoing Left Downgoing Weakness?: No Tremor: Yes Type of Tremor: Intention Tremor location: upper extremity Tremor Laterality: Both How long has the tremor been present? 30 year(s) Tremor diagnosis given? No Family history of tremor? Yes Tremor responds to alcohol? No REM sleep behavior disorder? No Change in smell? Yes Constipation? No Tremor Additional Details: Slight postural tremor noted to bilateral hands. Has had tremor for multiple years. Cerebellar/Coordination Assessment [id number]: Abnormality present: No, Igav-ol-Bfmm: Abnormality present: No, Finger Tapping - Abnormality present: No Fist Open/Close - Abnormality present: No Pronation/Supination of the Hand - Abnormality present: No Toe Tapping - Abnormality present: No Heel Tapping - Abnormality present: No Gait Gait-global assessment: Normal Toe Walk: Normal Heel Walk: Normal Tandem Walk: Normal Romberg: Pass Sensory/Sensation Sensory System-globlal assessment: Normal Shelbi Cruz APRN.[facility] 11-10-2024 History of Present illness Narrative DATE: November 10, 2024 PT. NAME: Matthew Vivar [facility]#: [id number] IRB [id number]. [facility] ([facility]) Centrifugal Operator: Carlee De La Cruz MD, , Von Karimi MD, [employer] Worker: Barbra Francis and Email:[email or web address] Time: 1701 EKG/ECG was performed on patient. Patient tolerated procedure well. BP: 123/84 BP Site: right arm BP Position: sitting Cuff size: regular Pulse: 67 Resp: 18 SPO2: 97 Weight: 173.8lb Height: 6'0 Have you received the Shingles Vaccine? Yes Age of first vaccination? 51 Year first vaccination was administered: 2021 Number of subsequent vaccinations: 1 Result of Physical Exam Body System Eyes: Normal Ears, Nose, Mouth and Throat: Normal Cardiovascular: Normal Respiratory: Normal Musculoskeletal: Normal Integumentary: Normal Handedness: Right hand Results of Mental Status Assessment Mental Assessments Attention: Abnormality Present: No Memory Working Memory: Abnormality Present: No Recent (Episodic) Memory: Abnormality Present: No Remote (Semantic) Memory: Abnormality Present: No Language Spontaneous Speech: Abnormality Present: No Comprehension: Abnormality Present: No Naming: Abnormality Present: No Repetition: Abnormality Present: No Reading: Abnormality Present: No Affect: Abnormality Present: No Craninal Nerve Assessment Visual Anderson: Normal EOM: Normal Nystagmus: Physiologic Pupils: Equal and reactive Ptosis: Absent Trigeminal: Normal CN VII: Normal CN VIII: Normal CN IX: Normal CN X: Normal CN XI: Normal CN XII: Normal Assessment of Motor and Bulk and Tones Motor Assessments Muscle bulk-global: Normal Muscle tone-global: Normal Motor Strength Assessment Shoulder flexion: Right 5 Left 5 Shoulder external rotation: Right 5 Left 5 Shoulder abduction: Right 5 Left 5 Elbow flexion: Right 5 Left 5 Elbow extension: Right 5 Left 5 Wrist flexion: Right 5 Left 5 Wrist extension: Right 5 Left 5 Finger flexion/sales agent casualty insurance: Right 5 Left 5 Flexor pollicis longus: Right 5 Left 5 Abductor pollicis brevis: Right 5 Left 5 Hip flexion: Right 5 Left 5 Hip extension: Right 5 Left 5 Hip abduction: Right 5 Left 5 Hip adduction: Right 5 Left 5 Knee flexion: Right 5 Left 5 Knee extension: Right 5 Left 5 Ankle eversion: Right 5 Left 5 Ankle inversion: Right 5 Left 5 Ankle plantar flexion: Right 5 Left 5 Ankle dorsiflexion: Right 5 Left 5 Extensor halluces longus: Right 5 Left 5 Flexor digitorum longus: Right 5 Left 5 Reflexes - MRC Grading Method Triceps: Right 2 Left 2 Biceps: Right 2 Left 2 Brachioradialis: Right 2 Left 2 Patellar: Right 2+ Left 2+ Achilles: Right 2+ Left 2+ Plantar: Right Downgoing Left Downgoing Weakness?: No Tremor: Yes Type of Tremor: Intention Tremor location: upper extremity Tremor Laterality: Both How long has the tremor been present? 30 year(s) Tremor diagnosis given? No Family history of tremor? Yes Tremor responds to alcohol? No REM sleep behavior disorder? No Change in smell? Yes Constipation? No Tremor Additional Details: Slight postural tremor noted to bilateral hands. Has had tremor for multiple years. Cerebellar/Coordination Assessment Jxjnma-[id number]: Abnormality present: No, Fxnw-om-Oncj: Abnormality present: No, Finger Tapping - Abnormality present: No Fist Open/Close - Abnormality present: No Pronation/Supination of the Hand - Abnormality present: No Toe Tapping - Abnormality present: No Heel Tapping - Abnormality present: No Gait Gait-global assessment: Normal Toe Walk: Normal Heel Walk: Normal Tandem Walk: Normal Romberg: Pass Sensory/Sensation Sensory System-globlal assessment: Normal Shelbi Cruz APRN.QUALITY ASSURANCE ASSISTANT documented in this encounter [facility] 11-10-2024 Note HNO ID: [id number] Author: MICHEAL VALDES, Research Coordinator Service: ? Author Type: Research Type: Progress Notes Filed: 11/10/2024 16:17 Note Text: [facility] ([facility]): Biomarkers and Predictors of Neurological Disorders Patient/Research Subject Name: Matthew Buckleyols Research Study IRB #: [id number] [facility] ([facility]): Neurological Disorders Biorepository and Data Registry Verbal Confirmation of Continued Consent Occurred On: November 10, 2024 at 4:00pm. Participant has previously consented on the most updated version of the informed consent, version 3.6, dated 05/17/2023 and IRB approved on 12/25/2023. Participant arrived for study visit today and verbally reconfirmed their understanding and consent to participate in the study. Micheal Valdes, Research Coordinator [facility] 11-10-2024 History of Present illness Narrative [facility] ([facility]): Biomarkers and Predictors of Neurological Disorders Patient/Research Subject Name: Matthew Buckleyols Research Study IRB #: [id number] [facility] ([facility]): Neurological Disorders Biorepository and Data Registry Verbal Confirmation of Continued Consent Occurred On: November 10, 2024 at 4:00pm. Participant has previously consented on the most updated version of the informed consent, version 3.6, dated 05/17/2023 and IRB approved on 12/25/2023. Participant arrived for study visit today and verbally reconfirmed their understanding and consent to participate in the study. Micheal Valdes, Research Coordinator documented in this encounter [facility] 08-11-2024 Instructions Rosa Beth APRN.CNP - 08/11/2024 9:43 AM EDT All Natural DIY Pineapple Cough Syrup Ingredients: -2 thick slices of pineapple, peel removed, but core intact (about 2 cps) - 1 tbsp honey - 1/2 tsp cayenne pepper (omit or reduce for children) - a thumb sized piece of fran (omit or reduce for children), peeled, sliced or rough chopped - juice of 1 lemon Instructions: Give the pineapple a rough chop, including core, which is not only edible but very healthy Blend everything up in a senior technical specialist or specialty foods cook until smooth Use a mesh strainer to get a smoother syrup if desired. Can use straight from senior technical specialist. Keep refrigerated and take when needed as often as needed. Can mix in tea or water. Note: DO NOT give anything w/ honey to children un delvis 1 yr old. If you have a persistent cough, seek medical attention. Recipe slightly adapted from [email or web address] documented in this encounter [facility] 08-11-2024 Note HNO ID: [id number] Author: ROSA BETH APRN.CNP Service: ? Author Type: Nurse Practitioner Type: Progress Notes Filed: 08/11/2024 09:45 Note Text: August 11, 2024 Matthew Vivar 1970 VIRTUAL VISIT PROGRESS NOTE This is a virtual visit. It required patient-provider interaction for the medical decision making as documented below. Informed verbal consent was obtained from this patient to communicate and provide care using virtual and other telecommunications tools. This patient has been explained the risks related to unauthorized disclosure or interception of personal health information and steps they can take to help protect their information. We have discussed that care provided through video or audio communication cannot replace the need for physical examination or an in person visit for some disorders or urgent problems and patient understands the need to seek urgent care in an Emergency Department as necessary. I have communicated my name and active licensure. The patient's identity and physical location were verified at the time of this visit. Either the patient or their legal group sales representative has been informed of the risks and benefits of -- and alternatives to -- treatment through a remote evaluation and consents to proceed with the evaluation remotely. Platform patient seen on: [employer] Video Visit platform Location of patient: [place] Vivar is a 54 year old male seen for Patient presents with: Cough Cough This is a new problem. Episode onset: 4-5 weeks. The problem occurs constantly. The problem has not changed since onset.The cough is Non-productive. There has been no fever. Pertinent negatives include no chest pain, no chills, no sweats, no weight loss, no ear congestion, no ear pain, no headaches, no rhinorrhea, no sore throat, no myalgias, no shortness of breath, no wheezing and no eye redness. HISTORY REVIEWED (electronic chart updated): PAST MEDICAL HISTORY Diagnosis Date Deviated septum 12/28/2016 To the right Elevated hemoglobin A1c 01/13/2021 Reactive airway disease 10/2012 small airway response to bronchodilator on PFT Renal calculi Seasonal allergies 08/09/2015 PAST SURGICAL HISTORY Procedure Laterality Date APPENDECTOMY HX COLONOSCOPY 03/20/2022 repeat in 10 years PAST SURGICAL HISTORY OF 1992 2000 2003 rt. and left knee reconstruction PAST SURGICAL HISTORY OF 05/17/1977 reconstruction of ureters PAST SURGICAL HISTORY OF 05/17/1987 appendix PAST SURGICAL HISTORY OF ~2009,2011, 2018 lithotripsy FAMILY HISTORY Problem Relation Age of Onset Lipids Mother Hypertension Father other (Parkinsons Disease [Other]) Father No Known Problems Sister Cancer Maternal Grandmother gastric Ischemic Heart Disease Maternal Grandfather Colon Cancer Paternal Grandmother age 70's. spread to liver Parkinson?s Disease Paternal Grandfather Breast Cancer Paternal Aunt Diabetes No Family History Stroke No Family History Bleeding disorder No Family History Social History Tobacco Use Smoking status: Never Smokeless tobacco: Never Vaping Use Vaping status: Never Used Substance Use Topics Alcohol use: Yes Comment: once a week Drug use: No Current Outpatient Medications Medication Sig albuterol HFA (VENTOLIN HFA) 90 mcg/actuation inhaler Inhale 2 Puffs as instructed every 4 hours as needed for wheezing/shortness of breath. benzonatate (TESSALON PERLE) 100 mg capsule Take 1 capsule by mouth three times a day as needed for cough. No current facility-administered medications for this visit. ALLERGIES Allergen Reactions Seasonal Allergies Other: See Comments cats trees (July, August and September) molds (July through March) ragweed (December, January and February) REVIEW OF SYSTEMS: Review of Systems Constitutional: Negative for chills and weight loss. HENT: Negative for ear pain, rhinorrhea and sore throat. Eyes: Negative for redness. Respiratory: Positive for cough. Negative for shortness of breath and wheezing. Cardiovascular: Negative for chest pain. Musculoskeletal: Negative for myalgias. Neurological: Negative for headaches. PHYSICAL EXAMINATION: VIDEO EXAM: (performed via video enabled technology) GENERAL: alert and appropriate, in no distress, well-hydrated, well nourished, and happy, smiling, interactive SKIN: no rash noted HEAD: normocephalic, no abnormality or lesion noted EYES: no injection and visual acuity is grossly normal EARS: hearing grossly normal NOSE: external nose normal without rhinorrhea Frontal sinus tenderness by self palpation;No Maxillary sinus tenderness by self palpation :No Ethmoid sinus tenderness by self palpation: No OROPHARYNX: moist mucus membranes NECK: full ROM, no cervical LNs noted Tender cervical adenopathy by self palpation :No RESPIRATORY: breathing non-labored Respiratory distress :No Coughing noted :No Audible (more content not included)... [facility] 08-11-2024 History of Present illness Narrative Images from the original note were not included. August 11, 2024 Matthew Vivar 1970 VIRTUAL VISIT PROGRESS NOTE This is a virtual visit. It required patient-provider interaction for the medical decision making as documented below. Informed verbal consent was obtained from this patient to communicate and provide care using virtual and other telecommunications tools. This patient has been explained the risks related to unauthorized disclosure or interception of personal health information and steps they can take to help protect their information. We have discussed that care provided through video or audio communication cannot replace the need for physical examination or an in person visit for some disorders or urgent problems and patient understands the need to seek urgent care in an Emergency Department as necessary. I have communicated my name and active licensure. The patient's identity and physical location were verified at the time of this visit. Either the patient or their legal group sales representative has been informed of the risks and benefits of -- and alternatives to -- treatment through a remote evaluation and consents to proceed with the evaluation remotely. Platform patient seen on: [employer] Video Visit platform Location of patient: [place] Vivar is a 54 year old male seen for Patient presents with: Cough Cough This is a new problem. Episode onset: 4-5 weeks. The problem occurs constantly. The problem has not changed since onset.The cough is Non-productive. There has been no fever. Pertinent negatives include no chest pain, no chills, no sweats, no weight loss, no ear congestion, no ear pain, no headaches, no rhinorrhea, no sore throat, no myalgias, no shortness of breath, no wheezing and no eye redness. HISTORY REVIEWED (electronic chart updated): PAST MEDICAL HISTORY Diagnosis Date Deviated septum 12/28/2016 To the right Elevated hemoglobin A1c 01/13/2021 Reactive airway disease 10/2012 small airway response to bronchodilator on PFT Renal calculi Seasonal allergies 08/09/2015 PAST SURGICAL HISTORY Procedure Laterality Date APPENDECTOMY HX COLONOSCOPY 03/20/2022 repeat in 10 years PAST SURGICAL HISTORY OF 1992 2000 2003 rt. and left knee reconstruction PAST SURGICAL HISTORY OF 05/17/1977 reconstruction of ureters PAST SURGICAL HISTORY OF 05/17/1987 appendix PAST SURGICAL HISTORY OF ~2009,2010, 2017 lithotripsy FAMILY HISTORY Problem Relation Age of Onset Lipids Mother Hypertension Father other (Parkinsons Disease [Other]) Father No Known Problems Sister Cancer Maternal Grandmother gastric Ischemic Heart Disease Maternal Grandfather Colon Cancer Paternal Grandmother age 70's. spread to liver Parkinson s Disease Paternal Grandfather Breast Cancer Paternal Aunt Diabetes No Family History Stroke No Family History Bleeding disorder No Family History Social History Tobacco Use Smoking status: Never Smokeless tobacco: Never Vaping Use Vaping status: Never Used Substance Use Topics Alcohol use: Yes Comment: once a week Drug use: No Current Outpatient Medications Medication Sig albuterol HFA (VENTOLIN HFA) 90 mcg/actuation inhaler Inhale 2 Puffs as instructed every 4 hours as needed for wheezing/shortness of breath. benzonatate (TESSALON PERLE) 100 mg capsule Take 1 capsule by mouth three times a day as needed for cough. No current facility-administered medications for this visit. ALLERGIES Allergen Reactions Seasonal Allergies Other: See Comments cats trees (July, August and September) molds (July through March) ragweed (December, January and February) REVIEW OF SYSTEMS: Review of Systems Constitutional: Negative for chills and weight loss. HENT: Negative for ear pain, rhinorrhea and sore throat. Eyes: Negative for redness. Respiratory: Positive for cough. Negative for shortness of breath and wheezing. Cardiovascular: Negative for chest pain. Musculoskeletal: Negative for myalgias. Neurological: Negative for headaches. PHYSICAL EXAMINATION: VIDEO EXAM: (performed via video enabled technology) GENERAL: alert and appropriate, in no distress, well-hydrated, well nourished, and happy, smiling, interactive SKIN: no rash noted HEAD: normocephalic, no abnormality or lesion noted EYES: no injection and visual acuity is grossly normal EARS: hearing grossly normal NOSE: external nose normal without rhinorrhea Frontal sinus tenderness by self palpation;No Maxillary sinus tenderness by self palpation :No Ethmoid sinus tenderness by self palpation: No OROPHARYNX: moist mucus membranes NECK: full ROM, no cervical LNs noted Tender cervical adenopathy by self palpation :No RESPIRATORY: breathing non-labored Respiratory distress :No Coughing noted :No Audible wheezing noted :No CHEST: equal chest rise with normal respiratory effort NEUROLOGIC: no obvious deficit ASSESSMENT: (R05.1) Acute cough (primary encounter diagnosis) PLAN: Encounter Diagnosis ICD-10-CM 1. Acute cough R05.1 albuterol HFA (VENTOLIN HFA) 90 mcg/actuation inhaler benzonatate (TESSALON PERLE) 100 mg capsule Patient states that he often gets this once a year. The patient states that he usually gets albuterol and tessalon and it alleviates the issue. Will refill. Return if symptoms worsen or fail to improve, for recheck with PCP. Patient Instructions All Natural DIY Pineapple Cough Syrup Ingredients: -2 thick slices of pineapple, peel removed, but core intact (about 2 cps) - 1 tbsp honey - 1/2 tsp cayenne pepper (omit or reduce for children) - a thumb sized piece of fran (omit or reduce for children), peeled, sliced or rough chopped - juice of 1 lemon Instructions: Give the pineapple a rough chop, including core, which is not only edible but very healthy Blend everything up in a senior technical specialist or specialty foods cook until smooth Use a mesh strainer to get a smoother syrup if desired. Can use straight from senior technical specialist. Keep refrigerated and take when needed as often as needed. Can mix in tea or water. Note: DO NOT give anything w/ honey to children un delvis 1 yr old. If you have a persistent cough, seek medical attention. Recipe slightly adapted from [employer] Medical Decision Making: Problems: Low: Acute, uncomplicated illness or injury Risk: Moderate: Drug management Medical Decision Making Level: 3 - Low -I have reviewed and updated with the patient: allergies, VS, current medications, Past Medical History,Past Surgical History,Past Family Medical History, Past Social History. - Patient education provided today. - Discussed with patient medications that are indicated and how to use the medications and what the potential side effects are. - Warning signs of worsening condition explained to patient, Red flags discussed - Patient in stable condition after questions answered and patient verbalizes understanding - Report to ED with any worsening symptoms or life-threatening concerns Rsoa Nolen APRN.QUALITY ASSURANCE ASSISTANT documented in this encounter [facility] 07-23-2024 Note HNO ID: [id number] Author: GILBERT LEMONS APRN.QUALITY ASSURANCE ASSISTANT Service: ? Author Type: Nurse Practitioner Type: Progress Notes Filed: 07/23/2024 12:21 Note Text: [facility] Subjective Matthew Vivar is a 54 year old male. Presents for 7 day history of sinus congestion and pressure. Patient presents with: Sinus Problem: sinus pressure, drainage x 1 week 7 day history of sinus pain, pressure and drainage. Reports this am he coughed up a large amount of dark yellow sputum. The history is provided by the patient. Sinus Problem This is a new problem. The current episode started 1 to 4 weeks ago. The problem occurs constantly. The problem has been unchanged. Associated symptoms include congestion and fatigue. Pertinent negatives include no chest pain or coughing. Nothing aggravates the symptoms. The treatment provided no relief. Review of Systems Constitutional: Positive for fatigue. HENT: Positive for congestion, rhinorrhea, sinus pressure and sinus pain. Respiratory: Negative for cough and shortness of breath. Cardiovascular: Negative for chest pain. Objective BP 128/80 Pulse 74 Temp 36.1 ?C (96.9 ?F) Resp 16 Wt 79.2 kg (174 lb 9.7 oz) SpO2 97% BMI 24.12 kg/m? Physical Exam Constitutional: General: He is not in acute distress. Appearance: Normal appearance. He is normal weight. HENT: Head: Normocephalic. Nose: Congestion and rhinorrhea present. Mouth/Throat: Mouth: Mucous membranes are moist. Pharynx: No posterior oropharyngeal erythema. Cardiovascular: Rate and Rhythm: Normal rate and regular rhythm. Pulmonary: Effort: Pulmonary effort is normal. Breath sounds: Normal breath sounds. Musculoskeletal: Cervical back: Neck supple. No tenderness. Neurological: Mental Status: He is alert. ASSESSMENT/PLAN: 1. Bacterial sinusitis - ICD9: 473.9, 041.9, ICD10: J32.9, B96.89 - Will begin treatment with Amoxicillin for 7 days - The patient should also be given OTC decongestants prn, OTC cough and cold meds as needed, warm salt water gargles, throat lozenges and/or OTC throat spray as needed, and nasal saline gtts and suction prn for the first 5-7 days of treatment. - Supportive care with plenty of fluids, rest, and analgesia prn. - Follow up in 3-5 days if symptoms persist or worsen. - AMOXICILLIN 875 MG-POTASSIUM CLAVULANATE 125 MG TABLET Gilbert Lemons, REGISTERED REPRESENTATIVE.QUALITY ASSURANCE ASSISTANT Differential Diagnoses - Bacterial Sinusitis is more likely for the following reason(s): suggested by HANDP - Viral illness is less likely for the following reason(s): HANDP not suggestive Disposition The patient was discharged. [facility] 07-23-2024 History of Present illness Narrative [facility] Subjective Matthew Vivar is a 54 year old male. Presents for 7 day history of sinus congestion and pressure. Patient presents with: Sinus Problem: sinus pressure, drainage x 1 week 7 day history of sinus pain, pressure and drainage. Reports this am he coughed up a large amount of dark yellow sputum. The history is provided by the patient. Sinus Problem This is a new problem. The current episode started 1 to 4 weeks ago. The problem occurs constantly. The problem has been unchanged. Associated symptoms include congestion and fatigue. Pertinent negatives include no chest pain or coughing. Nothing aggravates the symptoms. The treatment provided no relief. Review of Systems Constitutional: Positive for fatigue. HENT: Positive for congestion, rhinorrhea, sinus pressure and sinus pain. Respiratory: Negative for cough and shortness of breath. Cardiovascular: Negative for chest pain. Objective BP 128/80 Pulse 74 Temp 36.1 C (96.9 F) Resp 16 Wt 79.2 kg (174 lb 9.7 oz) SpO2 97% BMI 24.12 kg/m Physical Exam Constitutional: General: He is not in acute distress. Appearance: Normal appearance. He is normal weight. HENT: Head: Normocephalic. Nose: Congestion and rhinorrhea present. Mouth/Throat: Mouth: Mucous membranes are moist. Pharynx: No posterior oropharyngeal erythema. Cardiovascular: Rate and Rhythm: Normal rate and regular rhythm. Pulmonary: Effort: Pulmonary effort is normal. Breath sounds: Normal breath sounds. Musculoskeletal: Cervical back: Neck supple. No tenderness. Neurological: Mental Status: He is alert. ASSESSMENT/PLAN: 1. Bacterial sinusitis - ICD9: 473.9, 041.9, ICD10: J32.9, B96.89 - Will begin treatment with Amoxicillin for 7 days - The patient should also be given OTC decongestants prn, OTC cough and cold meds as needed, warm salt water gargles, throat lozenges and/or OTC throat spray as needed, and nasal saline gtts and suction prn for the first 5-7 days of treatment. - Supportive care with plenty of fluids, rest, and analgesia prn. - Follow up in 3-5 days if symptoms persist or worsen. - AMOXICILLIN 875 MG-POTASSIUM CLAVULANATE 125 MG TABLET Gilbert Lemons APRN.QUALITY ASSURANCE ASSISTANT Differential Diagnoses - Bacterial Sinusitis is more likely for the following reason(s): suggested by H&P - Viral illness is less likely for the following reason(s): H&P not suggestive Disposition The patient was discharged. documented in this encounter [facility] 07-07-2024 Telephone encounter Note IRB [id number]. Multidisciplinary lifestyle Interventions for Neurological Disorders during the Silent Phase (MINDS) Centrifugal Operator: Alo Rodrigez MD , Carlee De La Cruz MD, , Von Karimi MD, [employer] Worker: Ab Galicia Research Coordinator and Email: Left voicemail message to discuss the MINDS Study. Provided phone number, for Matthew Vivar to contact Ab Galicia Research Coordinator, to further discuss the study. Ab Galicia Research Coordinator [facility] 07-07-2024 Miscellaneous Notes IRB [id number]. Multidisciplinary lifestyle Interventions for Neurological Disorders during the Silent Phase (MINDS) Centrifugal Operator: Alo Rodrigez MD , Carlee De La Cruz MD, , Von Karimi MD, [employer] Worker: bA Galicia Research Coordinator and Email: Left voicemail message to discuss the MINDS Study. Provided phone number, for Matthew Vivar to contact Ab Galicia Research Coordinator, to further discuss the study. Ab Galicia Research Coordinator documented in this encounter [facility] 06-30-2024 Telephone encounter Note IRB [id number]. Multidisciplinary lifestyle Interventions for Neurological Disorders during the Silent Phase (MINDS) Centrifugal Operator: Alo Rodrigez MD , Carlee De La Cruz MD, , Von Karimi MD, [employer] Worker: Ab Galicia Research Coordinator and Email: [email or web address] Left voicemail message to discuss the MINDS Study. Provided phone number, for Matthew Vivar to contact Ab Galicia Research Coordinator, to further discuss the study. Ab Galicia Research Coordinator [facility] 06-30-2024 Miscellaneous Notes IRB [id number]. Multidisciplinary lifestyle Interventions for Neurological Disorders during the Silent Phase (MINDS) Centrifugal Operator: Alo Rodrigez MD , Carlee De La Cruz MD, , Von Karimi MD, [employer] Worker: Clarissa Finley Coordinator and Email: [email or web address] Left voicemail message to discuss the MINDS Study. Provided phone number, for Matthew Vivar to contact Ab Galicia Research Coordinator, to further discuss the study. Clarissa Finley documented in this encounter [facility] 06-21-2024 Telephone encounter Note IRB [id number]. Multidisciplinary lifestyle Interventions for Neurological Disorders during the Silent Phase (MINDS) Centrifugal Operator: Alo Rodrigez MD , Carlee De La Cruz MD, , Von Karimi MD, [employer] Worker: Clarissa Finley and Email: [email or web address] Left voicemail message to discuss the MINDS Study. Provided phone number, for Matthew Vivar to contact Ab Galicia Research Junito, to further discuss the study. Clarissa Finley Coordinator [facility] 06-21-2024 Miscellaneous Notes IRB [id number]. Multidisciplinary lifestyle Interventions for Neurological Disorders during the Silent Phase (MINDS) Centrifugal Operator: Alo Rodrigez MD , Carlee De La Cruz MD, , Von Karimi MD, [employer] Worker: Ab Galicia Research Coordinator and Email: [email or web address] Left voicemail message to discuss the MINDS Study. Provided phone number, for Matthew Vivar to contact Ab Galicia Research Coordinator, to further discuss the study. Clarissa Finley documented in this encounter [facility] 06-12-2024 Telephone encounter Note IRB [id number]. Multidisciplinary lifestyle Interventions for Neurological Disorders during the Silent Phase (MINDS) Centrifugal Operator: Alo Rodrigez MD , Carlee De La Cruz MD, , Von Karimi MD, [employer] Worker: Ab Galicia Research Junito and Email: [email or web address] Clarissa Finley called Matthew Vivar to introduce the MINDS Study IRB [id number]. Matthew Vivar expressed interest in the study and requested more information. Clarissa Finley completed the pre-screen questionnaire with Matthew Vivar. At this time, candidate is eligible and agreed to receive the PDF copy of the informed consent for review by email. Clarissa Finley will follow up with Matthew Vivar in a few days to see if they have any questions and may be interested in enrolling. Date of pre-screen: June 12, 2024 Candidate: Matthew Vivar : 1970 Eligibility Criteria Answer Is the participant enrolled in the [facility] (IRB [id number])? (must be yes) Yes Was the participant referred to the MINDS team by a member of the CCBS team because the patient is demonstrating signs of increased risk for transition into a neurological disorder based on Table 1 (attached) of the MINDS study enrollment criteria? (must be yes) Yes Does the participant have the ability to independently provide informed consent? (must be yes) Yes Is the participant willing and able to participate in multidisciplinary lifestyle interventions? (must be yes) Yes This study will require 2 additional visits to [facility] [place] in the next year. Travel expenses are not covered by the study, however parking and the assessments completed for the study are included. Are you willing and able to travel to participate in the study? (must be yes) Yes Does the participant have reliable internet access and the ability to participate in online video streaming? (must be yes) Yes Has the participant engaged in a formal yoga, dietary, music therapy, speech therapy, or any other intervention program that specifically focuses on healthy lifestyle factors to improve brain or cognitive function within the past 4 weeks? (must be no) No Is the participant currently or less than 6 weeks ? (must be no) No Does the participant have significant hearing loss? (must be no) No Is the participant blind? (must be no) No [facility] 06-12-2024 Miscellaneous Notes IRB [id number]. Multidisciplinary lifestyle Interventions for Neurological Disorders during the Silent Phase (MINDS) Centrifugal Operator: Alo Rodrigez MD , Carlee De La Cruz MD, , Von Karimi MD, [employer] Worker: Ab Galicia Research Coordinator and Email: [email or web address] Ab Galicia Research Coordinator called Matthew Vivar to introduce the MINDS Study IRB [id number]. Matthew Vivar expressed interest in the study and requested more information. Clarissa Finley completed the pre-screen questionnaire with Matthew Vivar. At this time, candidate is eligible and agreed to receive the PDF copy of the informed consent for review by email. Clarissa Finley will follow up with Matthew Vivar in a few days to see if they have any questions and may be interested in enrolling. Date of pre-screen: June 12, 2024 Candidate: Matthew Vivar : 1970 Eligibility Criteria Answer Is the participant enrolled in the [facility] (IRB [id number])? (must be yes) Yes Was the participant referred to the MINDS team by a member of the CCBS team because the patient is demonstrating signs of increased risk for transition into a neurological disorder based on Table 1 (attached) of the [facility] study enrollment criteria? (must be yes) Yes Does the participant have the ability to independently provide informed consent? (must be yes) Yes Is the participant willing and able to participate in multidisciplinary lifestyle interventions? (must be yes) Yes This study will require 2 additional visits to [facility] [place] in the next year. Travel expenses are not covered by the study, however parking and the assessments completed for the study are included. Are you willing and able to travel to participate in the study? (must be yes) Yes Does the participant have reliable internet access and the ability to participate in online video streaming? (must be yes) Yes Has the participant engaged in a formal yoga, dietary, music therapy, speech therapy, or any other intervention program that specifically focuses on healthy lifestyle factors to improve brain or cognitive function within the past 4 weeks? (must be no) No Is the participant currently or less than 6 weeks ? (must be no) No Does the participant have significant hearing loss? (must be no) No Is the participant blind? (must be no) No documented in this encounter [facility] 06-07-2024 Telephone encounter Note IRB [id number]. Multidisciplinary lifestyle Interventions for Neurological Disorders during the Silent Phase (MINDS) Centrifugal Operator: Alo Rodrigez MD , Carlee De La Cruz MD, , Von Karimi MD, [employer] Worker: Ab Galicia, Research Coordinator and Email: [email or web address] Left voicemail message to introduce the MINDS Study. Provided phone number, for Matthew Vivar to contact Ab Galicia Research Coordinator, to further discuss the study. Ab Galicia Research Coordinator [facility] 06-07-2024 Miscellaneous Notes IRB [id number]. Multidisciplinary lifestyle Interventions for Neurological Disorders during the Silent Phase (MINDS) Centrifugal Operator: Alo Rodrigez MD , Carlee De La Cruz MD, , Von Karimi MD, [employer] Worker: Ab Galicia Research Coordinator and Email: [email or web address] Left voicemail message to introduce the MINDS Study. Provided phone number, for Matthew Riley Ghazala to contact Ab Galicia Research Coordinator, to further discuss the study. Ab Galicia Research Junito documented in this encounter [facility] 05-24-2024 Note HNO ID: [id number] Author: KATELYN YU LPN Service: ? Author Type: LICENSED NURSE Type: Progress Notes Filed: 05/24/2024 07:13 Note Text: Scan on 05/23/2024 2:45 PM by ProviderKirby PA-C: Consultation - [facility] 05-24-2024 History of Present illness Narrative Scan on 05/23/2024 2:45 PM by ProviderKirby PANimishaC: Consultation - documented in this encounter [facility] 02-15-2024 Telephone encounter Note Please see pt's message. Katelyn Yu LPN [facility] 02-15-2024 Miscellaneous Notes Please see pt's message. Katelyn Yu LPN documented in this encounter [facility] 01-30-2024 History of Present illness Narrative DATE:January 30, 2024 PT. NAME: Matthew Vivar [facility]#: [id number] IRB #: [id number]. PROTOCOL: [facility] Centrifugal Operator: Carlee De La Cruz MD, , Von Karimi MD, [employer] civil [employer] draftsperson for study related questions: Barbra Francis Subject continues to give consent for participation and for procedures related to study YES. Were there changes made to the informed consent since the last visit? yes. If yes, were changes reviewed and explained to subject? yes Was a new copy of the informed consent signed, placed in the chart, placed in the study file and was a copy given to the patient? yes Patient Identification was verified by asking the patient's Name and Date Of : YES Time: 14:10 Blood drawn with vacutainer and labs drawn per protocol. Butterfly removed after blood draw and secured with sterile gauze. Patient tolerated procedure well. Wayne Rivera, Research Coordinator documented in this encounter [facility] 01-30-2024 History of Present illness Narrative DATE: January 30, 2024 PT. NAME: Matthew Buckleyols [facility]#: [id number] IRB #: [id number]. PROTOCOL: [facility] Centrifugal Operator: Carlee De La Cruz MD, , Von Karimi MD, [employer] civil [employer] draftsperson for study related questions: Barbra Francis Is today the participant's first study visit? No Were there changes made to the informed consent since the last visit? Yes If yes, were changes reviewed and explained to subject? Yes Was a new copy of the informed consent signed, placed in the chart, placed in the study file and was a copy given to the patient? Yes Patient Identification was verified by asking the patients Name and Date Of : YES Subject continues to give consent for participation and for procedures related to study YES. Time:1546 EKG/ECG was performed on patient. Patient tolerated procedure well. BP: 117/79 mmHg BP Site: right arm BP Position: sitting Cuff size: regular Pulse: 56 Resp: 16 SPO2: 56 Weight: 166.1 lb Height: 5ft 11in Result of Physical Exam Body System Eyes: Normal Ears, Nose, Mouth and Throat: Normal Cardiovascular: Normal Respiratory: Normal Musculoskeletal: Normal Integumentary: Normal Handedness: Right hand Results of Mental Status Assessment Mental Assessments Attention: Abnormality Present: No Memory Working Memory: Abnormality Present: No Recent (Episodic) Memory: Abnormality Present: No Remote (Semantic) Memory: Abnormality Present: No Language Spontaneous Speech: Abnormality Present: No Comprehension: Abnormality Present: No Naming: Abnormality Present: No Repetition: Abnormality Present: No Reading: Abnormality Present: No Affect: Abnormality Present: No Craninal Nerve Assessment Visual Anderson: Normal EOM: Normal Nystagmus: Physiologic Pupils: Equal and reactive Ptosis: Absent Trigeminal: Normal CN VII: Normal CN VIII: Normal CN IX: Normal CN X: Normal CN XI: Normal CN XII: Normal Assessment of Motor and Bulk and Tones Motor Assessments Muscle bulk-global: Normal Muscle tone-global: Normal Motor Strength Assessment Shoulder flexion: Right 5 Left 5 Shoulder external rotation: Right 5 Left 5 Shoulder abduction: Right 5 Left 5 Shoulder adduction: Right 5 Left 5 Elbow flexion: Right 5 Left 5 Elbow extension: Right 5 Left 5 Wrist flexion: Right 5 Left 5 Wrist extension: Right 5 Left 5 Finger flexion/sales agent casualty insurance: Right 5 Left 5 Flexor pollicis longus: Right 5 Left 5 Abductor pollicis brevis: Right 5 Left 5 Hip flexion: Right 5 Left 5 Hip extension: Right 5 Left 5 Hip abduction: Right 5 Left 5 Hip adduction: Right 5 Left 5 Knee flexion: Right 5 Left 5 Knee extension: Right 5 Left 5 Ankle eversion: Right 5 Left 5 Ankle inversion: Right 5 Left 5 Ankle plantar flexion: Right 5 Left 5 Ankle dorsiflexion: Right 5 Left 5 Extensor halluces longus: Right 5 Left 5 Flexor digitorum longus: Right 5 Left 5 Reflexes - MRC Grading Method Triceps: Right 2+ Left 2+ Biceps: Right 2+ Left 2+ Brachioradialis: Right 2+ Left 2+ Patellar: Right 2+ Left 2+ Achilles: Right 2+ Left 2+ Plantar: Right Downgoing Left Downgoing Weakness?: No Tremor: Yes Type of Tremor: Postural Tremor location: upper extremity Tremor Laterality: Both How long has the tremor been present? 20 year(s) Tremor diagnosis given? No Family history of tremor? No NI CEREBROV TREMOR TREMOR RESPOND TO ALCOHOL: pt unsure about this. REM sleep behavior disorder? No Change in smell? Yes (states he has never been able to smell certain smells since he was a child ex skunk) Constipation? No Tremor Additional Details: small amplitude tremor Cerebellar/Coordination Assessment [id number]: Abnormality present: No, Fwis-dp-Fiya: Abnormality present: No, Finger Tapping - Abnormality present: No Fist Open/Close - Abnormality present: No Pronation/Supination of the Hand - Abnormality present: No Toe Tapping - Abnormality present: No Heel Tapping - Abnormality present: No Gait Gait-global assessment: Normal Toe Walk: Normal Heel Walk: Normal Tandem Walk: Normal Romberg: Negative (pass) Sensory/Sensation Sensory System-globlal assessment: Abnormal Symmetry of Abnormality: Asymmetric Laterality of Asymmetry: Left Location of Abnormality (select all that apply): Sensory Nerve Patient description of abnormal symptoms: Small area of left knee numbness since surgery Kandice Wood PA-C documented in this encounter [facility] 01-07-2024 Telephone encounter Note Left message for pt to call back for results. Please see below and also let pt know that the lab was able to add the lipid panel to the labs he had done yesterday so pt does not need to come back for another lab draw and office will contact him with those results. Katelyn Yu LPN [facility] 01-07-2024 Miscellaneous Notes Left message for pt to call back for results. Please see below and also let pt know that the lab was able to add the lipid panel to the labs he had done yesterday so pt does not need to come back for another lab draw and office will contact him with those results. Katelyn Yu LPN Let patient know that A1c is 5.7% which is borderline elevated but improved compared to last labs. Rest of labs are all wnl. Somehow my cholesterol panel got postponed to feb. I'm not sure how this happened. We will check with lab to see if can be added. Otherwise can return to any [facility] lab to have cholesterol panel drawn. I apologize for this mistake! Esperanza Perez PA-C Addendum: cholesterol labs is okay. HDL is a little low. Can be increased mildly with diet and exercise but otherwise cholesterol is normal. documented in this encounter [facility] 01-07-2024 Telephone encounter Note Let patient know that A1c is 5.7% which is borderline elevated but improved compared to last labs. Rest of labs are all wnl. Somehow my cholesterol panel got postponed to feb. I'm not sure how this happened. We will check with lab to see if can be added. Otherwise can return to any [facility] lab to have cholesterol panel drawn. I apologize for this mistake! Esperanza Perez PA-C Addendum: cholesterol labs is okay. HDL is a little low. Can be increased mildly with diet and exercise but otherwise cholesterol is normal. [facility] 01-06-2024 History of Present illness Narrative Chief Complaint Patient presents with: Physical: Cough & congestion HPI Matthew Vivar is a 53 year old male who presents here today for physical. Patient with hx as below. Was seen last week for cough and congestion and is feeling better. No other concerns. Past medical history, appointments, medications, allergies reviewed. Previous Medical History PAST MEDICAL HISTORY 12/28/2016: Deviated septum Comment: To the right 10/2012: Reactive airway disease Comment: small airway response to bronchodilator on PFT No date: Renal calculi 08/09/2015: Seasonal allergies Previous Surgical History PAST SURGICAL HISTORY No date: APPENDECTOMY HX 03/20/2022: COLONOSCOPY Comment: repeat in 10 years 1992 2000 2003: PAST SURGICAL HISTORY OF Comment: rt. and left knee reconstruction 05/17/1977: PAST SURGICAL HISTORY OF Comment: reconstruction of ureters 05/17/1987: PAST SURGICAL HISTORY OF Comment: appendix ~2009,2010, 2018: PAST SURGICAL HISTORY OF Comment: lithotripsy Family History FAMILY HISTORY Problem Relation Age of Onset Lipids Mother Hypertension Father other (Parkinsons Disease [Other]) Father No Known Problems Sister Cancer Maternal Grandmother gastric Ischemic Heart Disease Maternal Grandfather Colon Cancer Paternal Grandmother age 70's. spread to liver Parkinson s Disease Paternal Grandfather Breast Cancer Paternal Aunt Diabetes No Family History Stroke No Family History Bleeding disorder No Family History Patient Allergies ALLERGIES Allergen Reactions Seasonal Allergies Other: See Comments cats trees (July, August and September) molds (July through March) ragweed (December, January and February) Current Medications No current outpatient medications on file prior to visit. No current facility-administered medications on file prior to visit. Social History Social History Tobacco Use Smoking status: Never Smokeless tobacco: Never Vaping Use Vaping status: Never Used Substance Use Topics Alcohol use: Yes Comment: once a week Drug use: No Review of Symptoms REVIEW OF SYSTEMS GENERAL: No weight loss, malaise or fevers HEENT: No changes in hearing or vision, no nose bleeds or other nasal problems NECK: Negative for lumps, goiter, pain and significant neck swelling RESPIRATORY: Negative for cough, hemoptysis, wheezing, COPD, dyspnea or shortness of breath CARDIOVASCULAR: Negative for chest pain, leg swelling, hypertension, CHF or palpitations GI: Negative for abdominal discomfort, blood in stools or black stools, change in bowel habit, heart burn, nausea, vomiting : No history of dysuria, frequency or incontinence MUSCULOSKELETAL: Negative for joint pain or swelling, back pain or muscle pain SKIN: Negative for lesions, rash, and itching PSYCH: Negative for sleep disturbance, mood disorder and recent psychosocial stressors HEMATOLOGY/LYMPHOLOGY: Negative for prolonged bleeding, bruising easily or swollen nodes ENDOCRINE: Negative for cold or heat intolerance, polyuria, polydipsia and goiter NEURO: No history of headaches, syncope, paralysis, seizures or tremors EXAM: BP 116/78 (BP Site: Left Arm, BP Position: Sitting, BP Cuff Size: Regular Adult) Pulse 70 Temp 36.3 C (97.3 F) Resp 16 Ht 181.2 cm (5' 11.34") Wt 76.8 kg (169 lb 5 oz) SpO2 98% BMI 23.39 kg/m General Appearance: Well appearing, alert, in no acute distress, well-hydrated, well nourished.. Skin: Skin color, texture, turgor normal, no suspicious rashes or lesions. Head: Normocephalic, no masses, lesions, tenderness or abnormalities. Eyes: Anicteric sclera. Pupils are equally round and reactive to light. Extraocular movements are intact. . Ears: External ears normal, canals clear. Nose/Sinuses: Nares normal, septum midline, mucosa normal, no drainage or sinus tenderness. Oropharynx: Lips, mucosa, and tongue normal, teeth and gums normal, oropharynx normal. Neck: Supple, no adenopathy; thyroid symmetric, normal size, no bruits. Lungs: Lungs clear to auscultation. No wheezing, rhonchi, rales.. Heart: RRR without murmur, gallop, or rubs. No ectopy. Abdomen: Normal abdominal exam, Abdomen soft, non-tender. Bowel sounds normal. No masses, organomegaly. Extremities: No deformities, edema, skin discoloration, clubbing or cyanosis. Good capillary refill. . Peripheral Pulses: Normal. Neurologic: Gait normal. Reflexes normal and symmetric. Sensation grossly intact.. Health Maintenance List Depression Screening Never done Hepatitis C Screening Never done HIV Screening Never done Diabetes Screening due on 01/04/2024 Influenza Vaccine(1) due on 01/16/2024 Lipid Screening due on 01/03/2026 Colorectal Cancer Screening due on 03/20/2032 DTaP,Tdap,Td Vaccine(4 - Td or Tdap) due on 10/04/2033 Hepatitis B Vaccine Completed Shingrix Vaccine Completed Covid-19 Vaccine Completed Data reviewed ASSESSMENT/PLAN: 1. Well adult exam - ICD9: V70.0, ICD10: Z00.00 (primary diagnosis) - Counseled on healthy diet and regular exercise - Follow up for annual exam in one year - COMPREHENSIVE METABOLIC PANEL - COMPLETE BLOOD COUNT AND DIFFERENTIAL 2. Elevated hemoglobin A1c - ICD9: 790.29, ICD10: R73.09 - HEMOGLOBIN A1C - COMPLETE BLOOD COUNT AND DIFFERENTIAL 3. Encounter for lipid screening for cardiovascular disease - ICD9: V77.91, V81.2, ICD10: Z13.220, Z13.6 - LIPID PANEL, NONFASTING - COMPLETE BLOOD COUNT AND DIFFERENTIAL 4. Need for hepatitis C screening test - ICD9: V73.89, ICD10: Z11.59 - HEPATITIS C ANTIBODY IA WITH CONFIRMATION Esperanza Perez PA-C documented in this encounter [facility] 12-31-2023 History of Present illness Narrative Chief Complaint Patient presents with: Chest Congestion HPI Matthew Vivar is a 53 year old male who presents here today for Above Complaints.. Patient reports symptoms starting on 12/28/23. 2 home covid tests were both negative. Reports cough and congestion. Low grade fevers No shortness of breath. Cough can be productive at times. No n/v/d. Past medical history, appointments, medications, allergies reviewed. Previous Medical History PAST MEDICAL HISTORY 12/28/2016: Deviated septum Comment: To the right 10/2012: Reactive airway disease Comment: small airway response to bronchodilator on PFT No date: Renal calculi 08/09/2015: Seasonal allergies Previous Surgical History PAST SURGICAL HISTORY No date: APPENDECTOMY HX 03/20/2022: COLONOSCOPY Comment: repeat in 10 years 1992 2000 2003: PAST SURGICAL HISTORY OF Comment: rt. and left knee reconstruction 05/17/1977: PAST SURGICAL HISTORY OF Comment: reconstruction of ureters 05/17/1987: PAST SURGICAL HISTORY OF Comment: appendix ~2009,2010, 2018: PAST SURGICAL HISTORY OF Comment: lithotripsy Family History FAMILY HISTORY Problem Relation Age of Onset Lipids Mother Hypertension Father other (Parkinsons Disease [Other]) Father No Known Problems Sister Cancer Maternal Grandmother gastric Ischemic Heart Disease Maternal Grandfather Colon Cancer Paternal Grandmother age 70's. spread to liver Parkinson s Disease Paternal Grandfather Breast Cancer Paternal Aunt Diabetes No Family History Stroke No Family History Bleeding disorder No Family History Patient Allergies ALLERGIES Allergen Reactions Seasonal Allergies Other: See Comments cats trees (July, August and September) molds (July through March) ragweed (December, January and February) Current Medications Current Outpatient Medications on File Prior to Visit Medication Sig albuterol HFA (VENTOLIN HFA) 90 mcg/actuation inhaler Inhale 2 Puffs as instructed every 4 hours as needed for wheezing/shortness of breath. (Patient not taking: Reported on 10/05/2023) benzonatate (TESSALON PERLE) 100 mg capsule Take 1 capsule by mouth three times daily as needed for cough. (Patient not taking: Reported on 10/05/2023) sertraline (ZOLOFT) 50 mg tablet Take 1/2 tablet daily x6 days then go up to 1 tablet daily. (Patient not taking: Reported on 10/05/2023) fluticasone (FLONASE) 50 mcg/actuation nasal spray Use 2 Sprays in each nostril once daily. Rinse mouth after use. (Patient not taking: Reported on 10/05/2023) No current facility-administered medications on file prior to visit. Social History Social History Tobacco Use Smoking status: Never Smokeless tobacco: Never Vaping Use Vaping Use: Never used Substance Use Topics Alcohol use: Yes Comment: once a week Drug use: No Review of Symptoms REVIEW OF SYSTEMS See hpi EXAM: BP 96/72 (BP Site: Left Arm, BP Position: Sitting, BP Cuff Size: Regular Adult) Pulse 83 Temp 36.4 C (97.5 F) Resp 18 Wt 78 kg (172 lb) SpO2 96% BMI 23.33 kg/m General Appearance: Well appearing, alert, in no acute distress, well-hydrated, well nourished.. Head: Normocephalic, no masses, lesions, tenderness or abnormalities. Eyes: Anicteric sclera. Pupils are equally round and reactive to light. Extraocular movements are intact. . Ears: External ears normal, canals clear. TMs pearly Nose/Sinuses: Nares normal, septum midline, mucosa normal, no drainage or sinus tenderness. Oropharynx: Lips, mucosa, and tongue normal, teeth and gums normal, oropharynx normal. Neck: Supple, no adenopathy; thyroid symmetric, normal size, no bruits. Lungs: Lungs clear to auscultation. No wheezing, rhonchi, rales.. Heart: RRR without murmur, gallop, or rubs. No ectopy. Health Maintenance List Depression Screening Never done Hepatitis C Screening Never done HIV Screening Never done Diabetes Screening due on 01/04/2024 Influenza Vaccine(1) due on 01/16/2024 Lipid Screening due on 01/03/2026 Colorectal Cancer Screening due on 03/20/2032 DTaP,Tdap,Td Vaccine(4 - Td or Tdap) due on 10/04/2033 Hepatitis B Vaccine Completed Shingrix Vaccine Completed Covid-19 Vaccine Completed Data reviewed ASSESSMENT/PLAN: 1. URI, acute - ICD9: 465.9, ICD10: J06.9 Start zpak. Follow up prn. - Symptomatic treatment with prn analgesia - Supportive care with fluids and rest Esperanza Perez PA-C documented in this encounter [facility] 11-05-2023 Telephone encounter Note IRB [id number]. [facility] Study (BS) Centrifugal Operator: Carlee De La Cruz MD, , Urban Beebe, PhD, , Von Karimi MD, Advanced Practice Provider: Florecita Iqbal APRN.CNP and Email: [email or web address] Left voicemail for Matthew Vivar to discuss scheduling for [facility] . Provided phone number for Matthew Vivar to contact Florecita Iqbal APRN.CNP. [place] will try to contact participant another day. Florecita Iqbal APRN.CNP [facility] Work Phone: 11-05-2023 Miscellaneous Notes IRB [id number]. [facility] ([facility]) Centrifugal Operator: Carlee De La Cruz MD, , Urban Beebe, PhD, , Von Karimi MD, Advanced Practice Provider: Florecita Iqbal APRN.CNP and Email: Left voicemail for Matthew Vivar to discuss scheduling for [facility] . Provided phone number for Matthew Vivar to contact Florecita Iqbal APRN.CNP. [place] will try to contact participant another day. Florecita Iqbal APRN.CNP documented in this encounter [facility] 10-05-2023 History of Present illness Narrative This note was created using [employer]. Subjective Matthew Vivar is a 53 year old male. 53 year old male with PMH rhinitis presents for dog bite. Acute onset last night. Endorses a neighbor dog broke through electric fence while He was walking along, and ultimately bit him in left lower leg He endorses that he cleaned area with alcohol Applied topical ATB ointment Presents today related to Everybody has a different opinion on what needs done" Endorses his last tetanus has been greater than 10 years The history is provided by the patient. No timber setter was used. Wound Check This is a new problem. The current episode started yesterday. The problem occurs constantly. The problem has been unchanged. Pertinent negatives include no abdominal pain, anorexia, arthralgias, change in bowel habit, chest pain, chills, congestion, coughing, diaphoresis, fatigue, fever, headaches, joint swelling, myalgias, nausea, neck pain, numbness, rash, sore throat, swollen glands, urinary symptoms, vertigo, visual change, vomiting or weakness. Nothing aggravates the symptoms. Treatments tried: cleaned the wound out. PAST MEDICAL HISTORY Diagnosis Date Deviated septum 12/28/2016 To the right Reactive airway disease 10/2012 small airway response to bronchodilator on PFT Renal calculi Seasonal allergies 08/09/2015 PAST SURGICAL HISTORY Procedure Laterality Date APPENDECTOMY HX COLONOSCOPY 03/20/2022 repeat in 10 years PAST SURGICAL HISTORY OF 1992 2000 2003 rt. and left knee reconstruction PAST SURGICAL HISTORY OF 05/17/1977 reconstruction of ureters PAST SURGICAL HISTORY OF 05/17/1987 appendix PAST SURGICAL HISTORY OF ~2009,2010, 2018 lithotripsy ALLERGIES Seasonal Allergies MEDICATIONS albuterol HFA (VENTOLIN HFA) 90 mcg/actuation inhaler Inhale 2 Puffs as instructed every 4 hours as needed for wheezing/shortness of breath. (Patient not taking: Reported on 10/05/2023) benzonatate (TESSALON PERLE) 100 mg capsule Take 1 capsule by mouth three times daily as needed for cough. (Patient not taking: Reported on 10/05/2023) sertraline (ZOLOFT) 50 mg tablet Take 1/2 tablet daily x6 days then go up to 1 tablet daily. (Patient not taking: Reported on 10/05/2023) fluticasone (FLONASE) 50 mcg/actuation nasal spray Use 2 Sprays in each nostril once daily. Rinse mouth after use. (Patient not taking: Reported on 10/05/2023) FAMILY HISTORY Problem Relation Age of Onset Lipids Mother Hypertension Father other (Parkinsons Disease [Other]) Father No Known Problems Sister Cancer Maternal Grandmother gastric Ischemic Heart Disease Maternal Grandfather Colon Cancer Paternal Grandmother age 70's. spread to liver Parkinson s Disease Paternal Grandfather Breast Cancer Paternal Aunt Diabetes No Family History Stroke No Family History Bleeding disorder No Family History Social History Tobacco Use Smoking status: Never Smokeless tobacco: Never Vaping Use Vaping Use: Never used Substance Use Topics Alcohol use: Yes Comment: once a week Drug use: No Review of Systems Constitutional: Negative for chills, diaphoresis, fatigue and fever. HENT: Negative for congestion and sore throat. Eyes: Negative for pain, discharge and itching. Respiratory: Negative for apnea, cough and chest tightness. Cardiovascular: Negative for chest pain. Gastrointestinal: Negative for abdominal pain, anorexia, change in bowel habit, nausea and vomiting. Musculoskeletal: Negative for arthralgias, joint swelling, myalgias and neck pain. Skin: Positive for wound. Negative for rash. Allergic/Immunologic: Negative for environmental allergies, food allergies and immunocompromised state. Neurological: Negative for vertigo, weakness, numbness and headaches. Hematological: Negative for adenopathy. Does not bruise/bleed easily. Psychiatric/Behavioral: Negative for agitation and behavioral problems. Objective BP 102/66 Pulse 74 Temp 36.1 C (96.9 F) Resp 16 Wt 79.9 kg (176 lb 2.4 oz) SpO2 97% BMI 23.89 kg/m Physical Exam Vitals and nursing note reviewed. Constitutional: General: He is not in acute distress. Appearance: Normal appearance. He is not ill-appearing, toxic-appearing or diaphoretic. HENT: Head: Normocephalic and atraumatic. Right Ear: External ear normal. Left Ear: External ear normal. Nose: Nose normal. No congestion or rhinorrhea. Mouth/Throat: Mouth: Mucous membranes are moist. Pharynx: Oropharynx is clear. No oropharyngeal exudate or posterior oropharyngeal erythema. Eyes: General: Right eye: No discharge. Left eye: No discharge. Extraocular Movements: Extraocular movements intact. Conjunctiva/sclera: Conjunctivae normal. Pupils: Pupils are equal, round, and reactive to light. Cardiovascular: Rate and Rhythm: Normal rate and regular rhythm. Pulses: Normal pulses. Heart sounds: Normal heart sounds. No murmur heard. No friction rub. No gallop. Pulmonary: Effort: Pulmonary effort is normal. No respiratory distress. Breath sounds: Normal breath sounds. No stridor. No wheezing, rhonchi or rales. Chest: Chest wall: No tenderness. Abdominal: General: Abdomen is flat. There is no distension. Palpations: Abdomen is soft. There is no mass. Tenderness: There is no abdominal tenderness. There is no guarding or rebound. Hernia: No hernia is present. Musculoskeletal: General: Tenderness and signs of injury present. No swelling or deformity. Normal range of motion. Cervical back: Normal range of motion and neck supple. No rigidity or tenderness. Right lower leg: No edema. Left lower leg: No edema. Comments: Left lower posterior calf region with PW noted +TTP No abscess No crepitus No active bleeding No red streaking Lymphadenopathy: Cervical: No cervical adenopathy. Skin: General: Skin is warm and dry. Capillary Refill: Capillary refill takes less than 2 seconds. Coloration: Skin is not jaundiced or pale. Findings: No bruising, lesion or rash. Neurological: General: No focal deficit present. Mental Status: He is alert and oriented to person, place, and time. Cranial Nerves: No cranial nerve deficit. Sensory: No sensory deficit. Motor: No weakness. Coordination: Coordination normal. Gait: Gait normal. Deep Tendon Reflexes: Reflexes normal. Psychiatric: Mood and Affect: Mood normal. Behavior: Behavior normal. Thought Content: Thought content normal. Assessment and Plan ASSESSMENT/PLAN: 1. Encounter for immunization - ICD9: V03.89, ICD10: Z23 (primary diagnosis) Unsure of last - TDAP VACCINE, AGE 7+ YR (ADACEL, BOOSTRIX) administered here in clinic VIS provided 2. Dog bite, initial encounter - ICD9: 879.8, E906.0, ICD10: W54.0XXA Occurred by his neighbors dog yesterday , dog up to date on shots Wound looks good No crepitus or drainage Encouraged wound care Topical ATB ointment F/U for wound check in 24 to 48 - TDAP VACCINE, AGE 7+ YR (ADACEL, BOOSTRIX) Bessie Velasco APRN.QUALITY ASSURANCE ASSISTANT documented in this encounter [facility] 02-04-2023 Miscellaneous Notes IRB [id number]. [facility] Brain Study (BS) Centrifugal Operator: Carlee De La Cruz MD, , Urban Beebe, PhD, , Von Karimi MD, Advanced Practice Provider: Gracie Blanton PA-C and Email: [email or web address] Spoke with Matthew Osvaldo Ghazala to inform them about [facility] [id number] findings. After reviewing findings and recommendations, Matthew Vivar declined follow-up with neurologist and had no further questions at this time. Gracie Blanton PA-C informed Matthew Vivar that they could call phone number if they had any other questions. Gracie Blanton PA-C documented in this encounter [facility] 02-04-2023 Miscellaneous Notes IRB [id number]. [facility] ([facility]) Centrifugal Operator: Carlee De La Cruz MD, , Urban Beebe, PhD, , Von Karimi MD, Advanced Practice Provider: Gracie Blanton PA-C and Email: [email or web address] Left voicemail for Matthew Vivar to discuss [facility] 25. Provided phone number for Matthew Buckleyols to contact Gracie Blanton PA-C. [place] will try to contact participant another day. Gracie Blanton PA-C documented in this encounter [facility] 09-18-2022 History of Present illness Narrative DATE:September 18, 2022 PT. NAME: Matthew Vivar [facility]#: [id number] IRB #: [id number] A. PROTOCOL: [facility] Study Centrifugal Operator: Carlee De La Cruz MD, , Urban Beebe, PhD, , Von Karimi MD, [facility] civil engineering draftsperson for study related questions: Barbra Francis Subject continues to give consent for participation and for procedures related to study YES. Were there changes made to the informed consent since the last visit? NO. If yes, were changes reviewed and explained to subject? N/A Was a new copy of the informed consent signed, placed in the chart, placed in the study file and was a copy given to the patient? N/A Patient Identification was verified by asking the patients Name and Date Of : YES Time: 9:05 AM Blood drawn with vacutainer and labs drawn per protocol. Butterfly removed after blood draw and secured with sterile gauze. Patient tolerated procedure well. David Hartley, Research Coordinator documented in this encounter [facility] 09-18-2022 History of Present illness Narrative Result of Physical Exam Body System Eyes: Normal ,Glasses for distance Ears, Nose, Mouth and Throat: Normal Cardiovascular: Normal Respiratory: Normal Gastrointestinal: Normal Genitourinary: Normal Musculoskeletal: Normal Integumentary: Normal Psychiatric: Not examined Handedness: Right hand Results of Mental Status Assessment Mental Assessments Attention: Abnormality Present: No Memory Working Memory: Abnormality Present: No Recent (Episodic) Memory: Abnormality Present: No Remote (Semantic) Memory: Abnormality Present: No Language Spontaneous Speech: Abnormality Present: No Comprehension: Abnormality Present: No Naming: Abnormality Present: No Repetition: Abnormality Present: No Reading: Abnormality Present: No Affect: Abnormality Present: No Craninal Nerve Assessment Visual Anderson: Normal EOM: Normal Nystagmus: Physiologic Pupils: Equal and reactive Ptosis: Absent Trigeminal: Normal CN VII: Normal CN VIII: Normal CN IX: Normal CN X: Normal CN XI: Normal CN XII: Normal Assessment of Motor and Bulk and Tones Motor Assessments Muscle bulk-global: Normal Muscle tone-global: Normal Motor Strength Assessment Shoulder flexion: Right 5 Left 5 Shoulder external rotation: Right 5 Left 5 Shoulder abduction: Right 5 Left 5 Elbow flexion: Right 5 Left 5 Elbow extension: Right 5 Left 5 Wrist flexion: Right 5 Left 5 Wrist extension: Right 5 Left 5 Finger flexion/sales agent casualty insurance: Right 5 Left 5 Flexor pollicis longus: Right 5 Left 5 Abductor pollicis brevis: Right 5 Left 5 Hip flexion: Right 5 Left 5 Hip extension: Right 5 Left 5 Hip abduction: Right 5 Left 5 Hip adduction: Right 5 Left 5 Knee flexion: Right 5 Left 5 Knee extension: Right 5 Left 5 Ankle eversion: Right 5 Left 5 Ankle inversion: Right 5 Left 5 Ankle plantar flexion: Right 5 Left 5 Ankle dorsiflexion: Right 5 Left 5 Extensor halluces longus: Right 5 Left 5 Flexor digitorum longus: Right 5 Left 5 Reflexes - MRC Grading Method Biceps: Right 2+ Left 2+ Triceps: Right 2+ Left 2+ Brachioradialis: Right 2+ Left 1+ Patellar: Right 2+ Left 2+ Achilles: Right 2+ Left 2+ Other: Right 2+ Left 2+ Plantar: Right Downgoing Left Downgoing Weakness?: NO Tremor?: No Type of Tremor: Postural Cerebellar/Coordination Assessment [id number]: Abnormality present: No, Skhf-kt-[id number]: Abnormality present: No, Finger Tapping - Abnormality present: No Fist Open/Close - Abnormality present: No Pronation/Supination of the Hand - Abnormality present: No Toe Tapping - Abnormality present: No Heel Tapping - Abnormality present: No Gait Gait-global assessment: Normal Sensory/Sensation Sensory System-globlal assessment: Abnormal Symmetry of Abnormality: Symmetric Location of Abnormality (select all that apply): Stocking Patient description of abnormal symptoms: Cold temperature not felt at great toes, cold temperature felt at distal ankles Sensory modalities affected (select all that apply): Pain and temperature NEW Medical Hx Renal Calculi Reactive airway disease Deviated septum Surgical Hx Appendectomy Left and right knee reconstruction Reconstruction of ureters Lithotripsy Colonoscopy 53 [place] teeth 16 Medications: Albuterol 90mcg PRN Benzonate 100mg PRN for cough BP: 123/84mmHg BP Site: BP left arm BP Position: Sitting Cuff size: regular Pulse: 70 Resp: 14 SPO2: 98 Weight: 180lb Height: 6' DATE:September 18, 2022 PT. NAME: Matthew Vivar [facility]#: [id number] [employer] iPad 1 IRB #: [id number] A. PROTOCOL: [facility] Study Centrifugal Operator: Carlee De La Cruz MD, , Urban Beebe, PhD, , Von Karimi MD, [facility] civil engineering draftsperson for study related questions: Shara Mcfadden Subject continues to give consent for participation and for procedures related to study YES. Were there changes made to the informed consent since the last visit? NO. If yes, were changes reviewed and explained to subject? N/A Was a new copy of the informed consent signed, placed in the chart, placed in the study file and was a copy given to the patient? N/A Patient Identification was verified by asking the patients Name and Date Of : YES Time:10:12AM EKG/ECG was performed on patient. Patient tolerated procedure well. Jelani Andujar PA-C documented in this encounter [facility] 08-28-2022 Miscellaneous Notes IRB [id number]. [facility] ([facility]) Centrifugal Operator: Carlee De La Cruz MD, , Urban Beebe, PhD, , Von Karimi MD, [employer] Worker: Shara Mcfadden and Email:[email or web address] Spoke with Matthew Vivar to follow up about continued interest and participation in the [facility] ([facility]): Biomarkers and Predictors of Neurological Disorders IRB [id number]. Barbra Melendez, Research Coordinator scheduled Matthew Vivar for study visit on 09/18/22 at 9am. Barbra Melendez Research Coordinator documented in this encounter [facility] 02-09-2022 History of Present illness Narrative HISTORY AND PHYSICAL Matthew Vivar 1970 REFERRING PHYSICIAN: Esperanza Perez PA-C CHIEF COMPLAINT: Consult (colonoscopy) HPI: The patient is a 51 year old male referred for endoscopy. Matthew presents for screening for colon cancer via colonoscopy The patient denies blood in stools, denies abdominal pain, and denies changes in bowel habits. The patient notes no colon cancer in immediate family, a grandparent had colon cancer The patient has not had previous colonoscopy. PAST MEDICAL HISTORY Diagnosis Date Deviated septum 12/28/2016 To the right Reactive airway disease 10/2012 small airway response to bronchodilator on PFT Renal calculi Seasonal allergies 08/09/2015 PAST SURGICAL HISTORY Procedure Laterality Date PAST SURGICAL HISTORY OF 1992 2000 2003 rt. and left knee reconstruction PAST SURGICAL HISTORY OF 05/17/1977 reconstruction of ureters PAST SURGICAL HISTORY OF 05/17/1987 appendix PAST SURGICAL HISTORY OF ~2009,2010, 2018 lithotripsy Current Outpatient Medications Medication Sig albuterol HFA (VENTOLIN HFA) 90 mcg/actuation inhaler Inhale 2 Puffs as instructed every 4 hours as needed for wheezing/shortness of breath. benzonatate (TESSALON PERLE) 100 mg capsule Take 1 capsule by mouth three times daily as needed for cough. sertraline (ZOLOFT) 50 mg tablet Take 1/2 tablet daily x6 days then go up to 1 tablet daily. (Patient taking differently: as needed. Take 1/2 tablet daily x6 days then go up to 1 tablet daily.) fluticasone (FLONASE) 50 mcg/actuation nasal spray Use 2 Sprays in each nostril once daily. Rinse mouth after use. (Patient taking differently: Use 2 Sprays in each nostril as needed. Rinse mouth after use.) sod sulf-pot chloride-mag sulf (SUTAB) 1.479-0.188- 0.225 gram tab Take 12 tablets by mouth as directed for 2 days. Follow instructions that have been given to you by your provider's office. (Part 1, take 12 tablets. Part 2, take 12 tablets). ALLERGIES: Beta-Blockers (Beta-Adrenergic Blocking Agts) and Seasonal Allergies PERSONAL HISTORY: Social History Tobacco Use Smoking status: Never Smokeless tobacco: Never Vaping Use Vaping Use: Never used Substance Use Topics Alcohol use: Yes Comment: once a week Drug use: No FAMILY HISTORY Problem Relation Age of Onset Lipids Mother Hypertension Father other (Parkinsons Disease [Other]) Father No Known Problems Sister Cancer Maternal Grandmother gastric Ischemic Heart Disease Maternal Grandfather Colon Cancer Paternal Grandmother age 70's. spread to liver Parkinson s Disease Paternal Grandfather Breast Cancer Paternal Aunt Diabetes No Family History Stroke No Family History Bleeding disorder No Family History The review of systems data was entered by the nurse and reviewed by ar Nursing Notes: Oral Leyva LPN 02/09/2022 8:43 AM Signed REVIEW OF SYSTEMS: General: The patient denies fatigue, denies weight loss, denies weight gain, denies feeling hot, and denies feelings of cold. Eyes: The patient denies glaucoma, denies eye injury/surgery, wears glasses or contacts. Ear/Nose/Throat: The patient notes allergies, denies hayfever, denies ear infections, and denies bloody noses. Cardiovascular: The patient denies chest pain, denies heart disease, denies high blood pressure,denies cardiac stent, denies prior heart attack, denies irregular heart beat, denies high cholesterol, denies poor circulation, denies heart failure, other cardiac issues, denies claudication, denies cold feet, denies peripheral arterial stent. Respiratory: The patient denies tuberculosis, notes pneumonia, denies frequent cough, denies pulmonary embolism, denies shortness of breath, and denies coughing up blood. Gastrointestinal: The patient denies difficulty swallowing, denies acid reflux, denies ulcers, denies vomiting, denies jaundice/hepatitis, denies gallbladder problems, denies black or tarry stools, denies hemorrhoids, denies bleeding from rectum, denies diverticulitis, denies constipation, denies diarrhea, denies loss of stool control, and denies hernias. Kidney/Bladder: The patient notes kidney stones, denies urine infections, and denies bloody urine. Skin: The patient denies a history of skin cancer, denies bleeding/changing moles, and denies a history of skin rash. Neurologic: The patient denies a history of epilepsy/convulsions, denies headaches, denies head/spinal injuries, and denies stroke/TIA. Psychiatric: The patient denies psychiatric medications, denies depression, and denies voices, denies substance abuse. Endocrine: The patient denies thyroid disorders, denies diabetes, and denies hormonal problems. Hematologic: The patient denies a history of bruising, denies bleeding, and denies anemia, denies blood clots. Infections: The patient denies a history of measles and mumps, denies rheumatic fever, and denies sexually transmitted diseases. Musculoskeletal: The patient denies back pain/injury, denies back problems, denies sciatica, denies knee/foot trouble, denies arthritis, or denies gout. When was patient's last Mammogram screening? N/A Last Colonoscopy: none Oral Leyva LPN PHYSICAL EXAMINATION: General: The patient is 51 year old male, well nourished, well hydrated in no acute distress. The patient is oriented to time, place, and person. VITALS: Blood pressure 108/82, pulse 74, temperature 36.3 C (97.3 F), height 182.9 cm (6'), weight 79.8 kg (176 lb), SpO2 100 %. Body mass index is 23.87 kg/m . Head: Normal cephalic, atraumatic Eyes: pupils are equally round, sclera are clear/anicteric Neck is supple with no tracheal deviation Respiratory: Normal respiratory excursion and pattern. Abdominal exam: benign Extremities: no clubbing, cyanosis or edema. Neuro: non focal Psych: normal mood Assessment IMPRESSION: screening for colon cancer PLAN: I have discussed the above with the patient. I have offered colonoscopy, possible biopsies I have explained the procedure to the patient. I have counseled the patient as to the risks of the procedure, including but not limited to: infection, bleeding, injury to any intrabdominal organs such as liver/spleen, perforation of the GI tract, inability to complete the procedure, complications of anesthesia, etc. - the patient understands. The patient was offered a surgery/procedure at a [facility] facility. The provider and patient have discussed in detail the risk of exposure to and/or potential harm posed by the COVID-19 virus with having a surgery/procedure at this time versus the risk of delaying the surgery/procedure. It is not possible to know either the risk of delaying the surgery or procedure or chance of getting an infection with perfect accuracy, but a joint decision was made between the patient and the provider to proceed at this time with the scheduled surgery/procedure. I have explained to the patient the difference between IV conscious sedation and MAC anesthesia - and I have offered either, according to the patient's wishes. I have explained that with IV conscious sedation there is no anesthesia provider available and therefore there is a limitation of the amount of IV medications that can be given and that the patient may wake up in the middle of the procedure and/or experience pain/discomfort during the procedure. Further discussion was done and the patient was given the opportunity to ask questions and all questions were answered. The patient chooses IV conscious sedation Patient was counseled that if there are changes in his/her medical condition, to let the office know if surgery should proceed. If there are changes in patient's medical condition from time of this encounter to the day of the procedure that preclude anesthesia, patient may have procedure cancelled for patient's safety. The patient wishes to proceed. I have answered all questions to the patient s satisfaction and the patient has no further questions. Diagnoses: (Z12.11) Screening for colon cancer I have confirmed and edited as necessary, the PFSH and ROS obtained by others. Consultation requested by Esperanza Perez for an opinion regarding patient's screening for colon cancer via colonoscopy. My final recommendations will be communicated back to the requesting physician by way of shared Medical record or letter to requesting physician via US mail. Return to Clinic: The patient will be scheduled for colonoscopy at [facility]. Medical Decision Making: Risk: Low: Low risk from testing/treatment Medical Decision Making Level: 2 - Straightforward Michelle Cerna MD documented in this encounter [facility] 02-09-2022 Instructions Michelle Cerna MD - 02/09/2022 8:59 AM EDT Images from the original note were not included. Bowel Preparation Instructions for: SuTab IF YOU DO NOT FOLLOW THESE DIRECTIONS, YOUR COLONOSCOPY WILL BE CANCELLED. Alberto Instructions: Your bowel must be empty so that your doctor can clearly view your colon. Follow all of the instructions in this handout EXACTLY as they are written. Do NOT eat any solid food the ENTIRE day before your colonoscopy. PURCHASE BOWEL PREPARATION AT YOUR LOCAL PHARMACY (t least 2 weeks before your procedure) Designated Operation Agent on the Day of your Exam A responsible person MUST be present with you at Check In prior to your colonoscopy and REMAIN in the endoscopy area until you are discharged. You are NOT ALLOWED to drive, take a taxi or bus, or leave the Endoscopy Center ALONE. If you do not have a responsible pile driver (family member or friend) with you to take you home, your exam cannot be done with sedation and will be cancelled. Arrive one hour early for your procedure. Please bring a list of all of your current medications, including any Over-the Counter medications with you. Medications If you take insulin, diabetic medications or blood thinners such as Coumadin (warfarin), Plavix (clopidogrel), Ticlid (ticlopidine hydrochloride), Agrylin (anagrelide), Xarelto (Rivaroxaban), Pradaxa (Dabigatran), Eliquis (Apixaban), and Effient (Prasugrel). You MUST call the doctors who orders those medicines for instructions on altering the dosage before your colonoscopy. All other medications should be taken the day of the exam with a sip of water including ASPIRIN. Five (5) Days Before Your Colonoscopy Do NOT take medicines that stop diarrhea - such as Imodium, Kaopectate, or Pepto Bismol. Do NOT take fiber supplements - such as Metamucil, Citrucel, or Perdiem. Do NOT take products that contain iron - such as multi-vitamins (the label lists what is in the products). 1 03/2021 Bowel Preparation Instructions for: SuTab Three (3) Days Before Your Colonoscopy Do NOT eat high-fiber foods - such as popcorn, beans, seeds (flax, sunflower, quinoa), multigrain bread, nuts, salad/vegetables, or fresh and dried fruit. One (1) Day Before Your Colonoscopy Only drink clear liquids the ENTIRE DAY before your colonoscopy. Do NOT eat any solid foods. Drink at least 8 ounces of clear liquids every hour after waking up. Clear Liquid (NO RED LIQUIDS) DO NOT DRINK Gatorade, Pedialyte or Powerade Clear broth or bouillon Coffee or tea (no milk or non-dairy creamer) Carbonated and non-carbonated soft drinks Anthony-Aid or other fruit flavored drinks Strained fruit juices (no pulp) Jell-O, popsicles, hard candy Water Alcohol Milk or non-dairy creamers Noodles or vegetables in soup Juice with pulp Liquid you cannot see through Do not use tobacco/vaping products The Bowel preparation tablets will be consumed in two separate parts. Do NOT add ice, sugar or flavorings to the solution. Part 1 At 6:00 PM - Evening before your colonoscopy (Dose 1) (12 tablets) Step 1 - Fill the provided container for 16 ounces of water (up to the fill line). Swallow each of the 12 tablets with a sip of water and drink the entire amount of water over 15 to 20 minutes. Step 2 - Approximately 1 hour after the last tablet is ingested, fill the provided container with 16 ounces of water (up to the fill line), and drink the entire amount over 30 minutes. Step 3 - Approximately 30 minutes after finishing the second container of water, fill the provided container with 16 ounces of water (up to fill line), and drink the entire amount over 30 minutes. Part 2 The morning of colonoscopy (5 to 8 hours prior to the colonoscopy and no sooner than 4 hours from starting Dose 1), open the second bottle of 12 tablets. Repeat STEP 1 to STEP 3 from part 1. You may continue to drink clear liquids until 3 hours before your colonoscopy. 2 03/2021 documented in this encounter [facility] 02-09-2022 Nurse Note REVIEW OF SYSTEMS: General: The patient denies fatigue, denies weight loss, denies weight gain, denies feeling hot, and denies feelings of cold. Eyes: The patient denies glaucoma, denies eye injury/surgery, wears glasses or contacts. Ear/Nose/Throat: The patient notes allergies, denies hayfever, denies ear infections, and denies bloody noses. Cardiovascular: The patient denies chest pain, denies heart disease, denies high blood pressure,denies cardiac stent, denies prior heart attack, denies irregular heart beat, denies high cholesterol, denies poor circulation, denies heart failure, other cardiac issues, denies claudication, denies cold feet, denies peripheral arterial stent. Respiratory: The patient denies tuberculosis, notes pneumonia, denies frequent cough, denies pulmonary embolism, denies shortness of breath, and denies coughing up blood. Gastrointestinal: The patient denies difficulty swallowing, denies acid reflux, denies ulcers, denies vomiting, denies jaundice/hepatitis, denies gallbladder problems, denies black or tarry stools, denies hemorrhoids, denies bleeding from rectum, denies diverticulitis, denies constipation, denies diarrhea, denies loss of stool control, and denies hernias. Kidney/Bladder: The patient notes kidney stones, denies urine infections, and denies bloody urine. Skin: The patient denies a history of skin cancer, denies bleeding/changing moles, and denies a history of skin rash. Neurologic: The patient denies a history of epilepsy/convulsions, denies headaches, denies head/spinal injuries, and denies stroke/TIA. Psychiatric: The patient denies psychiatric medications, denies depression, and denies voices, denies substance abuse. Endocrine: The patient denies thyroid disorders, denies diabetes, and denies hormonal problems. Hematologic: The patient denies a history of bruising, denies bleeding, and denies anemia, denies blood clots. Infections: The patient denies a history of measles and mumps, denies rheumatic fever, and denies sexually transmitted diseases. Musculoskeletal: The patient denies back pain/injury, denies back problems, denies sciatica, denies knee/foot trouble, denies arthritis, or denies gout. When was patient's last Mammogram screening? N/A Last Colonoscopy: none Oral Leyva LPN documented in this encounter [facility] 02-02-2022 History of Present illness Narrative DISTANCE [facility]ALTH VISIT MyChart video visit was used for evaluation of this patient. Patient consents to visit. Patient's location: [place] Chief Complaint No chief complaint on file. HPI Matthew Vivar is a 51 year old male who presents here today via virtual for cough. Patient states he has a cough for the past month or so. Does get this type of cough routinely in the spring time. But now it's more related to covid infection he had a couple months ago. States that it is not all day but more after talking on the phone for long periods of time. Denies shortness of breath or chest pain. Past medical history, appointments, medications, allergies reviewed. Previous Medical History PAST MEDICAL HISTORY Diagnosis Date Deviated septum 12/28/2016 To the right Reactive airway disease 10/2012 small airway response to bronchodilator on PFT Renal calculi Seasonal allergies 08/09/2015 Previous Surgical History PAST SURGICAL HISTORY Procedure Laterality Date PAST SURGICAL HISTORY OF 1992 2000 2003 rt. and left knee reconstruction PAST SURGICAL HISTORY OF 05/17/1977 reconstruction of ureters PAST SURGICAL HISTORY OF 05/17/1987 appendix PAST SURGICAL HISTORY OF ~2009,2010, 2018 lithotripsy Family History FAMILY HISTORY Problem Relation Age of Onset Lipids Mother Hypertension Father other (Parkinsons Disease [Other]) Father No Known Problems Sister Cancer Maternal Grandmother gastric Ischemic Heart Disease Maternal Grandfather Colon Cancer Paternal Grandmother age 70's. spread to liver Parkinson s Disease Paternal Grandfather Breast Cancer Paternal Aunt Diabetes No Family History Stroke No Family History Bleeding disorder No Family History Patient Allergies ALLERGIES Allergen Reactions Beta-Blockers (Beta* Contraindication-Medical Surgical Avoid use of beta blockers while patient is on allergy immunotherapy Seasonal Allergies Other: See Comments cats trees (July, August and September) molds (July through March) ragweed (December, January and February) Current Medications Current Outpatient Medications on File Prior to Visit Medication Sig sertraline (ZOLOFT) 50 mg tablet Take 1/2 tablet daily x6 days then go up to 1 tablet daily. EPINEPHrine (EPIPEN 2-DARRYL) 0.3 mg/0.3 mL auto-injector Inject 0.3 mL intramuscularly as needed. For allergic reaction.Seek emergent medical care immediately after use.Disp:1 2-pakw/system trainer fluticasone (FLONASE) 50 mcg/actuation nasal spray Use 2 Sprays in each nostril once daily. Rinse mouth after use. No current facility-administered medications on file prior to visit. Social History Social History Tobacco Use Smoking status: Never Smokeless tobacco: Never Vaping Use Vaping Use: Never used Substance Use Topics Alcohol use: Yes Comment: once a week Drug use: No Review of Symptoms REVIEW OF SYSTEMS GENERAL: No weight loss, malaise or fevers RESPIRATORY: See HPI CARDIOVASCULAR: Negative for chest pain, leg swelling, hypertension, CHF or palpitations EXAM: There were no vitals taken for this visit. Any vital signs collected today were done so using patient's home equipment, otherwise no vital signs due to distant health visit. PHYSICAL EXAMINATION: VIDEO EXAM: (if done, performed via video enabled technology) GENERAL: alert and appropriate, in no distress, well-hydrated, well nourished, and happy, smiling, interactive SKIN: no rash noted RESPIRATORY: breathing non-labored CHEST: equal chest rise with normal respiratory effort Health Maintenance List HEPATITIS C SCREENING Never done HIV SCREENING Never done COLORECTAL CANCER SCREENING Never done DEPRESSION SCREENING due on 11/10/2019 SHINGRIX VACCINE(2 of 2) due on 12/06/2021 INFLUENZA(1) due on 01/15/2022 DTAP,TDAP,TD(3 - Td or Tdap) due on 07/06/2022 DIABETES SCREEN due on 01/04/2024 LIPID SCREEN due on 01/03/2026 HEPATITIS B Completed COVID-19 VACCINE Completed Data reviewed ASSESSMENT/PLAN: 1. Mild intermittent reactive airway disease without complication - ICD9: 493.90, ICD10: J45.20 (primary diagnosis) Cough variant Asthma - Begin medrol darryl with albuterol and cough suppressant. - follow up if not improving. 2. Post-COVID chronic cough - ICD9: 786.2, 139.8, ICD10: R05.3, U09.9 As above 3. Screening for colon cancer - ICD9: V76.51, ICD10: Z12.11 - CONSULT TO GENERAL SURGERY Esperanza Perez PA-C documented in this encounter [facility] 09-24-2021 Miscellaneous Notes rx refilled on 09/22/21 Alie Ceballos Ma documented in this encounter [facility] 09-19-2021 History of Present illness Narrative DATE:September 19, 2021 PT. NAME: Matthew Vivar [facility]#: [id number] IRB #: [id number]. PROTOCOL: [facility] Brain Study Centrifugal Operator: Carlee De La Cruz MD, , Urban Beebe, PhD, , Von Karimi MD, [employer] civil [employer] draftsperson for study related questions: Terry Iraheta Subject continues to give consent for participation and for procedures related to study YES. Were there changes made to the informed consent since the last visit? NO. If yes, were changes reviewed and explained to subject? N/A Was a new copy of the informed consent signed, placed in the chart, placed in the study file and was a copy given to the patient? N/A Patient Identification was verified by asking the patients Name and Date Of : YES Time:09:57am EKG/ECG was performed on patient. Patient tolerated procedure well. Terry Iraheta, Research Coordinator documented in this encounter [facility] 09-19-2021 History of Present illness Narrative DATE:September 19, 2021 PT. NAME: Matthew Vivar [facility]#: [id number] IRB #: [id number]. PROTOCOL: [facility] Brain Study Centrifugal Operator: Carlee De La Cruz MD, , Urban Beebe, PhD, , Von Karimi MD, [employer] draftsperson for study related questions: Barbra Francis Subject continues to give consent for participation and for procedures related to study YES. Were there changes made to the informed consent since the last visit? NO. If yes, were changes reviewed and explained to subject? N/A Was a new copy of the informed consent signed, placed in the chart, placed in the study file and was a copy given to the patient? N/A Patient Identification was verified by asking the patients Name and Date Of : YES Time: 09:30 Blood drawn with vacutainer and labs drawn per protocol. Butterfly removed after blood draw and secured with sterile gauze. Patient tolerated procedure well. Terry Iraheta, Research Coordinator documented in this encounter [facility] 09-19-2021 History of Present illness Narrative Result of Physical Exam Body System Eyes: Normal Ears, Nose, Mouth and Throat: Normal Cardiovascular: Normal Respiratory: Normal Gastrointestinal: Normal Genitourinary: Not examined Musculoskeletal: Normal Integumentary: Normal Psychiatric: Not examined Handedness: Right hand Results of Mental Status Assessment Mental Assessments Attention: Abnormality Present: No Memory Working Memory: Abnormality Present: No Recent (Episodic) Memory: Abnormality Present: No Remote (Semantic) Memory: Abnormality Present: No Language Spontaneous Speech: Abnormality Present: No Comprehension: Abnormality Present: No Naming: Abnormality Present: No Repetition: Abnormality Present: No Reading: Abnormality Present: No Affect: Abnormality Present: No Craninal Nerve Assessment Visual Anderson: Normal EOM: Normal Nystagmus: Physiologic Pupils: Equal and reactive Ptosis: Absent Trigeminal: Normal CN VII: Normal CN VIII: Normal CN IX: Normal CN X: Normal CN XI: Normal CN XII: Normal Snellen Chart: Left Eye: 20/25 Right Eye: 20/20 Both Eyes: 20/20 Assessment of Motor and Bulk and Tones Motor Assessments Muscle bulk-global: Normal Muscle tone-global: Normal Motor Strength Assessment Shoulder flexion: Right 5 Left 5 Shoulder external rotation: Right 5 Left 5 Shoulder abduction: Right 5 Left 5 Elbow flexion: Right 5 Left 5 Elbow extension: Right 5 Left 5 Wrist flexion: Right 5 Left 5 Wrist extension: Right 5 Left 5 Finger flexion/sales agent casualty insurance: Right 5 Left 5 Flexor pollicis longus: Right 5 Left 5 Abductor pollicis brevis: Right 5 Left 5 Hip flexion: Right 5 Left 5 Hip extension: Right 5 Left 5 Hip abduction: Right 5 Left 5 Hip adduction: Right 5 Left 5 Knee flexion: Right 5 Left 5 Knee extension: Right 5 Left 5 Ankle eversion: Right 5 Left 5 Ankle inversion: Right 5 Left 5 Ankle plantar flexion: Right 5 Left 5 Ankle dorsiflexion: Right 5 Left 5 Extensor halluces longus: Right 5 Left 5 Flexor digitorum longus: Right 5 Left 5 Reflexes - MRC Grading Method Biceps: Right 2+ Left 2+ Triceps: Right 2+ Left 2+ Brachioradialis: Right 2+ Left 2+ Patellar: Right 2+ Left 2+ Achilles: Right 2+ Left 2+ Plantar: Right Downgoing Left Downgoing Weakness?: NO Tremor?: Yes Type of Tremor: Postural and Intention Cerebellar/Coordination Assessment [id number]: Abnormality present: No, Rapid Alternating Movements: Abnormality present: No, [id number]: Abnormality present: No, Gait Gait-global assessment: Normal Sensory/Sensation Sensory System-globlal assessment: Normal Postural and intention tremor to bilateral upper extremities. Shelbi Cruz APRN.CNP documented in this encounter [facility] Evaluation note Diagnosis Examination of participant in clinical trial [facility]* Diagnosis Mild intermittent reactive airway disease without complication- Primary Post-COVID chronic cough Screening for colon cancer Special screening for malignant neoplasms, colon [facility] Diagnosis Screening for colon cancer Special screening for malignant neoplasms, [facility] Examination of participant in clinical trial- Primary [facility] Diagnosis Encounter for immunization- Primary Need for other specified prophylactic vaccination against single bacterial disease Dog bite, initial encounter [facility] Diagnosis URI, acute- Primary Acute upper respiratory infections of unspecified site [facility] Diagnosis Well adult exam- Primary Routine general medical examination at a health care facility Elevated hemoglobin A1c Other abnormal blood chemistry Encounter for lipid screening for cardiovascular disease Screening for lipoid disorders Need for hepatitis C screening test Special screening examination for other specified viral diseases documented in this encounter [facility] note* Diagnosis Encounter for lipid screening for cardiovascular disease- Primary Screening for lipoid disorders documented in this encounter [facility] note* Diagnosis Examination of participant in clinical trial- Primary documented in this encounter [facility] note* Diagnosis Bacterial sinusitis- Primary Unspecified sinusitis (chronic) documented in this encounter [facility] note* Diagnosis Acute cough- Primary documented in this encounter [facility] note* Diagnosis Examination of participant in clinical trial- Primary documented in this encounter [facility] note* Diagnosis Keloid scar- Primary documented in this encounter [facility] note* Diagnosis Lumbar back pain- Primary Lumbago Screening for depression documented in this encounter [facility] note* Diagnosis Lumbar back pain Lumbago documented in this encounter [facility] note* Diagnosis Lumbar strain, subsequent encounter- Primary Plantar fasciitis Plantar fascial fibromatosis Personal history of urinary calculi documented in this encounter [facility] for referral (narrative)* Outpatient Procedure (Routine) - Authorized Specialty Diagnoses / Procedures Referred By Gena alberts Referred To Contact [facility] Diagnoses Screening for colon cancer Procedures COLONOSCOPY SCREENING COLONOSCOPY FLX DX W/COLLJ SPEC WHEN Michelle Angeles MD [address] [place] [address] [facility] [address] [place] [address] Referral ID Status Reason Start Date Expiration Date Visits Requested Visits Authorized [id number] Authorized Auto-Generat ed Referral 02/09/2022 02/09/2023 1 1 [facility] for visit Narrative* Diagnostic Procedure Only (Routine) - Closed Specialty Diagnoses / Procedures Referred By Gena alberts Referred To Contact XR IMAGING Diagnoses Lumbar back pain Procedures XR LUMBAR GENERAL 3V AP/LAT/L5-S1 RADEX SPINE LUMBOSACRAL 2/3 VIEWS Esperanza Perez PA-C [address] [place] [address] Phone: tel: fax: XR IMAGING [id number] Referral ID Status Reason Start Date Expiration Date V isits Requested Visits Authorized [id number] Closed Auto-Generate d Referral 12/05/2024 01/04/2026 1 1 [facility] Reason for Referral Specialty Diagnoses / Procedures Referred By Gena alberts Referred To Contact General Surgery Diagnoses Screening for colon cancer Procedures CONSULT TO GENERAL SURGERY OFFICE/OUTPATIENT NEW HIGH MDM 60-74 MINUTES Esperanza Perez PA-C [address] [place] [address] Referral ID Status Reason Start Date Expiration Date Visits Requested Visits Authorized [id number] Authorized PCP Requested Referral 02/02/2022 02/02/2023 1 1 Summary Purpose Family History No Family History Records FoundNo Family History Records FoundNo Family History Records Found Advance Directives No Advanced Directives Records FoundNo Advanced Directives Records FoundNo Advanced Directives Records Found Additional Source Comments Source Comments (unrecognize d section and content) In the event this informatio n is protected by the Federal Confidentiality of Alcohol and Drug Abuse Patient Records regulations: The Federal rules restrict any use of the information to criminally investigate or prosecute any alcohol or drug abuse patient.[facility]In the event this information is protected by the Federal Confidentiality of Alcohol and Drug Abuse Patient Records regulations: The Federal rules restrict any use of the information to criminally investigate or prosecute any alcohol or drug abuse patient.[facility]healthIn the event this information is protected by the Federal Confidentiality of Alcohol and Drug Abuse Patient Records regulations: The Federal rules restrict any use of the information to criminally investigate or prosecute any alcohol or drug abuse patient.[facility] the event this information is protected by the Federal Confidentiality of Alcohol and Drug Abuse Patient Records regulations: The Federal rules restrict any use of the information to criminally investigate or prosecute any alcohol or drug abuse patient.[facility]healthIn the event this information is protected by the Federal Confidentiality of Alcohol and Drug Abuse Patient Records regulations: The Federal rules restrict any use of the information to criminally investigate or prosecute any alcohol or drug abuse patient.[facility]In the event this information is protected by the Federal Confidentiality of Alcohol and Drug Abuse Patient Records regulations: The Federal rules restrict any use of the information to criminally investigate or prosecute any alcohol or drug abuse patient.[facility]In the event this information is protected by the Federal Confidentiality of Alcohol and Drug Abuse Patient Records regulations: The Federal rules restrict any use of the information to criminally investigate or prosecute any alcohol or drug abuse patient.[facility]In the event this information is protected by the Federal Confidentiality of Alcohol and Drug Abuse Patient Records regulations: The Federal rules restrict any use of the information to criminally investigate or prosecute any alcohol or drug abuse patient.[facility]In the event this information is protected by the Federal Confidentiality of Alcohol and Drug Abuse Patient Records regulations: The Federal rules restrict any use of the information to criminally investigate or prosecute any alcohol or drug abuse patient.[facility]In the event this information is protected by the Federal Confidentiality of Alcohol and Drug Abuse Patient Records regulations: The Federal rules restrict any use of the information to criminally investigate or prosecute any alcohol or drug abuse patient.[facility]In the event this information is protected by the Federal Confidentiality of Alcohol and Drug Abuse Patient Records regulations: The Federal rules restrict any use of the information to criminally investigate or prosecute any alcohol or drug abuse patient.[facility]In the event this information is protected by the Federal Confidentiality of Alcohol and Drug Abuse Patient Records regulations: The Federal rules restrict any use of the information to criminally investigate or prosecute any alcohol or drug abuse patient.[facility]In the event this information is protected by the Federal Confidentiality of Alcohol and Drug Abuse Patient Records regulations: The Federal rules restrict any use of the information to criminally investigate or prosecute any alcohol or drug abuse patient.[facility]In the event this information is protected by the Federal Confidentiality of Alcohol and Drug Abuse Patient Records regulations: The Federal rules restrict any use of the information to criminally investigate or prosecute any alcohol or drug abuse patient.[facility]In the event this information is protected by the Federal Confidentiality of Alcohol and Drug Abuse Patient Records regulations: The Federal rules restrict any use of the information to criminally investigate or prosecute any alcohol or drug abuse patient.[facility]In the event this information is protected by the Federal Confidentiality of Alcohol and Drug Abuse Patient Records regulations: The Federal rules restrict any use of the information to criminally investigate or prosecute any alcohol or drug abuse patient.[facility]In the event this information is protected by the Federal Confidentiality of Alcohol and Drug Abuse Patient Records regulations: The Federal rules restrict any use of the information to criminally investigate or prosecute any alcohol or drug abuse patient.[facility]In the event this information is protected by the Federal Confidentiality of Alcohol and Drug Abuse Patient Records regulations: The Federal rules restrict any use of the information to criminally investigate or prosecute any alcohol or drug abuse patient.[facility]In the event this information is protected by the Federal Confidentiality of Alcohol and Drug Abuse Patient Records regulations: The Federal rules restrict any use of the information to criminally investigate or prosecute any alcohol or drug abuse patient.[facility]In the event this information is protected by the Federal Confidentiality of Alcohol and Drug Abuse Patient Records regulations: The Federal rules restrict any use of the information to criminally investigate or prosecute any alcohol or drug abuse patient.[facility]In the event this information is protected by the Federal Confidentiality of Alcohol and Drug Abuse Patient Records regulations: The Federal rules restrict any use of the information to criminally investigate or prosecute any alcohol or drug abuse patient.[facility]In the event this information is protected by the Federal Confidentiality of Alcohol and Drug Abuse Patient Records regulations: The Federal rules restrict any use of the information to criminally investigate or prosecute any alcohol or drug abuse patient.[facility]In the event this information is protected by the Federal Confidentiality of Alcohol and Drug Abuse Patient Records regulations: The Federal rules restrict any use of the information to criminally investigate or prosecute any alcohol or drug abuse patient.[facility]In the event this information is protected by the Federal Confidentiality of Alcohol and Drug Abuse Patient Records regulations: The Federal rules restrict any use of the information to criminally investigate or prosecute any alcohol or drug abuse patient.[facility]In the event this information is protected by the Federal Confidentiality of Alcohol and Drug Abuse Patient Records regulations: The Federal rules restrict any use of the information to criminally investigate or prosecute any alcohol or drug abuse patient.[facility]In the event this information is protected by the Federal Confidentiality of Alcohol and Drug Abuse Patient Records regulations: The Federal rules restrict any use of the information to criminally investigate or prosecute any alcohol or drug abuse patient.[facility]In the event this information is protected by the Federal Confidentiality of Alcohol and Drug Abuse Patient Records regulations: The Federal rules restrict any use of the information to criminally investigate or prosecute any alcohol or drug abuse patient.[facility]In the event this information is protected by the Federal Confidentiality of Alcohol and Drug Abuse Patient Records regulations: The Federal rules restrict any use of the information to criminally investigate or prosecute any alcohol or drug abuse patient.[facility]In the event this information is protected by the Federal Confidentiality of Alcohol and Drug Abuse Patient Records regulations: The Federal rules restrict any use of the information to criminally investigate or prosecute any alcohol or drug abuse patient.[facility]In the event this information is protected by the Federal Confidentiality of Alcohol and Drug Abuse Patient Records regulations: The Federal rules restrict any use of the information to criminally investigate or prosecute any alcohol or drug abuse patient.[facility]In the event this information is protected by the Federal Confidentiality of Alcohol and Drug Abuse Patient Records regulations: The Federal rules restrict any use of the information to criminally investigate or prosecute any alcohol or drug abuse patient.[facility]In the event this information is protected by the Federal Confidentiality of Alcohol and Drug Abuse Patient Records regulations: The Federal rules restrict any use of the information to criminally investigate or prosecute any alcohol or drug abuse patient.[facility]In the event this information is protected by the Federal Confidentiality of Alcohol and Drug Abuse Patient Records regulations: The Federal rules restrict any use of the information to criminally investigate or prosecute any alcohol or drug abuse patient.[facility]In the event this information is protected by the Federal Confidentiality of Alcohol and Drug Abuse Patient Records regulations: The Federal rules restrict any use of the information to criminally investigate or prosecute any alcohol or drug abuse patient.[facility]In the event this information is protected by the Federal Confidentiality of Alcohol and Drug Abuse Patient Records regulations: The Federal rules restrict any use of the information to criminally investigate or prosecute any alcohol or drug abuse patient.[facility]healthIn the event this information is protected by the Federal Confidentiality of Alcohol and Drug Abuse Patient Records regulations: The Federal rules restrict any use of the information to criminally investigate or prosecute any alcohol or drug abuse patient.[facility]healthIn the event this information is protected by the Federal Confidentiality of Alcohol and Drug Abuse Patient Records regulations: The Federal rules restrict any use of the information to criminally investigate or prosecute any alcohol or drug abuse patient.[facility] Reason for Visit (unrecogniz ed section and content) Reason Comments Informed Consent IRB Reason Comments Refill Request Reason Comments Cough Reason Comments Opened In Error Reason Comments Consult colonoscopy Specialty Diagnoses / Procedures Referred By Gena alberts Referred To Contact General Surgery Diagnoses Screening for colon cancer Procedures CONSULT TO GENERAL SURGERY OFFICE/OUTPATIENT NEW HIGH MDM 60-74 MINUTES Esperanza Perez PA-C [address] [place] [address] Referral ID Status Reason Start Date Expiration Date V isits Requested Visits Authorized [id number] Closed PCP Requested Referral 02/02/2022 02/02/2023 1 1 Reason Comments Appointment IRB Reason Comments Research Phlebotomy IRB Reason Comments Patient Update IRB Reason Comments Dog Bite x last night back of left leg Reason Comments Chest Congestion Reason Comments Physical Cough & congestion Reason Comments Results Reason Comments Research Reason Comments Outside Urology Reason Comments Research IRB 22-877 Reason Comments Sinus Problem sinus pressure, drai nage x 1 week Reason Comments Cough Reason Comments Derm Problem Check mole on back Reason Comments Pain, Back Reason Comments Follow Up Care Teams (unrecognized sec tion and content) Dry Mixer Relationship Specialty Start Date End Date Jacques Avery MD [address] [place], [place] [id number] PCP - General Family Practice 02/11/21 Dry Mixer Relationship Specialty Start Date End Date Jacques Avery MD [address] [place], [place] [id number] PCP - General Family Practice 02/11/21 Dry Mixer Relationship Specialty Start Date End Date Jacques Avery MD [address] [place], [place] [id number] PCP - General Family Medicine 02/11/21 Dry Mixer Relationship Specialty Start Date End Date Jacques Avery MD [address] [place], [place] [id number] PCP - General Family Medicine 02/11/21 Dry Mixer Relationship Specialty Start Date End Date Jacques Avery MD [address] [place] [address] PCP - General Family Medicine 02/11/21 Dry Mixer Relationship Specialty Start Date End Date Jacques Avery MD [address] [place] [address] PCP - General Family Medicine 02/11/21 Dry Mixer Relationship Specialty Start Date End Date Jacques Avery MD [address] [place] [address] PCP - General Family Medicine 02/11/21 Dry Mixer Relationship Specialty Start Date End Date Jacques Avery MD [address] [place] [address] PCP - General Family Medicine 02/11/21 Dry Mixer Relationship Specialty Start Date End Date Jacques Avery MD [address] [place] [address] PCP - General Family Medicine 02/11/21 Dry Mixer Relationship Specialty Start Date End Date Jacques Avery MD [address] [place] [address] PCP - General Family Medicine 02/11/21 Dry Mixer Relationship Specialty Start Date End Date Jacques Avery MD [address] [place] [address] PCP - General Family Medicine 02/11/21 Dry Mixer Relationship Specialty Start Date End Date Jacques Avery MD [address] [place] [address] PCP - General Family Medicine 02/11/21 Dry Mixer Relationship Specialty Start Date End Date Jacques Avery MD [address] [place] [address] PCP - General Family Medicine 02/11/21 Dry Mixer Relationship Specialty Start Date End Date Jacques Avery MD [address] [place] [address] PCP - General Family Medicine 02/11/21 Dry Mixer Relationship Specialty Start Date End Date Jacques Avery MD [address] [place] [address] PCP - General Family Medicine 02/11/21 Dry Mixer Relationship Specialty Start Date End Date Jacques Avery MD [address] [place] [address] PCP - General Family Medicine 02/11/21 Gilbert Lemons, KUNAL.QUALITY ASSURANCE ASSISTANT [address] [place] [address] Road Repairer Family Medicine 04/22/24 Esperanza Perez PA-C [address] [place], [place] [address] [phone] Repairer Family Medicine 04/22/24 Dry Mixer Relationship Specialty Start Date End Date Jacques Avery MD [address] [place] [address] PCP - General Family Medicine 02/11/21 Gilbert Lemons, KUNAL.QUALITY ASSURANCE ASSISTANT [address] [place] [address] Road Repairer Family Medicine 04/22/24 Esperanza Perez PA-C [address] [place] [address] Road Repairer Family Medicine 04/22/24 Dry Mixer Relationship Specialty [place] [address] [place] [address] PCP - General Family Medicine 02/11/21 Gilbert Lemons APRN.QUALITY ASSURANCE ASSISTANT [address] [place] [address] [address] Repairer Family Medicine 04/22/24 Esperanza Perez PA-C [address] [place] [address] [address] [address] Repairer Family Medicine 04/22/24 Dry Mixer Relationship Specialty Start Date End Date Jacques Avery MD [address] [place] [address] PCP - General Family Medicine 02/11/21 Gilbert Lemons APRN.QUALITY ASSURANCE ASSISTANT [address] [place] [address] [address] Repairer Family Medicine 04/22/24 Esperanza Perez PA-C [address] [place] [address] [address] Repairer Family Medicine 04/22/24 Dry Mixer Relationship Specialty Start Date End Date Jacques Avery MD [address] [place] [address] PCP - General Family Medicine 08/21/24 Gilbert Lemons APRN.QUALITY ASSURANCE ASSISTANT [address] [place] [address] [address] Repairer Family Medicine 10/16/24 Esperanza Perez PA-C [address] [place] [address] Road Repairer Family [facility] 10/16/24 Dry Mixer Relationship Specialty Start Date End Date Jacques Avery MD [address] [place] [address] PCP - General Family Medicine 08/21/24 Gilbert Lemons APRN.QUALITY ASSURANCE ASSISTANT [address] [place] [address] Road Repairer Family [facility] 10/16/24 Esperanza Perez PA-C [address] [place] [address] Road Repairer Family Medicine 10/16/24 Dry Mixer Relationship Specialty Start Date End Date Jacques Avery MD [address] [place] [address] PCP - General Family Medicine 08/21/24 Gilbert Lemons APRN.QUALITY ASSURANCE ASSISTANT [address] [place] [address] Road Repairer Family Medicine 10/16/24 Esperanza Perez PA-C [address] [place] [address] Road Repairer Family Medicine 10/16/24 Dry Mixer Relationship Specialty Start Date End Date Jacques Avery MD [address] [place] [address] PCP - General Family Medicine 08/21/24 Gilbert Lemons APRN.QUALITY ASSURANCE ASSISTANT [address] [place] [address] Road Repairer Family [facility] 10/16/24 Esperanza Perez PA-C [address] [place] [address] Road Repairer Family Medicine 10/16/24 Dry Mixer Relationship Specialty Start Date End Date Jacques Avery MD [address] [place] [address] PCP - General Family Medicine 08/21/24 Gilbert Lemons APRN.QUALITY ASSURANCE ASSISTANT [address] [place] [address] [facility] Medicine 10/16/24 Esperanza Perez PA-C [facility] [place] [address] [facility] 10/16/[facility] Dry Mixer Relationship Specialty Start Date End Date Jacques Avery MD [address] [place] [address] PCP - General Family Medicine 08/21/24 Gilbert Lemons APRN.QUALITY ASSURANCE ASSISTANT [facility] [place] [address] [facility] Medicine 10/16/24 Esperanza Perez PA-C [address] [place] [address] Road Repairer [facility] Medicine 10/16/24 (unrecognized sect ion and content) No Status Records FoundNo Status Records FoundNo Status Records Found INFORMATION SOURCE (unrecogn ized section and content) DATE CREATED AUTHOR 08/11/2023 [facility] DATE CREATED AUTHOR AUTHOR'S ORGANIZ ATION 03/01/2025 [facility] DATE CREATED AUTHOR AUTHOR'S ORGANIZ ATION 03/01/2025 [facility] FOR RECORDS PERTAINING TO PATIENTS WHO ARE OR HAVE BEEN ENROLLED IN A CHEMICAL DEPENDENCY/SUBSTANCEABUSE PROGRAM, SOME INFORMATION MAY BE OMITTED. This clinical summary was aggregated from multiple sources. Caution should be exercised in using it in the provision of clinical care. This summary normalizes information from multiple sources, and as a consequence, information in this document may materially change the coding, format and clinical context of patient data. In addition, data may be omitted in some cases. CLINICAL DECISIONS SHOULD BE BASED ON THE PRIMARY CLINICAL RECORDS. [employer] provides no warranty or guarantee of the accuracy or completeness of information in this document.
== END | disposition home or self-care (01) ==
PROVIDERS: PCP Family Medicine; Referring Provider Urology; Visit Provider Urology
DX: Z01.810 Encounter for preprocedural cardiovascular examination (principal)
CPT/HCPCS: 93005

== ENCOUNTER 2025-03-27 08:42 | Outpatient (CLI) | payer OTHER, SELFPAY ==
[2025-03-27 10:03] LABS: Hematocrit 43.0 % (40-54); Hemoglobin 14.9 g/dL (13.0-16.5); Mean Corp Hgb Conc 34.7 g/dL (32-36); Mean Corpuscular Volume 90.1 fL (80-94); Mean Platelet Vol. 9.5 fl (6.2-12.0); Platelet Count 329 K/mm3 (150-450); RBC Distribution Width CV 12.3 % (11.6-14.6); RBC Distribution Width SD 40.9 fl (35.1-43.9); Red Blood Count 4.77 M/mm3 (4.6-6.2); White Blood Count 5.2 K/mm3 (4.4-11.0)
[2025-03-27 10:52] LABS: Anion Gap 11 (5-15); BUN 19 mg/dL (4-19); BUN/Creat Ratio 16.3 RATIO (10-20); Calcium,Total 9.2 mg/dL (7.6-11.0); Carbon Dioxide 25.7 mmol/L (21.0-32.0); Chloride 105 mmol/L (98-108); Glucose 93 mg/dL (70-99); Potassium 3.8 mmol/L (3.3-5.1)
== END 2025-03-27 23:59 | disposition home or self-care (01) ==
PROVIDERS: PCP Family Medicine; Referring Provider Urology; Visit Provider Urology
DX: Z01.812 Encounter for preprocedural laboratory examination (principal)
CPT/HCPCS: 36415; 80048; 85027

== ENCOUNTER → 2025-04-23 | Outpatient (CLI) | payer OTHER, SELFPAY ==
--- NOTE | 2025-04-23 14:45 | RAD_ITS ---
PROCEDURE: ABDOMEN SINGLE VIEW 04/23/2025 REASON FOR EXAM: CALCULUS OF KIDNEY WITH CALCULUS OF URETER TECHNIQUE: Procedure Code: RADABD Modality: DX Procedure: ABDOMEN SINGLE VIEW COMPARISON: Abdomen study dated 02/26/2025 FINDINGS: Bowel gas: A moderate to large amount of stool and gas is present throughout the colon. The patient appears to be constipated. There are few mildly dilated gas-filled loops of small bowel. There is no free intraperitoneal air. Psoas muscles are well outlined. Renal outlines are partially obscured by overlying bowel gas and fecal material within the colon. Calcifications: There is a stone projected over the left kidney measuring approximately 5 mm. 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 There are no fractures or dislocations of the visualized osseous structures. RAD/Abdomen Single View IMPRESSION: The patient appears to be mildly constipated. There is a 5 mm stone projected over the left kidney. Reading Location: [id number]
[2025-04-23 16:41] LABS: PSA,Total - Annual Screen 0.59 ng/mL (0.02-4.00)
== END | disposition home or self-care (01) ==
PROVIDERS: PCP Family Medicine; Referring Provider Urology; Visit Provider Urology
DX: N20.2 Calculus of kidney with calculus of ureter (principal); Z12.5 Encounter for screening for malignant neoplasm of prostate
CPT/HCPCS: 36415; 74018; 84153; G0103